=== PATIENT | male | born 1930 | race Caucasian/White ===

== ENCOUNTER 2016-09-22 13:18 | Inpatient (IN) | payer MEDICARE ==
[~2016-09-22] VITALS: Ht 167.6 cm; Wt 62.5 kg
[~2016-09-22 13:18] MED LIST: /PRIM50TA PO; ASPI81TA7 PO; ATEN25TA PO; CLOP75TA2 PO; COMBIN INH; ENAL5TAB PO; GLYB5TAB5 PO; METF1000 PO; METF500T PO; SYNT25TA PO; ZOCO10TA PO; ZYPR5TAB2 PO; preser vision PO
[2016-09-22 14:15] LABS: MEAN CORPUSCULAR HEMOGLOBIN 34.6 pg (27.0-33.0); MEAN CORPUSCULAR HGB CONC 34.4 g/dl (32.0-36.5); MEAN CORPUSCULAR VOLUME 100.5 fl (80.0-96.0); RED CELL DISTRIBUTION WIDTH 12.2 % (11.5-14.5); WHITE BLOOD COUNT 5.7 K/mm3 (4.0-10.0)
[2016-09-22] MEDS ORDERED: PRESCAP6 PO (14:18)
[2016-09-22] MEDS ORDERED: ATEN25TA PO (14:18)
[2016-09-22] MEDS ORDERED: PROS5TAB PO (14:18)
[2016-09-22] MEDS ORDERED: TYLE500T78 PO (14:18)
[2016-09-22] MEDS ORDERED: SYNT50TA PO (14:18)
[2016-09-22] MEDS ORDERED: OLAN5TAB PO (14:18)
[2016-09-22] MEDS ORDERED: SYST1SOL OU (14:18)
[2016-09-22] MEDS ORDERED: INSUDET SC (14:18)
[2016-09-22] MEDS ORDERED: MIRA33504 PO (14:18)
[2016-09-22] MEDS ORDERED: ROPI1TAB PO (14:18)
[2016-09-22] MEDS ORDERED: PRIM50TA6 PO (14:18)
[2016-09-22] MEDS ORDERED: SIMV10TA2 PO (14:18)
[2016-09-22] MEDS ORDERED: ASPI1TAB PO (14:18)
[2016-09-22 14:20] LABS: INR 0.94
--- NOTE | 2016-09-22 14:27 | REP ---
Clinical: Trauma. Technique: AP view of the pelvis with neutral and frog lateral views of the left hip. Findings: There is an acute fracture through the left femoral neck. Underlying diffuse degenerative changes to the visualized lumbosacral spine, pelvis and hips noted. Impression: Acute left femoral neck fracture. Signed by Marvin Miller MD 09/22/2016 02:18 P
--- NOTE | 2016-09-22 14:28 | REP ---
Clinical: Trauma. Technique: Single supine AP view of the chest. Comparison: 01/27/2016. Findings: Mediastinum and cardiac silhouette stable with evidence for prior sternotomy and CABG. Lung ardon demonstrate diffuse chronic interstitial changes as well as scattered calcified pleural plaques. No obvious acute consolidation, effusion, or pneumothorax. Skeletal structures demonstrate osteopenia and degenerative changes without obvious acute fracture. Impression: Chronic changes. No acute cardiopulmonary process. Signed by Marvin Miller MD 09/22/2016 02:19 P
[2016-09-22 14:37] LABS: ALBUMIN 3.2 GM/DL (3.2-5.2); ALBUMIN/GLOBULIN RATIO 0.84 (1.00-1.93); ALKALINE PHOSPHATASE 96 U/L (45-117); ALT/SGPT 77 U/L (12-78); ANION GAP 8 MEQ/L (8-16); AST/SGOT 44 U/L (15-37); BILIRUBIN,DIRECT < 0.1 MG/DL (0.0-0.2); BILIRUBIN,TOTAL 0.3 MG/DL (0.2-1.0); BLOOD UREA NITROGEN 42 MG/DL (7-18); CARBON DIOXIDE LEVEL 26 MEQ/L (21-32); CHLORIDE LEVEL 100 MEQ/L (98-107); CREATININE FOR GFR 1.21 MG/DL (0.70-1.30); GLOMERULAR FILTRATION RATE > 60.0 (>35); GLUCOSE, FASTING 254 MG/DL (83-110); POTASSIUM SERUM 5.1 MEQ/L (3.5-5.1); SODIUM LEVEL 134 MEQ/L (136-145)
--- NOTE | 2016-09-22 15:14 | HPEPDOC ---
Medical History and Physical Date of Admission 09/22/16 History and Physical ATTENDING: Dr. Bergman PCP: Dr Ruggiero CC: S/P Fall HPI: 85yoM with a past medical history significant for dementia/parkinson's, CAD /CABG x 6, HLD, hypothyroid with recent h/o falls who was carrying a bag of garbage out to road and tripped and fell per . He immediately reported left hip pain, EMS was called. History is provided by , pt with dementia. Skin tear left elbow and abrasion to left side of forehead. Denies any fevers, chills , weakness, fatigue, MCKEON, CP, SOB, cough, palpitations, abdominal pain, N/V/D or changes in bowel or bladder habits. Upon presentation to the hospital the patient was found to have , thus the hospitalist team was consulted. PMHx: CAD/CABG- CANNY in past Dementia IDDM HLD Hypothyroid Parkinson's disease- NCN unsteady gait- walker/cane- non compliant PSHX: appendectomy cholecystectomy CAD/CABG SOCHX: Resides in: [place] Marital Status: Kids: 2 grown Employment: retired [employer] Tobacco use: denies ETOH: denies Illicit Drugs: Denies Recent travel: denies Advanced directives: none FAMHX: Mother: [place] Father: CVA Siblings: 1 sister Alive, unknown. 4 sisters/2 brothers PE, CAD, MM. Children: Alive, well ROS: Pt not able to provide history. PE: GEN: 85yoM, appears stated age. Well-nourished, well developed. No acute distress. Alert, not oriented to time or place. Pleasant, interactive. HEENT: Normocephalic, atraumatic. Pupils are equal, round, and reactive to light. Extraocular movements are intact. No nystagmus appreciated. Sclera are nonicteric. Conjunctiva without injection. Nose midline. Nasal turbinates without bogginess. EACs both patent BL. TMs both visualized and love with good cone of light, no bulging or erythema. No facial asymmetry. Moist mucous membranes. Dentition fair. Pharynx pink and moist, no cobblestoning. Neck supple , trachea midline. No lymphadenopathy or thyromegaly appreciated. CHEST: Regular rate and rhythm, +S1, +S2 LUNGS: Clear to auscultation bilaterally. No wheezes, rales, or rhonchi. Breathing appears symmetric and easy. Patient is speaking in full sentences. No accessory muscle use. ABD: Round, soft, non-tender, non-distended. +Bowel sounds throughout. No rebound or guarding. No costovertebral angle tenderness. EXT: Pulses 2+ bilaterally dorsalis pedis and radial. No lower extremity edema appreciated. SKIN: [place], dry, warm. Capillary refill <2sec. No rashes. skin tear left elbow with bandage, abrasion left side of forehead. NEURO: Alert, not oriented to time or place. 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 XR left hip. Acute left femoral neck fracture elbow XR pending A&P: 85yoM with a past medical history significant for dementia/parkinson's, CAD/CABG x 6, HLD, hypothyroid with recent h/o falls who was carrying a bag of garbage out to road and tripped and fell per . He immediately reported left hip pain, EMS was called The patient will be admitted to /S for at least [address] Bergman's service. Left hip fracture Dr Troy consulted, spoke with him, plan for sugery tomorrow. Pt NPO after midnight. Pt is medically optimized at this time. No other alterable factors that could reduce surgical risk. Unsteady gait/mechanical fall. skin tear/abrasion. dry dressing. CAD/CABG. Atenolol with hold paramters, Hold ASA IDDM. SSI. Levemir- will hold tonight. Parkison's disease/dementia. Cont outpt regimen. HLD. Statin Hypothyroid. Supplement DVT prophylaxis. SCD/TEDS The patient is a Full code Vital Signs 185/82 60 18 97.6 96 RA Laboratory Data Labs 24H Laboratory Tests 2 09/22/16 14:00: Aspartate Amino Transf (AST/SGOT) 44H, Alanine Aminotransferase (ALT/SGPT) 77, Alkaline Phosphatase 96, Total Bilirubin 0.3, Direct Bilirubin < 0.1, Albumin 3.2, Albumin/Globulin Ratio 0.84L, Anion Gap 8, Calcium Level 8.0L, Glomerular Filtration Rate > 60.0, Prothromb Time International Ratio 0.94, Prothrombin Time 12.7, Total Protein 7.0 CBC/BMP Laboratory Tests 09/22/16 14:00 Red Blood Count 2.92 L, Mean Corpuscular Volume 100.5 H, Mean Corpuscular Hemoglobin 34.6 H, Mean Corpuscular Hemoglobin Concent 34.4, Red Cell Distribution Width 12.2 Home Medications Scheduled (Preservision Areds 2) 1 Cap Cap 1 CAP PO BID Acetaminophen (Tylenol Extra Strength) 500 Mg Tab 500 MG PO TID Aspirin (Aspirin 81) 81 Mg Tab 81 MG PO DAILY Atenolol (Atenolol) 25 Mg Tab 25 MG PO DAILY Finasteride (Proscar) 5 Mg Tab 5 MG PO DAILY Insulin Detemir (Levemir) 1 Units/0.01 Ml Susp 10 UNITS SC QHS Levothyroxine Sodium (Synthroid) 50 Mcg Tab 50 MCG PO DAILY Olanzapine (Olanzapine) 5 Mg Tab 5 MG PO QHS Polyethylene Glycol (Miralax) 1 Pow Pow 17 GM PO DAILY Polyethylene Glycol (Systane 0.4-0.3 %) 15 Ml Peri 1 DROP OU QHS Primidone (Primidone) 50 Mg Tab 100 MG PO BID Ropinirole Hydrochloride (Ropinirole HCl) 1 Mg Tab 1 MG PO BID Simvastatin (Simvastatin) 10 Mg Tab 10 MG PO QHS Allergies Coded Allergies: Caffeine (Verified Allergy, Unknown, 11/06/12) Loratadine (Verified Adverse Reaction, Mild, CLARITIN D - DIFFICULTY VOIDING, 11/06/12) Pentazocine (Verified Adverse Reaction, Mild, HALLUCINATIONS, 11/06/12) Pseudoephedrine (Verified Adverse Reaction, Mild, CLARITIN D - DIFFICULTY VOIDING, 11/06/12) Magdalene Ferguson Sep 22, 2016 15:14
--- NOTE | 2016-09-22 15:29 | REP ---
CT HEAD WITHOUT CONTRAST: HISTORY: Trauma. COMPARISON: 12/08/2012 Areas of decreased attenuation are present in the periventricular white matter. This represents small vessel ischemic disease. There is no intraparenchymal hemorrhage, mass or midline shift. The ventricular system and cortical sulci are dilated consistent with moderate volume loss. There is no extracerebral collection. There is no fracture. The visualized sinuses are clear. IMPRESSION: 1. Small vessel ischemic disease. 2. Moderate volume loss. Signed by Prosper Chinchilla MD 09/22/2016 03:35 P
[2016-09-22] MEDS ORDERED: DEXTROSE 50% 50 ML SYRINGE IV PRN (15:30)
[2016-09-22] MEDS ORDERED: GLUCAGON FOR INJ 1 MG VIAL (J1610) SC PRN (15:30)
[2016-09-22] MEDS ORDERED: GLUCOSE 4 GM CHEW TABLET PO PRN (15:30)
--- NOTE | 2016-09-22 15:47 | REP ---
LEFT ELBOW SERIES COMPLETE: 09/22/2016. Clinical history: Trauma. Five views are provided including angled oblique lateral. There are no prior pertinent studies. Findings. There is soft tissue swelling over the olecranon and ossific density adjacent to the posterior olecranon at the insertion of the triceps tendon. There is a partial gap between that ossific density and the posterior portion of the olecranon. This suggests avulsion, chronic versus acute. Some focal swelling may reflect acute finding or olecranon bursitis. I do not see any definite joint effusion. There is no supracondylar fracture. 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 The radial head is without a fracture. The coronoid process of the ulna intact. Impression: 1. Soft tissue swelling over the olecranon which may reflect some olecranon bursitis, acute or chronic. There is ossification at the distal course of the triceps near its insertion which appears mildly avulsed, chronic versus acute. Please correlate clinically. 2. Bilateral epicondylitis with some soft tissue calcifications there. No other acute finding. Signed by Adonis Walker MD 09/22/2016 08:22 P
--- NOTE | 2016-09-22 17:32 | EDDOCDS ---
Nurse's Notes [facility] Name: Aashish Pickens Age: 85 yrs Sex: Male : 1930 Arrival Date: 09/22/2016 Time: 13:18 Bed Admit Hold Private MD: Haley Ruggiero E Diagnosis: Fall on same level from slipping, tripping and stumbling;2-part displaced fracture of surgical neck of left humerus Presentation: 09/22 13:22 Presenting complaint: EMS states: tripped and fell at home onto pavement. Pt c/o left ttb hip pain and has abrasion to left forehead, covered upon arrival. Pt at baseline mentality : with demencia. Adult Sepsis Screening: The patient does not have new or worsening altered mentation. Patient's respiratory rate is less than 22. Systolic blood pressure is greater than 100. Patient has a qSOFA score of 0- Negative Sepsis Screen. Suicide/Homicide risk assessment- Unable to assess. Status: Patient is not a well services operator or dependent. Transition of care: patient was not received from another setting of care. 13:22 Acuity: ROXANA Level 3 ttb 13:22 Method Of Arrival: Ambulance ttb Triage Assessment: 13:29 General: Appears in no apparent distress, well nourished, well groomed, Behavior is ttb appropriate for age, at baseline. Pain: Location: left hip. Neurological: Level of Consciousness is awake, alert. Cardiovascular: Heart tones S1 S2 present Chest pain is denied. Respiratory: Airway is patent Respiratory effort is even, unlabored, Respiratory pattern is regular, symmetrical, Denies cough, shortness of breath. GI: Bowel sounds present X 4 quads. Derm: Skin is jaundiced. Derm: abrasion noted to left forehead, left elbow, left knee. Musculoskeletal: Range of motion intact in all extremities. No deformity noted Reports pain in left leg. Historical: - Allergies: Talwin (hallucinations); Morphine (Nausea); Claritin-D 12 Hour (urinary retention); caffeine (hypotension/bradycardia); - Home Meds: 1. aspirin 81 mg Oral chew 1 tab once daily (Last dose: 09/22/2016 08:00) 2. atenolol 25 mg Oral tab 1 tab once daily (Last dose: 09/22/2016 08:00) 3. Levemir subcutaneous 10 unit nightly (Last dose: 09/21/2016 20:00) 4. Synthroid 50 mcg Oral tab 1 tab once daily (Last dose: 09/22/2016 08:00) 5. olanzapine 2.5 mg oral tab 1 tabs nightly (Last dose: 09/21/2016 21:00) 6. primidone 100 mg Oral 1 tab twice a day (Last dose: 09/22/2016 08:00) 7. Proscar 5 mg Oral tab 1 tab once daily (Last dose: 09/22/2016 08:00) 8. Zocor 10 mg Oral tab 1 tab nightly (Last dose: 09/21/2016) 9. PreserVision AREDS oral 1 tab daily 10. ropinirole 1 mg oral tab BID (Last dose: 09/22/2016 08:00) 11. Tylenol 325 mg Oral tab 1 tab twice a day (Last dose: 09/22/2016 08:00) - PMHx: CAD; Dementia; Diabetes - IDDM: controlled; Hypercholesterolemia; Hypothyroidism; Parkinson's Disease; - PSHx: Appendectomy; Cholecystectomy; CABG; - Social history: Smoking status: Patient states was never smoker of tobacco. dementia . - Family history: Not pertinent. - : The pt / caregiver states he / she is not on anticoagulants. Home medication list is obtained from family members. - Exposure Risk Screening:: None identified. - History obtained from: . Screenin:31 Screening information is obtained from the patient. Fall risk: At risk due to age, ttb apparent cognitive impairment, gait disturbance, immobility, injury, prior history of falls, The following interventions are performed due to a positive Fall Risk Screen: Fall Risk is added to Special Handling on the patient Summary Screen. A Fall Risk Bracelet was applied to the patient. Side Rails are placed in the up position. A Call Jarrett is given with instruction to call for help when getting out of bed. Assistance ADL's: Requires assistance with meal preparation, this assistance is provided by bathing, assistance is provided by dressing, assistance is provided by toileting, assistance is provided by ambulation, assistance is provided by housework, assistance is provided by medication administration, assistance is provided by family members. Abuse/DV Screen: The patient / caregiver reports he/she is: pt cannot be assessed for living situation at this time. Nutritional screening: No deficits noted. 16:10 Advance Directives: There is an active Power of Barrel Assembler, wfe. home support is adequate.ttb Assessment: 13:31 General: see triage assessment. here at bedside. Pt in CT.. ttb 14:20 Reassessment: Patient appears in no apparent distress at this time. pt resting on ttb stretcher. at bedside. Labs drawn per orders. NAD noted. Pain meds not needed at this time but will monitor. . Neurological: Level of Consciousness is awake, alert. Respiratory: Airway is patent Respiratory effort is even, unlabored. Derm: Skin is jaundiced. 14:43 General: hospitalist in with pt at this time. Pt remains awake and alert, comfortable ttb on stretcher.. 15:00 General: concerned with discharge after surgery. She is worried she will not be ttb able to adequately take care of pt.....she was encouraged to speak with land use planner and PSA while in hospital for safe discharge.. 15:45 Reassessment: Patient appears in no apparent distress at this time. pt resting on ttb stretcher. NAD noted. Awaiting admission to floor.. 16:50 Reassessment: Patient appears in no apparent distress at this time. SBAR sent to floor. ttb Marco A Quintero to receive pt. Pt dislodged own IV. Confused. Resting on stretcher. Tolerated gingerale well. No diff swallowing. . 17:29 General: IV started . pt resting on stretcher. NAD noted. Report given to floor and is ttb ready to accept pt at this time.. Vital Signs: 13:26 BP 185 / 82; Pulse 60; Resp 18; Temp 97.6(TE); Pulse Ox 96% on R/A; Weight 72.57 kg dsf (R); Height 5 ft. 6 in. (167.64 cm); 16:01 BP 189 / 81 (auto/); ttb 16:06 Pulse 62 MON; Pulse Ox 95% ; ttb 16:27 BP 186 / 83 (auto/); ttb 16:28 Pulse 68 MON; Pulse Ox 92% ; ttb 16:37 Pulse 64 MON; Resp 18; Temp 96.7(O); Pulse Ox 94% on R/A; Pain 0/10; ttb 13:26 Body Mass Index 25.82 (72.57 kg, 167.64 cm) dsf Vitals: 13:26 Log In Time N/A - ambulance arrival. dsf ED Course: 13:19 Patient visited by Marlene Moran. cmb 13:19 Haley Ruggiero is Private Physician. cmb 13:19 Daniel Delarosa FNP is [facility]. ke 13:19 Patient moved to Waiting cmb 13:19 Patient moved to 6 cmb 13:20 Patient visited by Daniel Delarosa FNP. ke 13:20 Patient visited by Daniel Delarosa FNP. ke 13:23 Triage Initiated ttb 13:31 The patient / caregiver is instructed regarding the plan of care and ED course. ttb Accompanied by Family Member, Patient has correct armband on for positive identification. Placed in gown. Bed in low position. Call light in reach. Side rails up X2. 13:31 Maintain field IV. Dressing intact. Good blood return noted. Site clean & dry. Gauge & ttb site: 20LH. 13:32 Patient visited by Cyndee Moreno RN. ttb 13:42 Patient visited by Cyndee Moreno RN. ttb 14:02 CBC Sent. ttb 14:02 BMP Sent. ttb 14:02 Liver Profile Sent. ttb 14:02 PT/INR Sent. ttb 14:04 Suzy Zee is Hospitalizing Provider. ke 14:06 EKG done. (by ED staff). Reviewed by Daniel LIZARRAGA. cmb 14:16 Patient visited by Marlene Moran. cmb 14:20 Patient visited by Cyndee Moreno RN. ttb 14:48 Hip,AP,LAT to include Pelvis Returned. EDMS 14:48 Chest, 1 View Returned. EDMS 15:24 [facility] [place] Payment Agreement was scanned into [employer] and attached to record. lg 15:40 CT Head Without Contrast Returned. EDMS 16:09 Patient visited by Cyndee Moreno RN. ttb 16:13 Patient visited by Cyndee Moreno RN. ttb 16:21 Patient moved to Admit Hold kpj 16:33 Elbow, Complete Returned. EDMS 16:43 Discontinued IV lock intact, bleeding controlled, pressure dressing applied, No ttb redness/swelling at site. pt dislodged by accident. 16:44 No procedures done that require assistance. ttb 16:51 Patient visited by Cyndee Moreno RN. ttb 17:25 Inserted peripheral IV: 20gauge IV in left forearm Patient tolerated the procedure well.ttb Administered Medications: 14:01 Not Given (Other Intervention Used): morphine 2 mg IVP every 15 minutes; Document pain ke score/vitals after each dose (Hold if SBP < 90mmHg) x3 14:02 Drug: NS 0.9% 1000 ml [sodium chloride 0.9 % intravenous solution] Route: IV; Rate: 100 ttb mL/hr; Site: left hand; 16:09 Follow up: Response: No Adverse Reaction; IV Status: Completed infusion ttb 17:28 Not Given (pain meds not given. no nausea): Ondansetron 4 mg IVP once ttb 17:28 Not Given (Patient Refused; no pain per pt. no distress noted): fentaNYL (PF) 25 mcg ttb IVP once Order Results: Lab Order: CBC; SPEC'M 09/22/16 14:00 Test: WHITE BLOOD COUNT; Value: 5.7; Range: 4.0-10.0; Units: K/mm3; Status: F Test: RED BLOOD COUNT; Value: 2.92; Range: 4.30-6.10; Abnormal: Below low normal; Units: M/mm3; Status: F Test: HEMOGLOBIN; Value: 10.1; Range: 14.0-18.0; Abnormal: Below low normal; Units: g/dl; Status: F Test: HEMATOCRIT; Value: 29.3; Range: 42.0-52.0; Abnormal: Below low normal; Units: %; Status: F Test: MEAN CORPUSCULAR VOLUME; Value: 100.5; Range: 80.0-96.0; Abnormal: Above high normal; Units: fl; Status: F Test: MEAN CORPUSCULAR HEMOGLOBIN; Value: 34.6; Range: 27.0-33.0; Abnormal: Above high normal; Units: pg; Status: F Test: MEAN CORPUSCULAR HGB CONC; Value: 34.4; Range: 32.0-36.5; Units: g/dl; Status: F Test: RED CELL DISTRIBUTION WIDTH; Value: 12.2; Range: 11.5-14.5; Units: %; Status: F Test: PLATELET COUNT, AUTOMATED; Value: 227; Range: 150-450; Units: k/mm3; Status: F Lab Order: BMP; SPEC09/22/16 14:00 Test: GLUCOSE, FASTING; Value: 254; Range: 83-110; Abnormal: Above high normal; Units: MG/DL; Status: F Test: BLOOD UREA NITROGEN; Value: 42; Range: 7-18; Abnormal: Above high normal; Units: MG/DL; Status: F Test: CREATININE FOR GFR; Value: 1.21; Range: 0.70-1.30; Units: MG/DL; Status: F Test: GLOMERULAR FILTRATION RATE; Value: > 60.0; Range: >35; Status: F Test: SODIUM LEVEL; Value: 134; Range: 136-145; Abnormal: Below low normal; Units: MEQ/L; Status: F Test: POTASSIUM SERUM; Value: 5.1; Range: 3.5-5.1; Units: MEQ/L; Status: F Test: CHLORIDE LEVEL; Value: 100; Range: 98-107; Units: MEQ/L; Status: F Test: CARBON DIOXIDE LEVEL; Value: 26; Range: 21-32; Units: MEQ/L; Status: F Test: ANION GAP; Value: 8; Range: 8-16; Units: MEQ/L; Status: F Test: CALCIUM LEVEL; Value: 8.0; Range: 8.8-10.2; Abnormal: Below low normal; Units: MG/DL; Status: F Test Note: ; Units are mL/min/1.73 m2 Chronic Kidney Disease Staging per NKF: Stage I & II GFR >=60 Normal to Mildly Decreased Stage III GFR 30-59 Moderately Decreased Stage IV GFR 15-29 Severely Decreased Stage V GFR <15 Very Little GFR Left ESRD GFR <15 on PROPERTY INSPECTOR Lab Order: Liver Profile; SPEC09/22/16 14:00 Test: AST/SGOT; Value: 44; Range: 15-37; Abnormal: Above high normal; Units: U/L; Status: F Test: ALT/SGPT; Value: 77; Range: 12-78; Units: U/L; Status: F Test: ALKALINE PHOSPHATASE; Value: 96; Range: 45-117; Units: U/L; Status: F Test: BILIRUBIN,TOTAL; Value: 0.3; Range: 0.2-1.0; Units: MG/DL; Status: F Test: BILIRUBIN,DIRECT; Value: < 0.1; Range: 0.0-0.2; Units: MG/DL; Status: F Test: TOTAL PROTEIN; Value: 7.0; Range: 6.4-8.2; Units: GM/DL; Status: F Test: ALBUMIN; Value: 3.2; Range: 3.2-5.2; Units: GM/DL; Status: F Test: ALBUMIN/GLOBULIN RATIO; Value: 0.84; Range: 1.00-1.93; Abnormal: Below low normal; Status: F Lab Order: PT/INR; SPEC'M 09/22/16 14:00 Test: PROTHROMBIN TIME; Value: 12.7; Range: 12.3-14.5; Units: SECONDS; Status: F Test: INR; Value: 0.94; Status: F Test Note: ; THERAPUTIC HUMAN INR VALUES INDICATIONS NORMAL RANGES PROPHYLAXIS/TREATMENT OF: VENOUS THROMBOSIS 2.0-3.0 PULMONARY EMBOLISM 2.0-3.0 PREVENTION OF SYSTEMIC EMBOLISM FROM: TISSUE HEART VALVES 2.0-3.0 ACUTE MYOCARDIAL INFARCTION 2.0-3.0 VALVULAR HEART DISEASE 2.0-3.0 ATRIAL FIBRILLATION 2.0-3.0 MECHANICAL VALVES(HIGH RISK) 2.5-3.5 RECURRENT MYOCARDIAL INFARCTION 2.5-3.5 Radiology Order: CT Head Without Contrast Test: CT Head Without Contrast REASON FOR EXAMINATION: Trauma; CT HEAD WITHOUT CONTRAST:; ; HISTORY: Trauma.; ; COMPARISON: 12/08/2012; ; Areas of decreased attenuation are present in the periventricular white matter.; This represents small vessel ischemic disease. There is no intraparenchymal; hemorrhage, mass or midline shift. The ventricular system and cortical sulci are; dilated consistent with moderate volume loss. There is no extracerebral; collection. There is no fracture. The visualized sinuses are clear.; ; IMPRESSION:; ; 1. Small vessel ischemic disease.; ; 2. Moderate volume loss.; ; ; Signed by; Prosper Chinchilla MD 09/22/2016 03:35 P; Radiology Order: Elbow, Complete Test: Elbow, Complete REASON FOR EXAMINATION: Trauma; Left elbow: 09/22/2016; ; Clinical history: Trauma.; ; Five views are provided including angled oblique lateral.; ; There are no prior pertinent studies.; ; Findings. There is soft tissue swelling over the olecranon and ossific density; adjacent to the posterior olecranon at the insertion of the triceps tendon.; There is a partial gap between that ossific density and the posterior portion of; the olecranon. This suggests avulsion, chronic versus acute. Some focal swelling; may reflect acute finding or olecranon bursitis. I do not see any definite joint; effusion. There is no supracondylar fracture. Small amount of soft tissue; calcification adjacent to the medial epicondyle as well as the lateral condyle; representing some chronic epicondylitis with calcifications at the; ligamentous/tendinous insertions. The radial head is without a fracture. The; coronoid process of the ulna intact.; ; Impression:; 1. Soft tissue swelling over the olecranon which may reflect some olecranon; bursitis, acute or chronic. There is ossification at the distal course of the; triceps near its insertion which appears mildly avulsed, chronic versus acute.; Please correlate clinically.; 2. Bilateral epicondylitis with some soft tissue calcifications there. No other; acute finding.; ; ; ; ; Unreviewed; Radiology Order: Hip,AP,LAT to include Pelvis Test: Hip,AP,LAT to include Pelvis REASON FOR EXAMINATION: Trauma; Clinical: Trauma.; ; Technique: AP view of the pelvis with neutral and frog lateral views of the left; hip.; ; Findings:; There is an acute fracture through the left femoral neck. Underlying diffuse; degenerative changes to the visualized lumbosacral spine, pelvis and hips noted.; ; Impression:; Acute left femoral neck fracture.; ; ; Signed by; Marvin Miller MD 09/22/2016 02:18 P; Radiology Order: Chest, 1 View Test: Chest, 1 View REASON FOR EXAMINATION: Trauma; Clinical: Trauma.; ; Technique: Single supine AP view of the chest.; ; Comparison: 01/27/2016.; ; Findings:; Mediastinum and cardiac silhouette stable with evidence for prior sternotomy and; CABG. Lung ardon demonstrate diffuse chronic interstitial changes as well as; scattered calcified pleural plaques. No obvious acute consolidation, effusion,; or pneumothorax. Skeletal structures demonstrate osteopenia and degenerative; changes without obvious acute fracture.; ; Impression:; Chronic changes. No acute cardiopulmonary process.; ; ; Signed by; Marvin Miller MD 09/22/2016 02:19 P; Outcome: 13:32 CT Study completed. ttb 14:04 Decision to Hospitalize by Provider. ke 16:43 Discharge Assessment: Patient awake and alert. patient administered narcotics - no. ttb 17:25 Property given to family member, jeans, belt, shoes taken home by . ttb 17:29 The following High Risk Discharge criteria are identified: Yes, pt transferred to ttb floor.. Admitted to Med/Surg accompanied by tech, via stretcher, with chart. Condition: stable. Admission hand-off: Report called to MARCO A Quintero receiving pt. SBAR received. 17:31 Patient left the ED. ttb Signatures: Dispatcher [employer] EDFL Dilcia Fischer RN RN Tamara Frenandez, Javier Reg Daniel Delarosa, CUSHION GUM APPLICATOR CUSHION GUM APPLICATORIfeoma JohnsonRN RN Marlene Bro Teresa, RN RN ttb MTDD
--- NOTE | 2016-09-22 17:32 | EDDOCDS ---
Physician Documentation [facility] Name: Aashish Pickens Age: 85 yrs Sex: Male : 1930 Arrival Date: 09/22/2016 Time: 13:18 Bed Admit Hold Private MD: Haley Ruggiero E Disposition: 09/22/16 14:04 Hospitalization ordered by Suzy Zee for Inpatient Admission. Preliminary diagnosis are Fall on same level from slipping, tripping and stumbling, 2-part displaced fracture of surgical neck of left humerus. - Bed requested for 5 [place]. - Status is Inpatient Admission. ttb - Condition is Stable. - Problem is new. - Symptoms are unchanged. Historical: - Allergies: Talwin (hallucinations); Morphine (Nausea); Claritin-D 12 Hour (urinary retention); caffeine (hypotension/bradycardia); - Home Meds: 1. aspirin 81 mg Oral chew 1 tab once daily (Last dose: 09/22/2016 08:00) 2. atenolol 25 mg Oral tab 1 tab once daily (Last dose: 09/22/2016 08:00) 3. Levemir subcutaneous 10 unit nightly (Last dose: 09/21/2016 20:00) 4. Synthroid 50 mcg Oral tab 1 tab once daily (Last dose: 09/22/2016 08:00) 5. olanzapine 2.5 mg oral tab 1 tabs nightly (Last dose: 09/21/2016 21:00) 6. primidone 100 mg Oral 1 tab twice a day (Last dose: 09/22/2016 08:00) 7. Proscar 5 mg Oral tab 1 tab once daily (Last dose: 09/22/2016 08:00) 8. Zocor 10 mg Oral tab 1 tab nightly (Last dose: 09/21/2016) 9. PreserVision AREDS oral 1 tab daily 10. ropinirole 1 mg oral tab BID (Last dose: 09/22/2016 08:00) 11. Tylenol 325 mg Oral tab 1 tab twice a day (Last dose: 09/22/2016 08:00) - PMHx: CAD; Dementia; Diabetes - IDDM: controlled; Hypercholesterolemia; Hypothyroidism; Parkinson's Disease; - PSHx: Appendectomy; Cholecystectomy; CABG; - Social history: Smoking status: Patient states was never smoker of tobacco. dementia . - Family history: Not pertinent. - : The pt / caregiver states he / she is not on anticoagulants. Home medication list is obtained from family members. - Exposure Risk Screening:: None identified. - History obtained from: . Vital Signs: 09/22 13:26 BP 185 / 82; Pulse 60; Resp 18; Temp 97.6(TE); Pulse Ox 96% on R/A; Weight 72.57 kg / dsf 159.99 lbs (R); Height 5 ft. 6 in. (167.64 cm); 16:01 BP 189 / 81 (auto/); ttb 16:06 Pulse 62 MON; Pulse Ox 95% ; ttb 16:27 BP 186 / 83 (auto/); ttb 16:28 Pulse 68 MON; Pulse Ox 92% ; ttb 16:37 Pulse 64 MON; Resp 18; Temp 96.7(O); Pulse Ox 94% on R/A; Pain 0/10; ttb 13:26 Body Mass Index 25.82 (72.57 kg, 167.64 cm) dsf MDM: 13:25 Elbow, Complete Ordered. EDMS 13:25 CT Head Without Contrast Ordered. EDMS 13:25 Hip,AP,LAT to include Pelvis Ordered. EDMS 13:39 NS 0.9% 1000 ml IV at 100 mL/hr continuous ordered. ke 13:39 Ondansetron 4 mg IVP once ordered. ke 13:40 morphine 2 mg IVP every 15 minutes; Document pain score/vitals after each dose (Hold if ke SBP < 90mmHg) x3 ordered. 13:41 Chest, 1 View Ordered. EDMS 13:41 CBC Ordered. EDMS 13:41 BMP Ordered. EDMS 13:41 Liver Profile Ordered. EDMS 13:41 PT/INR Ordered. EDMS 13:41 ECG WITH READING ER PHYS+CARDIAG ordered. EDMS 13:41 UA Ordered. EDMS 13:42 BED REQUEST+ADM ordered. EDMS 14:01 morphine 2 mg IVP every 15 minutes; Document pain score/vitals after each dose (Hold if ke SBP < 90mmHg) x3 ordered. 14:01 fentaNYL (PF) 25 mcg IVP once ordered. ke 14:54 Financial registration complete. lg 15:24 [facility] [place] Agreement was scanned into [employer] and attached to record. lg 15:26 CONSISTENT CARBOHYDRATES ordered. EDMS 15:26 NPO DIET ordered. EDMS 15:58 Admission / Observation Status ordered. EDMS Administered Medications: 14:01 Not Given (Other Intervention Used): morphine 2 mg IVP every 15 minutes; Document pain ke score/vitals after each dose (Hold if SBP < 90mmHg) x3 14:02 Drug: NS 0.9% 1000 ml [sodium chloride 0.9 % intravenous solution] Route: IV; Rate: 100 ttb mL/hr; Site: left hand; 16:09 Follow up: Response: No Adverse Reaction; IV Status: Completed infusion ttb 17:28 Not Given (pain meds not given. no nausea): Ondansetron 4 mg IVP once ttb 17:28 Not Given (Patient Refused; no pain per pt. no distress noted): fentaNYL (PF) 25 mcg ttb IVP once Signatures: Dispatcher [employer] EDMS Tamara Polo, Javier Reg lg Daniel Delarosa, SUPERVISOR REAL ESTATE OFFICE SUPERVISOR REAL ESTATE OFFICE Cyndee Paz RN RN ttb Maria D Hernandez RN RN [id number] The chart was reviewed and I authenticate all verbal orders and agree with the evaluation and treatment provided.Attachments: 15:24 [facility] Payment Agreement lg MTDD
[2016-09-22 18:00] VITALS: BP 172/79
[2016-09-22] MEDS: HumaLOG INSULIN (NovoLOG) PER UNIT SC SCH (18:18)
[2016-09-22] MEDS: OLANZapine 5 MG TAB PO SCH (21:00)
[2016-09-22] MEDS: PRIMIDONE 50 MG TAB PO SCH (21:00)
[2016-09-22] MEDS: rOPINIRole 1MG TAB PO SCH (21:00)
[2016-09-22] MEDS: SIMVASTATIN 10 MG TAB PO SCH (21:00)
--- NOTE | 2016-09-22 21:09 | CR ---
DATE OF CONSULTATION: 09/22/2015 CHIEF COMPLAINT: Left hip pain. HISTORY OF PRESENT ILLNESS This is a 85-year-old male who was helping carry some trash out to the garbage and he tripped and fell. Had left hip pain, could not stand or bear weight. Does have a history of dementia, Parkinson's disease and other medical issues. 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 MEDICAL HISTORY: Includes coronary artery disease, dementia, insulin-dependent diabetes, hypothyroid Parkinson's disease, gait disturbance, noncompliance. PAST SURGICAL HISTORY: Includes appendectomy, cholecystectomy, Coronary artery bypass graft. SOCIAL HISTORY Lives with his spouse in [place]. Does not drink or smoke. FAMILY HISTORY: Is not contributory. REVIEW OF SYSTEMS He is not able to participate with a review of systems. CLINICAL EXAMINATION: He appears to be stated age. He is alert and confused. He is asking for his trousers. He is pleasant and not combative. He is not short of breath and he does not appear to be very uncomfortable. CORONARY: Seems to be regular. LUNGS: He is not short of breath. ABDOMEN: Is soft and nontender. EXTREMITY: Pain with manipulation of the left hip. Slight shortening left compared to right. Warm, well-perfused lower extremity. No peripheral edema. SKIN: Healthy. Abrasion on the left elbow. Small abrasion left side of forehead. IMAGING STUDIES: Femoral neck fracture displaced. IMPRESSION: 85-year-old male femoral neck fracture, displaced, traumatic. Previous ambulator. RECOMMENDATIONS: I contacted the patient's spouse on the telephone and talked with her about the patient's condition. This spouse, having been a nurse understood the patient's pathology and we talked about recommending a hemiarthroplasty which would be a partial hip replacement versus doing nothing. His , Aida, agreed that as a previous ambulator he would prefer to walk again and agreed that hemiarthroplasty was a0 reasonable option. We completed a consent document, telephone consent, which was witnessed by a floor nurse. We talked about the procedure proposed, alternatives such as doing nothing, risks including but not limited to , limp, infection, need for more surgery or dislocation and she agreed that we should proceed. He will be added on the OR schedule as an add-on. I will coordinate care with the hospitalist and the OR team. I also spoke with the patient's about the possibility that Dr. Jimy Field who is operations consultant tomorrow 09/23 may be participating or completing the case. The spouse expressed no concerns whether it was Dr. Jimy Field or myself to do this case.
[2016-09-22 22:00] VITALS: BP 180/74
[2016-09-23] VITALS (7 sets, daily range): BP systolic 130–206; BP diastolic 60–94
[2016-09-23] MEDS: SIMVASTATIN 10 MG TAB PO SCH ×2 (00:16→21:36)
[2016-09-23] MEDS: PRIMIDONE 50 MG TAB PO SCH ×3 (00:16→21:36)
[2016-09-23] MEDS: OLANZapine 5 MG TAB PO SCH ×2 (00:17→21:36)
[2016-09-23] MEDS: rOPINIRole 1MG TAB PO SCH ×3 (00:17→21:36)
[2016-09-23] MEDS ORDERED: ACETAMINOPHEN 650 MG SUPP PR PRN (04:00)
[2016-09-23] MEDS ORDERED: ACETAMINOPHEN 650 MG SUPP PR ONE (04:00)
[2016-09-23] MEDS: LEVOTHYROXINE 0.05 MG TAB (50 MCG) PO SCH (06:16)
[2016-09-23 06:48] LABS: BASO % 0.1 % (0.0-1.0); EOS # 0.1 K/mm3 (0.0-0.50); EOS % 0.7 % (0.0-3.0); LARGE UNSTAINED CELL # 0.1 K/mm3 (0.0-0.4); LARGE UNSTAINED CELL % 0.8 % (0.0-4.0); LYMPH # 0.6 K/mm3 (1.5-4.5); LYMPH % 5.7 % (24.0-44.0); MEAN CORPUSCULAR HEMOGLOBIN 35.2 pg (27.0-33.0); MEAN CORPUSCULAR HGB CONC 34.9 g/dl (32.0-36.5); MEAN CORPUSCULAR VOLUME 100.8 fl (80.0-96.0); MONO # 0.6 K/mm3 (0.0-0.8); MONO % 5.7 % (0.0-5.0); NEUTROPHILS # 8.4 K/mm3 (1.8-7.7); PLATELET COUNT, AUTOMATED 250 k/mm3 (150-450); RED CELL DISTRIBUTION WIDTH 12.7 % (11.5-14.5); WHITE BLOOD COUNT 9.7 K/mm3 (4.0-10.0)
[2016-09-23 07:02] LABS: ALBUMIN 3.3 GM/DL (3.2-5.2); ALBUMIN/GLOBULIN RATIO 0.97 (1.00-1.93); ALKALINE PHOSPHATASE 96 U/L (45-117); ALT/SGPT 63 U/L (12-78); ANION GAP 11 MEQ/L (8-16); AST/SGOT 34 U/L (15-37); BILIRUBIN,TOTAL 0.6 MG/DL (0.2-1.0); BLOOD UREA NITROGEN 36 MG/DL (7-18); CALCIUM LEVEL 8.6 MG/DL (8.8-10.2); CARBON DIOXIDE LEVEL 24 MEQ/L (21-32); CHLORIDE LEVEL 100 MEQ/L (98-107); CREATININE FOR GFR 0.89 MG/DL (0.70-1.30); GLOMERULAR FILTRATION RATE > 60.0 (>35); GLUCOSE, FASTING 174 MG/DL (83-110); POTASSIUM SERUM 4.2 MEQ/L (3.5-5.1); SODIUM LEVEL 135 MEQ/L (136-145); TOTAL PROTEIN 6.7 GM/DL (6.4-8.2)
[2016-09-23] MEDS: HumaLOG INSULIN (NovoLOG) PER UNIT SC SCH ×3 (07:30→17:30)
[2016-09-23] MEDS: ATENOLOL 25 MG TAB PO SCH (08:05)
[2016-09-23] MEDS: MIRALAX *UNIT DOSE* 17GM PACKET PO SCH (08:40)
[2016-09-23] MEDS: SENOKOT S TAB PO SCH ×2 (08:40→21:36)
[2016-09-23] MEDS: MOM 30ML SUSPENSION UDC PO SCH (08:40)
[2016-09-23] MEDS: FINASTERIDE 5 MG TAB PO SCH (09:00)
[2016-09-23] MEDS ORDERED: NS 1,000 ML IV ONE (09:45)
[2016-09-23] MEDS ORDERED: MORPHINE 2 MG/ML 1ML SYRINGE IV PRN (10:00)
[2016-09-23] MEDS ORDERED: PROPOFOL 500 MG/50 ML VIAL As Ordered ONE (12:37)
[2016-09-23] MEDS ORDERED: fentaNYL 100 MCG/2 ML INJECTION (J3010) As Ordered ONE (12:40)
[2016-09-23] MEDS ORDERED: KETAMINE HCL 200 MG/20 ML VIAL As Ordered ONE (12:40)
[2016-09-23] MEDS ORDERED: DESFLURANE 240 ML INHALANT As Ordered ONE (12:49)
[2016-09-23] MEDS ORDERED: MIDAZOLAM INJ 2 MG/2 ML VIAL (J2250) As Ordered ONE (13:09)
--- NOTE | 2016-09-23 13:26 | IPNPDOC ---
Text Note Date of Service The patient was seen on 09/23/16. NOTE Subjective: Pt feels well. Has some pain at the hip fx region. Objective: Vitals: (see below) General: No acute distress, laying comfortably in bed. HEENT: Moist mucous membranes. Neck: No JVD or lymphadenopathy Cardiac: RRR, No murmurs Pulm: Clear to auscultation b/l. No wheezing, rhonchi Abd: NT/ND + BS Ext: No edema or cyanosis. Left hip pain with movement from fx. Distal pulses intact. Labs (see below) Images: CXR 09/22/16 Findings: Mediastinum and cardiac silhouette stable with evidence for prior sternotomy and CABG. Lung ardon demonstrate diffuse chronic interstitial changes as well as scattered calcified pleural plaques. No obvious acute consolidation, effusion, or pneumothorax. Skeletal structures demonstrate osteopenia and degenerative changes without obvious acute fracture. Impression: Chronic changes. No acute cardiopulmonary process. CT Head 09/22/16 IMPRESSION: 1. Small vessel ischemic disease. 2. Moderate volume loss. X ray Left elbow Findings. There is soft tissue swelling over the olecranon and ossific density adjacent to the posterior olecranon at the insertion of the triceps tendon. There is a partial gap between that ossific density and the posterior portion of the olecranon. This suggests avulsion, chronic versus acute. Some focal swelling may reflect acute finding or olecranon bursitis. I do not see any definite joint effusion. There is no supracondylar fracture. 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 The radial head is without a fracture. The coronoid process of the ulna intact. Impression: 1. Soft tissue swelling over the olecranon which may reflect some olecranon bursitis, acute or chronic. There is ossification at the distal course of the triceps near its insertion which appears mildly avulsed, chronic versus acute. Please correlate clinically. 2. Bilateral epicondylitis with some soft tissue calcifications there. No other acute finding. X ray left hip 09/22/16 Impression: Acute left femoral neck fracture. Assessment/Plan 1. Left hip fx - Going for OR today. Mechanical fall. No syncope/seizure like activity. DVT prophy/pain management per ortho. 2. H/o CAD s/p CABG x 6 per medical records. No on ASA. On BB. 3. Dementia 4. Parkinson's dz 5. Hypothyroidism - cont Synthroid 6. HLD- on Statin 7. IDDM- cont levemir/SSI 8. Gait dysfunction with baseline Parkinson's - Physical therapy consult DVT prophy: Per orthopedics Pt is an intermediate risk for an intermediate risk procedure. RCRI 2 with 6.6 % risk of major cardiac event. Pt is not in ACS. No acute arrhythmias at this time. Spoke with Dr. Caal, given CAD s/p CABG and inability to gauge exercise tolerance with h/o parkinson's dz, will continue atenolol, however will need ASA after procedure. If Coumadin is used for DVT prophy, then pt will need ASA started after completing coumadin therapy. Pt is medically optimized. Pt is DNR/DNI. VS,Fishbone, I+O VS, Fishbone, I+O Laboratory Tests 09/22/16 14:00 Red Blood Count 2.92 L, Mean Corpuscular Volume 100.5 H, Mean Corpuscular Hemoglobin 34.6 H, Mean Corpuscular Hemoglobin Concent 34.4, Red Cell Distribution Width 12.2 09/23/16 06:26 Red Blood Count 3.02 L, Mean Corpuscular Volume 100.8 H, Mean Corpuscular Hemoglobin 35.2 H, Mean Corpuscular Hemoglobin Concent 34.9, Red Cell Distribution Width 12.7, Calcium Level 8.6 L, Aspartate Amino Transf (AST/SGOT) 34, Alanine Aminotransferase (ALT/SGPT) 63, Alkaline Phosphatase 96, Total Bilirubin 0.6 #, Total Protein 6.7, Albumin 3.3, Neutrophils (%) (Auto) 87.0 H, Lymphocytes (%) (Auto) 5.7 L, Monocytes (%) (Auto) 5.7 H, Eosinophils (%) (Auto ) 0.7, Basophils (%) (Auto) 0.1, Neutrophils # (Auto) 8.4 H, Lymphocytes # (Auto ) 0.6 L, Monocytes # (Auto) 0.6, Eosinophils # (Auto) 0.1, Basophils # (Auto) 0.0 Vital Signs Date Time Temp Pulse Resp B/P Pulse Ox O2 Delivery O2 Flow Rate FiO2 09/23/16 08:05 76 1130/60 09/23/16 06:00 97.4 18 96 Room Air I&O- Last 24 Hours up to 6 AM 09/23/16 06:00 Intake Total 0 ml Output Total 300 ml Balance -300 ml TALON RUIZ MD Sep 23, 2016 13:26
[2016-09-23] MEDS ORDERED: ePHEDrine SULFATE 25 MG/5 ML(5MG/ML) SYRINGE As Ordered ONE (14:09)
[2016-09-23] MEDS ORDERED: PHENYLephrine HCL 500 MCG/5 ML (100MCG/ML) SYRINGE (J2370) As Ordered ONE (14:09)
[2016-09-23] MEDS ORDERED: ceFAZolin 1GM INJ (J0690) As Ordered ONE (14:15)
[2016-09-23] MEDS ORDERED: EPINEPHrine INJ 1 MG/ML 1ML VIAL/AMP As Ordered ONE (14:16)
[2016-09-23] MEDS ORDERED: ceFAZolin 2 GM/D5W 50 ML IV BAG (J0690) As Ordered ONE (14:17)
[2016-09-23] MEDS ORDERED: ceFAZolin 1GM INJ (J0690) IR ONE (14:34)
[2016-09-23] MEDS ORDERED: EPINEPHrine INJ 1 MG/ML 1ML VIAL/AMP XX ONE (14:34)
[2016-09-23] MEDS ORDERED: PERCOCET 5MG/325MG TAB PO PRN (16:15)
[2016-09-23] MEDS ORDERED: LR 1,000 ML IV SCH (16:15)
[2016-09-23] MEDS ORDERED: ONDANSETRON 4MG/2ML VIAL (J2405) IV PRN (16:15)
[2016-09-23] MEDS ORDERED: fentaNYL 100 MCG/2 ML INJECTION (J3010) IV PRN (16:15)
[2016-09-23] MEDS ORDERED: WARFARIN SOD 5 MG TAB PO SCH ×2 (17:00)
--- NOTE | 2016-09-23 18:57 | RO ---
DATE OF PROCEDURE: 09/23/2016 PREOPERATIVE DIAGNOSIS: Left femoral neck fracture. POSTOPERATIVE DIAGNOSIS: Left femoral neck fracture. OPERATIVE PROCEDURE: Left hip cemented hemiarthroplasty. SURGEON: Evi Field MD VOICE COACH: None. ANESTHESIA: Spinal. ESTIMATED BLOOD LOSS: 100 mL SPECIMENS: Femoral head. PROSTHESES: Size 4 [place] cemented stem with a 12 mm centralizer and a size 3 cement restricter with a +0 neck and a 51 mm head. COMPLICATIONS: None. DESCRIPTION OF PROCEDURE: Antibiotic were given intravenously preoperatively. A spinal anesthetic was induced. Pierre catheter placed. He was placed in lateral decubitus position onto a blevins bag and axillary roll utilized, down leg well padded, especially peroneal nerve. Left hip area was prepped and draped in the usual sterile fashion. After appropriate time out, a longitudinal incision was made for a direct lateral approach to the hip. Bovie cautery used to coagulate crossing vessels. Tensor fascia divided in line with the skin incision. I split the gluteus meatus anterior one-third, posterior two-thirds junction. Doubly divided the underlying hip capsule exposing the fractured femoral neck, which was displaced and eventually incised the capsule so we could identify the femoral head. We externally rotated the hip and placed his leg into a sterile bag anteriorly and then found the piriformis fossa and used the starter reamer and then the canal finding reamer and then the lateralizing reamer. Then a femoral neck osteotomy was performed using the saw. It was noteworthy that there was a posterior fracture fragment that extended down to the lesser trochanter, but there still remained a calcar proximal to that level anteriorly in the mid portion of the femur. This is more or less an extramedullary fracture fragment down toward the lesser trochanter. Thus, there was still adequate calcar to rest the prosthesis. I sized up to a size #4 broach. I then removed the femoral head. There was significant soft tissue capsular attachments to this area and ligamentum teres which had to be divided, then I removed it from the depths of the acetabulum. I sized the femoral head at 51 mm. We tried to do a trial, but it was difficult to get it on. I feared the rotation torque necessary to do a trial and risk fracturing the femur. Thus I elected to cement it as is. It was about a finger's breadth above the lesser trochanter so I thought we would be safe either using a -3 or +0. Thus, at this point, the cement was mixed on the back table. I copiously pulsatile lavage irrigated out the femoral canal, placed a #3 cement restricter sizing off the real stem. I then placed several dry sponges down the femoral canal with constant suction irrigation with a Doe tip after canal brushing out the femoral canal. I then placed epinephrine soaked sponges down the canal and as the cement was being mixed I eventually removed the epinephrine soaked sponges, placed dry sponges down and then introduced the cement, then the stem and held it to the cement and it hardened, removing excess. I then trialed with a -3 and it actually went very well and easily and it had excellent stability in flexion, internal rotation and extension external rotation. Minimal telescoping. Because it went in so easy, I thought we could get by with a +0 and thus that is what we elected to do. I then removed the trial, dried off the trunnion, placed the +0 neck sleeve followed by the 51 mm ball then reduced the hip. Certainly, there was no soft tissue impingement in the depths of the acetabulum and copiously irrigated before reducing. I then closed the gluteus meatus and minimum back anatomically to the greater trochanter with a series of #1 interrupted PDS sutures, then used a #1 Stratafix to run the tensor fascia, irrigating them, then closed the deep subdermal tissues with interrupted #2-0 PDS sutures. Skin was closed with allen, covered by Adaptic dry sterile bulky dressing. He was then turned supine and transferred to his bed and went to the recovery room in stable condition. There were no intraoperative complications.
[2016-09-24 02:00] VITALS: BP 168/77
[2016-09-24 06:00] VITALS: BP 132/80
[2016-09-24] MEDS: LEVOTHYROXINE 0.05 MG TAB (50 MCG) PO SCH (06:23)
[2016-09-24 07:00] LABS: BASO % 0.1 % (0.0-1.0); EOS % 0.7 % (0.0-3.0); LARGE UNSTAINED CELL # 0.1 K/mm3 (0.0-0.4); LYMPH # 0.6 K/mm3 (1.5-4.5); MEAN CORPUSCULAR HEMOGLOBIN 34.9 pg (27.0-33.0); MEAN CORPUSCULAR HGB CONC 33.9 g/dl (32.0-36.5); MEAN CORPUSCULAR VOLUME 102.9 fl (80.0-96.0); MONO # 0.6 K/mm3 (0.0-0.8); MONO % 7.8 % (0.0-5.0); NEUTROPHILS # 5.9 K/mm3 (1.8-7.7); NEUTROPHILS % 83.4 % (36.0-66.0); PLATELET COUNT, AUTOMATED 209 k/mm3 (150-450)
[2016-09-24 07:19] LABS: INR 1.15
[2016-09-24 07:23] LABS: ALBUMIN 2.8 GM/DL (3.2-5.2); ALKALINE PHOSPHATASE 79 U/L (45-117); ALT/SGPT 38 U/L (12-78); ANION GAP 11 MEQ/L (8-16); AST/SGOT 28 U/L (15-37); BILIRUBIN,TOTAL 0.4 MG/DL (0.2-1.0); BLOOD UREA NITROGEN 32 MG/DL (7-18); CALCIUM LEVEL 8.4 MG/DL (8.8-10.2); CARBON DIOXIDE LEVEL 24 MEQ/L (21-32); CHLORIDE LEVEL 101 MEQ/L (98-107); GLOMERULAR FILTRATION RATE > 60.0 (>35); GLUCOSE, FASTING 263 MG/DL (83-110); MAGNESIUM LEVEL 1.9 MG/DL (1.8-2.4); POTASSIUM SERUM 4.2 MEQ/L (3.5-5.1); SODIUM LEVEL 136 MEQ/L (136-145); TOTAL PROTEIN 6.3 GM/DL (6.4-8.2)
[2016-09-24] MEDS: HumaLOG INSULIN (NovoLOG) PER UNIT SC SCH ×3 (08:07→17:09)
[2016-09-24] MEDS: FINASTERIDE 5 MG TAB PO SCH (08:08)
[2016-09-24] MEDS: rOPINIRole 1MG TAB PO SCH ×2 (08:08→20:08)
[2016-09-24] MEDS: SENOKOT S TAB PO SCH ×2 (08:08→20:08)
[2016-09-24] MEDS: PRIMIDONE 50 MG TAB PO SCH ×2 (08:08→20:08)
[2016-09-24] MEDS: ACETAMINOPHEN TAB 650MG DOSE (2X325MG) PO PRN ×2 (08:08→20:11)
[2016-09-24] MEDS: ATENOLOL 25 MG TAB PO SCH (08:08)
[2016-09-24] MEDS: MOM 30ML SUSPENSION UDC PO SCH (08:09)
[2016-09-24] MEDS: MIRALAX *UNIT DOSE* 17GM PACKET PO SCH (08:09)
--- NOTE | 2016-09-24 13:35 | REP ---
Clinical: Status post arthroplasty. Technique: AP and cross-table lateral views. Findings: The patient is status post left hip replacement with normal positioning and appearance to the femoral and acetabular components. Overlying postsurgical changes appreciated. Impression: Satisfactory left hip replacement radiographs. Signed by Marvin Miller MD 09/24/2016 01:26 P
[2016-09-24 14:00] VITALS: BP 144/67
[2016-09-24] MEDS ORDERED: ceFAZolin 1GM INJ (J0690) IM ONE (14:30)
--- NOTE | 2016-09-24 15:02 | ECGEPIP ---
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
--- NOTE | 2016-09-24 16:03 | IPNPDOC ---
Text Note Date of Service The patient was seen on 09/24/16. NOTE Subjective: Pt feels well. Has some pain at the hip fx region. Objective: Vitals: (see below) General: No acute distress, laying comfortably in bed. HEENT: Moist mucous membranes. Neck: No JVD or lymphadenopathy Cardiac: RRR, No murmurs Pulm: Clear to auscultation b/l. No wheezing, rhonchi Abd: NT/ND + BS Ext: No edema or cyanosis. Distal pulses intact. Left hip surg site with bandage in tact. mild swelling. No bleeding. Labs (see below) Images: CXR 09/22/16 Findings: Mediastinum and cardiac silhouette stable with evidence for prior sternotomy and CABG. Lung ardon demonstrate diffuse chronic interstitial changes as well as scattered calcified pleural plaques. No obvious acute consolidation, effusion, or pneumothorax. Skeletal structures demonstrate osteopenia and degenerative changes without obvious acute fracture. Impression: Chronic changes. No acute cardiopulmonary process. CT Head 09/22/16 IMPRESSION: 1. Small vessel ischemic disease. 2. Moderate volume loss. X ray Left elbow Findings. There is soft tissue swelling over the olecranon and ossific density adjacent to the posterior olecranon at the insertion of the triceps tendon. There is a partial gap between that ossific density and the posterior portion of the olecranon. This suggests avulsion, chronic versus acute. Some focal swelling may reflect acute finding or olecranon bursitis. I do not see any definite joint effusion. There is no supracondylar fracture. 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 The radial head is without a fracture. The coronoid process of the ulna intact. Impression: 1. Soft tissue swelling over the olecranon which may reflect some olecranon bursitis, acute or chronic. There is ossification at the distal course of the triceps near its insertion which appears mildly avulsed, chronic versus acute. Please correlate clinically. 2. Bilateral epicondylitis with some soft tissue calcifications there. No other acute finding. X ray left hip 09/22/16 Impression: Acute left femoral neck fracture. Assessment/Plan 1. Left hip fx - s/p left hip repair 09/23/16. Mechanical fall. No syncope/ seizure like activity. DVT prophy/pain management per ortho. 2. H/o CAD s/p CABG x 6 per medical records. No on ASA. On BB. 3. Dementia 4. Parkinson's dz 5. Hypothyroidism - cont Synthroid 6. HLD- on Statin 7. IDDM- cont levemir/SSI 8. Gait dysfunction with baseline Parkinson's - Physical therapy consult DVT prophy: Per orthopedics Pt is DNR/DNI. VS,Fishbone, I+O VS, Fishbone, I+O Laboratory Tests 09/24/16 06:27 Calcium Level 8.4 L, Aspartate Amino Transf (AST/SGOT) 28, Alanine Aminotransferase (ALT/SGPT) 38, Alkaline Phosphatase 79, Total Bilirubin 0.4, Total Protein 6.3 L, Albumin 2.8 L, Red Blood Count 2.55 L, Mean Corpuscular Volume 102.9 H, Mean Corpuscular Hemoglobin 34.9 H, Mean Corpuscular Hemoglobin Concent 33.9, Red Cell Distribution Width 13.0, Neutrophils (%) (Auto) 83.4 H, Lymphocytes (%) (Auto) 6.0 L, Monocytes (%) (Auto) 7.8 H, Eosinophils (%) (Auto ) 0.7, Basophils (%) (Auto) 0.1, Neutrophils # (Auto) 5.9, Lymphocytes # (Auto) 0.6 L, Monocytes # (Auto) 0.6, Eosinophils # (Auto) 0.0, Basophils # (Auto) 0.0 Vital Signs Date Time Temp Pulse Resp B/P Pulse Ox O2 Delivery O2 Flow Rate FiO2 09/24/16 14:00 99.7 69 17 144/67 97 Room Air 0.0 I&O- Last 24 Hours up to 6 AM 09/24/16 06:00 Intake Total 2490 ml Output Total 1700 ml Balance 790 ml TALON RUIZ MD Sep 24, 2016 16:03
[2016-09-24] MEDS ORDERED: WARFARIN SOD 5 MG TAB PO ONE (17:00)
--- NOTE | 2016-09-24 18:32 | EDDOCDS ---
Physician Documentation [facility] Name: Aashish Pickens Age: 85 yrs Sex: Male : 1930 Arrival Date: 09/22/2016 Time: 13:18 Bed Admit Hold Private MD: Haley Ruggiero E Disposition: 09/22/16 14:04 Hospitalization ordered by Suzy Zee for Inpatient Admission. Preliminary diagnosis are Fall on same level from slipping, tripping and stumbling, 2-part displaced fracture of surgical neck of left humerus. - Bed requested for 5 [place]. - Status is Inpatient Admission. ttb - Condition is Stable. - Problem is new. - Symptoms are unchanged. Historical: - Allergies: Talwin (hallucinations); Morphine (Nausea); Claritin-D 12 Hour (urinary retention); caffeine (hypotension/bradycardia); - Home Meds: 1. aspirin 81 mg Oral chew 1 tab once daily (Last dose: 09/22/2016 08:00) 2. atenolol 25 mg Oral tab 1 tab once daily (Last dose: 09/22/2016 08:00) 3. Levemir subcutaneous 10 unit nightly (Last dose: 09/21/2016 20:00) 4. Synthroid 50 mcg Oral tab 1 tab once daily (Last dose: 09/22/2016 08:00) 5. olanzapine 2.5 mg oral tab 1 tabs nightly (Last dose: 09/21/2016 21:00) 6. primidone 100 mg Oral 1 tab twice a day (Last dose: 09/22/2016 08:00) 7. Proscar 5 mg Oral tab 1 tab once daily (Last dose: 09/22/2016 08:00) 8. Zocor 10 mg Oral tab 1 tab nightly (Last dose: 09/21/2016) 9. PreserVision AREDS oral 1 tab daily 10. ropinirole 1 mg oral tab BID (Last dose: 09/22/2016 08:00) 11. Tylenol 325 mg Oral tab 1 tab twice a day (Last dose: 09/22/2016 08:00) - PMHx: CAD; Dementia; Diabetes - IDDM: controlled; Hypercholesterolemia; Hypothyroidism; Parkinson's Disease; - PSHx: Appendectomy; Cholecystectomy; CABG; - Social history: Smoking status: Patient states was never smoker of tobacco. dementia . - Family history: Not pertinent. - : The pt / caregiver states he / she is not on anticoagulants. Home medication list is obtained from family members. - Exposure Risk Screening:: None identified. - History obtained from: . Vital Signs: 09/22 13:26 BP 185 / 82; Pulse 60; Resp 18; Temp 97.6(TE); Pulse Ox 96% on R/A; Weight 72.57 kg / dsf 159.99 lbs (R); Height 5 ft. 6 in. (167.64 cm); 16:01 BP 189 / 81 (auto/); ttb 16:06 Pulse 62 MON; Pulse Ox 95% ; ttb 16:27 BP 186 / 83 (auto/); ttb 16:28 Pulse 68 MON; Pulse Ox 92% ; ttb 16:37 Pulse 64 MON; Resp 18; Temp 96.7(O); Pulse Ox 94% on R/A; Pain 0/10; ttb 13:26 Body Mass Index 25.82 (72.57 kg, 167.64 cm) dsf MDM: 13:25 Elbow, Complete Ordered. EDMS 13:25 CT Head Without Contrast Ordered. EDMS 13:25 Hip,AP,LAT to include Pelvis Ordered. EDMS 13:39 NS 0.9% 1000 ml IV at 100 mL/hr continuous ordered. ke 13:39 Ondansetron 4 mg IVP once ordered. ke 13:40 morphine 2 mg IVP every 15 minutes; Document pain score/vitals after each dose (Hold if ke SBP < 90mmHg) x3 ordered. 13:41 Chest, 1 View Ordered. EDMS 13:41 CBC Ordered. EDMS 13:41 BMP Ordered. EDMS 13:41 Liver Profile Ordered. EDMS 13:41 PT/INR Ordered. EDMS 13:41 ECG WITH READING ER PHYS+CARDIAG ordered. EDMS 13:41 UA Ordered. EDMS 13:42 BED REQUEST+ADM ordered. EDMS 14:01 morphine 2 mg IVP every 15 minutes; Document pain score/vitals after each dose (Hold if ke SBP < 90mmHg) x3 ordered. 14:01 fentaNYL (PF) 25 mcg IVP once ordered. ke 14:54 Financial registration complete. lg 15:24 [facility] [place] Payment Agreement was scanned into [employer] and attached to record. lg 15:26 CONSISTENT CARBOHYDRATES ordered. EDMS 15:26 NPO DIET ordered. EDMS 15:58 Admission / Observation Status ordered. EDLA 09/23 17:54 T-Sheet-- Draft Copy was scanned into [employer] and attached to record. klr Administered Medications: 09/22 14:01 Not Given (Other Intervention Used): morphine 2 mg IVP every 15 minutes; Document pain ke score/vitals after each dose (Hold if SBP < 90mmHg) x3 14:02 Drug: NS 0.9% 1000 ml [sodium chloride 0.9 % intravenous solution] Route: IV; Rate: 100 ttb mL/hr; Site: left hand; 16:09 Follow up: Response: No Adverse Reaction; IV Status: Completed infusion ttb 17:28 Not Given (pain meds not given. no nausea): Ondansetron 4 mg IVP once ttb 17:28 Not Given (Patient Refused; no pain per pt. no distress noted): fentaNYL (PF) 25 mcg ttb IVP once Signatures: Dispatcher [employer] EDLA Tamara Polo, Javier Reg lg Daniel Delarosa, SUPERVISOR SILVERING DEPARTMENT SUPERVISOR SILVERING DEPARTMENT Cyndee Paz RN RN ttb Maria D Hernandez RN RN [facility]ella Sandoval The chart was reviewed and I authenticate all verbal orders and agree with the evaluation and treatment provided.Attachments: 15:24 [facility] Payment Agreement 09/23 17:54 T-Sheet-- Draft Copy klr Chart Complete MTDD
--- NOTE | 2016-09-24 18:33 | EDDOCDS ---
Physician Documentation [facility] Name: Aashish Pickens Age: 85 yrs Sex: Male : 1930 Arrival Date: 09/22/2016 Time: 13:18 Bed Admit Hold Private MD: Haley Ruggiero E Disposition: 09/22/16 14:04 Hospitalization ordered by Suzy Zee for Inpatient Admission. Preliminary diagnosis are Fall on same level from slipping, tripping and stumbling, 2-part displaced fracture of surgical neck of left humerus. - Bed requested for 5 [place]. - Status is Inpatient Admission. ttb - Condition is Stable. - Problem is new. - Symptoms are unchanged. Historical: - Allergies: Talwin (hallucinations); Morphine (Nausea); Claritin-D 12 Hour (urinary retention); caffeine (hypotension/bradycardia); - Home Meds: 1. aspirin 81 mg Oral chew 1 tab once daily (Last dose: 09/22/2016 08:00) 2. atenolol 25 mg Oral tab 1 tab once daily (Last dose: 09/22/2016 08:00) 3. Levemir subcutaneous 10 unit nightly (Last dose: 09/21/2016 20:00) 4. Synthroid 50 mcg Oral tab 1 tab once daily (Last dose: 09/22/2016 08:00) 5. olanzapine 2.5 mg oral tab 1 tabs nightly (Last dose: 09/21/2016 21:00) 6. primidone 100 mg Oral 1 tab twice a day (Last dose: 09/22/2016 08:00) 7. Proscar 5 mg Oral tab 1 tab once daily (Last dose: 09/22/2016 08:00) 8. Zocor 10 mg Oral tab 1 tab nightly (Last dose: 09/21/2016) 9. PreserVision AREDS oral 1 tab daily 10. ropinirole 1 mg oral tab BID (Last dose: 09/22/2016 08:00) 11. Tylenol 325 mg Oral tab 1 tab twice a day (Last dose: 09/22/2016 08:00) - PMHx: CAD; Dementia; Diabetes - IDDM: controlled; Hypercholesterolemia; Hypothyroidism; Parkinson's Disease; - PSHx: Appendectomy; Cholecystectomy; CABG; - Social history: Smoking status: Patient states was never smoker of tobacco. dementia . - Family history: Not pertinent. - : The pt / caregiver states he / she is not on anticoagulants. Home medication list is obtained from family members. - Exposure Risk Screening:: None identified. - History obtained from: . Vital Signs: 09/22 13:26 BP 185 / 82; Pulse 60; Resp 18; Temp 97.6(TE); Pulse Ox 96% on R/A; Weight 72.57 kg / dsf 159.99 lbs (R); Height 5 ft. 6 in. (167.64 cm); 16:01 BP 189 / 81 (auto/); ttb 16:06 Pulse 62 MON; Pulse Ox 95% ; ttb 16:27 BP 186 / 83 (auto/); ttb 16:28 Pulse 68 MON; Pulse Ox 92% ; ttb 16:37 Pulse 64 MON; Resp 18; Temp 96.7(O); Pulse Ox 94% on R/A; Pain 0/10; ttb 13:26 Body Mass Index 25.82 (72.57 kg, 167.64 cm) dsf MDM: 13:25 Elbow, Complete Ordered. EDMS 13:25 CT Head Without Contrast Ordered. EDMS 13:25 Hip,AP,LAT to include Pelvis Ordered. EDMS 13:39 NS 0.9% 1000 ml IV at 100 mL/hr continuous ordered. ke 13:39 Ondansetron 4 mg IVP once ordered. ke 13:40 morphine 2 mg IVP every 15 minutes; Document pain score/vitals after each dose (Hold if ke SBP < 90mmHg) x3 ordered. 13:41 Chest, 1 View Ordered. EDMS 13:41 CBC Ordered. EDMS 13:41 BMP Ordered. EDMS 13:41 Liver Profile Ordered. EDMS 13:41 PT/INR Ordered. EDMS 13:41 ECG WITH READING ER PHYS+CARDIAG ordered. EDMS 13:41 UA Ordered. EDMS 13:42 BED REQUEST+ADM ordered. EDMS 14:01 morphine 2 mg IVP every 15 minutes; Document pain score/vitals after each dose (Hold if ke SBP < 90mmHg) x3 ordered. 14:01 fentaNYL (PF) 25 mcg IVP once ordered. ke 14:54 Financial registration complete. lg 15:24 [facility] [place] Agreement was scanned into [employer] and attached to record. lg 15:26 CONSISTENT CARBOHYDRATES ordered. EDMS 15:26 NPO DIET ordered. EDMS 15:58 Admission / Observation Status ordered. EDCA 09/23 17:54 T-Sheet-- Draft Copy was scanned into [employer] and attached to record. klr Administered Medications: 09/22 14:01 Not Given (Other Intervention Used): morphine 2 mg IVP every 15 minutes; Document pain ke score/vitals after each dose (Hold if SBP < 90mmHg) x3 14:02 Drug: NS 0.9% 1000 ml [sodium chloride 0.9 % intravenous solution] Route: IV; Rate: 100 ttb mL/hr; Site: left hand; 16:09 Follow up: Response: No Adverse Reaction; IV Status: Completed infusion ttb 17:28 Not Given (pain meds not given. no nausea): Ondansetron 4 mg IVP once ttb 17:28 Not Given (Patient Refused; no pain per pt. no distress noted): fentaNYL (PF) 25 mcg ttb IVP once Signatures: Dispatcher [employer] EDCA Tamara Polo, Javier Reg lg Daniel Delarosa, WOOD BOX MAKER WOOD BOX MAKER Cyndee Paz RN RN ttb Maria D Hernandez RN RN [facility] centerDella Sandoval The chart was reviewed and I authenticate all verbal orders and agree with the evaluation and treatment provided.Attachments: 15:24 [facility] Payment Agreement 09/23 17:54 T-Sheet-- Draft Copy klr Chart Complete MTDD
[2016-09-24] MEDS: SIMVASTATIN 10 MG TAB PO SCH (20:08)
[2016-09-24] MEDS: OLANZapine 5 MG TAB PO SCH (20:08)
[2016-09-24 22:00] VITALS: BP 153/69
[2016-09-25] MEDS: LEVOTHYROXINE 0.05 MG TAB (50 MCG) PO SCH (05:33)
[2016-09-25 06:00] VITALS: BP 164/74
[2016-09-25 06:00] LABS: INR 1.25
[2016-09-25 06:04] LABS: BASO % 0.1 % (0.0-1.0); EOS # 0.2 K/mm3 (0.0-0.50); EOS % 3.1 % (0.0-3.0); LARGE UNSTAINED CELL # 0.4 K/mm3 (0.0-0.4); LARGE UNSTAINED CELL % 4.6 % (0.0-4.0); LYMPH # 0.8 K/mm3 (1.5-4.5); LYMPH % 10.5 % (24.0-44.0); MEAN CORPUSCULAR HEMOGLOBIN 33.4 pg (27.0-33.0); MEAN CORPUSCULAR HGB CONC 33.1 g/dl (32.0-36.5); MEAN CORPUSCULAR VOLUME 100.8 fl (80.0-96.0); MONO # 0.6 K/mm3 (0.0-0.8); MONO % 7.8 % (0.0-5.0); NEUTROPHILS # 5.6 K/mm3 (1.8-7.7); NEUTROPHILS % 73.9 % (36.0-66.0); PLATELET COUNT, AUTOMATED 190 k/mm3 (150-450); RED CELL DISTRIBUTION WIDTH 12.5 % (11.5-14.5); WHITE BLOOD COUNT 7.6 K/mm3 (4.0-10.0)
[2016-09-25 06:12] LABS: ALBUMIN 2.6 GM/DL (3.2-5.2); ALKALINE PHOSPHATASE 71 U/L (45-117); ALT/SGPT 22 U/L (12-78); ANION GAP 9 MEQ/L (8-16); AST/SGOT 28 U/L (15-37); BILIRUBIN,TOTAL 0.4 MG/DL (0.2-1.0); BLOOD UREA NITROGEN 41 MG/DL (7-18); CALCIUM LEVEL 8.2 MG/DL (8.8-10.2); CARBON DIOXIDE LEVEL 27 MEQ/L (21-32); CHLORIDE LEVEL 103 MEQ/L (98-107); CREATININE FOR GFR 1.03 MG/DL (0.70-1.30); GLOMERULAR FILTRATION RATE > 60.0 (>35); GLUCOSE, FASTING 167 MG/DL (83-110); MAGNESIUM LEVEL 2.1 MG/DL (1.8-2.4); POTASSIUM SERUM 4.1 MEQ/L (3.5-5.1); SODIUM LEVEL 139 MEQ/L (136-145); TOTAL PROTEIN 6.3 GM/DL (6.4-8.2)
[2016-09-25] MEDS: HumaLOG INSULIN (NovoLOG) PER UNIT SC SCH ×3 (07:30→17:30)
[2016-09-25] MEDS: PRIMIDONE 50 MG TAB PO SCH ×2 (07:56→19:54)
[2016-09-25] MEDS: MIRALAX *UNIT DOSE* 17GM PACKET PO SCH (07:56)
[2016-09-25] MEDS: rOPINIRole 1MG TAB PO SCH ×2 (07:57→19:54)
[2016-09-25] MEDS: FINASTERIDE 5 MG TAB PO SCH (07:58)
[2016-09-25] MEDS: SENOKOT S TAB PO SCH ×2 (07:58→19:53)
[2016-09-25] MEDS: ACETAMINOPHEN TAB 650MG DOSE (2X325MG) PO PRN (07:58)
[2016-09-25] MEDS: ATENOLOL 25 MG TAB PO SCH (07:58)
[2016-09-25] MEDS: MOM 30ML SUSPENSION UDC PO SCH (07:59)
[2016-09-25] MEDS ORDERED: LEVEMIR (INSULIN DETEMIR) 1 UNITS/0.01ML SC SCH ×2 (09:00→21:00)
--- NOTE | 2016-09-25 12:57 | IPNPDOC ---
Text Note Date of Service The patient was seen on 09/25/16. NOTE Subjective: Pt feels well. Denies any complaints. No active bleeding. Objective: Vitals: (see below) General: No acute distress, laying comfortably in bed. HEENT: Moist mucous membranes. Neck: No JVD or lymphadenopathy Cardiac: RRR, No murmurs Pulm: Clear to auscultation b/l. No wheezing, rhonchi Abd: NT/ND + BS Ext: No edema or cyanosis. Distal pulses intact. Left hip surg site with bandage in tact. mild swelling. No bleeding. Labs (see below) Images: CXR 09/22/16 Findings: Mediastinum and cardiac silhouette stable with evidence for prior sternotomy and CABG. Lung ardon demonstrate diffuse chronic interstitial changes as well as scattered calcified pleural plaques. No obvious acute consolidation, effusion, or pneumothorax. Skeletal structures demonstrate osteopenia and degenerative changes without obvious acute fracture. Impression: Chronic changes. No acute cardiopulmonary process. CT Head 09/22/16 IMPRESSION: 1. Small vessel ischemic disease. 2. Moderate volume loss. X ray Left elbow Findings. There is soft tissue swelling over the olecranon and ossific density adjacent to the posterior olecranon at the insertion of the triceps tendon. There is a partial gap between that ossific density and the posterior portion of the olecranon. This suggests avulsion, chronic versus acute. Some focal swelling may reflect acute finding or olecranon bursitis. I do not see any definite joint effusion. There is no supracondylar fracture. 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 The radial head is without a fracture. The coronoid process of the ulna intact. Impression: 1. Soft tissue swelling over the olecranon which may reflect some olecranon bursitis, acute or chronic. There is ossification at the distal course of the triceps near its insertion which appears mildly avulsed, chronic versus acute. Please correlate clinically. 2. Bilateral epicondylitis with some soft tissue calcifications there. No other acute finding. X ray left hip 09/22/16 Impression: Acute left femoral neck fracture. Assessment/Plan 1. Left hip fx - s/p left hip repair 09/23/16. Mechanical fall. No syncope/ seizure like activity. DVT prophy/pain management per ortho. 2. Acute on chronic anemia s/p hip repair - no active bleeding. will transfuse 1U PRBC. Monitor H/H. 2. H/o CAD s/p CABG x 6 per medical records. Not on ASA. On BB. Will need to be back on ASA when he completes coumadin DVT prophy. 3. Dementia 4. Parkinson's dz 5. Hypothyroidism - cont Synthroid 6. HLD- on Statin 7. IDDM- cont levemir/SSI 8. Gait dysfunction with baseline Parkinson's - Physical therapy consult DVT prophy: Per orthopedics Pt is DNR/DNI. VS,Fishbone, I+O VS, Fishbone, I+O Laboratory Tests 09/25/16 05:17 Calcium Level 8.2 L, Aspartate Amino Transf (AST/SGOT) 28, Alanine Aminotransferase (ALT/SGPT) 22, Alkaline Phosphatase 71, Total Bilirubin 0.4, Total Protein 6.3 L, Albumin 2.6 L, Red Blood Count 2.28 L, Mean Corpuscular Volume 100.8 H, Mean Corpuscular Hemoglobin 33.4 H, Mean Corpuscular Hemoglobin Concent 33.1, Red Cell Distribution Width 12.5, Neutrophils (%) (Auto) 73.9 H, Lymphocytes (%) (Auto) 10.5 L, Monocytes (%) (Auto) 7.8 H, Eosinophils (%) (Auto ) 3.1 H, Basophils (%) (Auto) 0.1, Neutrophils # (Auto) 5.6, Lymphocytes # (Auto ) 0.8 L, Monocytes # (Auto) 0.6, Eosinophils # (Auto) 0.2, Basophils # (Auto) 0.0 Vital Signs Date Time Temp Pulse Resp B/P Pulse Ox O2 Delivery O2 Flow Rate FiO2 09/25/16 07:58 74 164/74 09/25/16 06:00 99.2 20 94 Room Air 09/24/16 14:00 0.0 I&O- Last 24 Hours up to 6 AM 09/25/16 06:00 Intake Total 1060 ml Output Total 50 ml Balance 1010 ml TALON RUIZ MD Sep 25, 2016 12:57
[2016-09-25 13:45] VITALS: BP 160/74
[2016-09-25] MEDS ORDERED: WARFARIN SOD 5 MG TAB PO ONE (17:00)
[2016-09-25] MEDS: SIMVASTATIN 10 MG TAB PO SCH (19:53)
[2016-09-25] MEDS: OLANZapine 5 MG TAB PO SCH (19:54)
--- NOTE | 2016-09-25 20:15 | EDDOCDS ---
Nurse's Notes [facility] Name: Aashish Pickens Age: 85 yrs Sex: Male : 1930 Arrival Date: 09/22/2016 Time: 13:18 Bed Admit Hold Private MD: Haley Ruggiero E Diagnosis: Fall on same level from slipping, tripping and stumbling;2-part displaced fracture of surgical neck of left humerus Presentation: 09/22 13:22 Presenting complaint: EMS states: tripped and fell at home onto pavement. Pt c/o left ttb hip pain and has abrasion to left forehead, covered upon arrival. Pt at baseline mentality : with demencia. Adult Sepsis Screening: The patient does not have new or worsening altered mentation. Patient's respiratory rate is less than 22. Systolic blood pressure is greater than 100. Patient has a qSOFA score of 0- Negative Sepsis Screen. Suicide/Homicide risk assessment- Unable to assess. Status: Patient is not a digital service engineer or dependent. Transition of care: patient was not received from another setting of care. 13:22 Acuity: ROXANA Level 3 ttb 13:22 Method Of Arrival: Ambulance ttb Triage Assessment: 13:29 General: Appears in no apparent distress, well nourished, well groomed, Behavior is ttb appropriate for age, at baseline. Pain: Location: left hip. Neurological: Level of Consciousness is awake, alert. Cardiovascular: Heart tones S1 S2 present Chest pain is denied. Respiratory: Airway is patent Respiratory effort is even, unlabored, Respiratory pattern is regular, symmetrical, Denies cough, shortness of breath. GI: Bowel sounds present X 4 quads. Derm: Skin is jaundiced. Derm: abrasion noted to left forehead, left elbow, left knee. Musculoskeletal: Range of motion intact in all extremities. No deformity noted Reports pain in left leg. Historical: - Allergies: Talwin (hallucinations); Morphine (Nausea); Claritin-D 12 Hour (urinary retention); caffeine (hypotension/bradycardia); - Home Meds: 1. aspirin 81 mg Oral chew 1 tab once daily (Last dose: 09/22/2016 08:00) 2. atenolol 25 mg Oral tab 1 tab once daily (Last dose: 09/22/2016 08:00) 3. Levemir subcutaneous 10 unit nightly (Last dose: 09/21/2016 20:00) 4. Synthroid 50 mcg Oral tab 1 tab once daily (Last dose: 09/22/2016 08:00) 5. olanzapine 2.5 mg oral tab 1 tabs nightly (Last dose: 09/21/2016 21:00) 6. primidone 100 mg Oral 1 tab twice a day (Last dose: 09/22/2016 08:00) 7. Proscar 5 mg Oral tab 1 tab once daily (Last dose: 09/22/2016 08:00) 8. Zocor 10 mg Oral tab 1 tab nightly (Last dose: 09/21/2016) 9. PreserVision AREDS oral 1 tab daily 10. ropinirole 1 mg oral tab BID (Last dose: 09/22/2016 08:00) 11. Tylenol 325 mg Oral tab 1 tab twice a day (Last dose: 09/22/2016 08:00) - PMHx: CAD; Dementia; Diabetes - IDDM: controlled; Hypercholesterolemia; Hypothyroidism; Parkinson's Disease; - PSHx: Appendectomy; Cholecystectomy; CABG; - Social history: Smoking status: Patient states was never smoker of tobacco. dementia . - Family history: Not pertinent. - : The pt / caregiver states he / she is not on anticoagulants. Home medication list is obtained from family members. - Exposure Risk Screening:: None identified. - History obtained from: . Screenin:31 Screening information is obtained from the patient. Fall risk: At risk due to age, ttb apparent cognitive impairment, gait disturbance, immobility, injury, prior history of falls, The following interventions are performed due to a positive Fall Risk Screen: Fall Risk is added to Special Handling on the patient Summary Screen. A Fall Risk Bracelet was applied to the patient. Side Rails are placed in the up position. A Call Jarrett is given with instruction to call for help when getting out of bed. Assistance ADL's: Requires assistance with meal preparation, this assistance is provided by bathing, assistance is provided by dressing, assistance is provided by toileting, assistance is provided by ambulation, assistance is provided by housework, assistance is provided by medication administration, assistance is provided by family members. Abuse/DV Screen: The patient / caregiver reports he/she is: pt cannot be assessed for living situation at this time. Nutritional screening: No deficits noted. 16:10 Advance Directives: There is an active Power of Automobiles Salesperson, wfe. home support is adequate.ttb Assessment: 13:31 General: see triage assessment. here at bedside. Pt in CT.. ttb 14:20 Reassessment: Patient appears in no apparent distress at this time. pt resting on ttb stretcher. at bedside. Labs drawn per orders. NAD noted. Pain meds not needed at this time but will monitor. . Neurological: Level of Consciousness is awake, alert. Respiratory: Airway is patent Respiratory effort is even, unlabored. Derm: Skin is jaundiced. 14:43 General: hospitalist in with pt at this time. Pt remains awake and alert, comfortable ttb on stretcher.. 15:00 General: concerned with discharge after surgery. She is worried she will not be ttb able to adequately take care of pt.....she was encouraged to speak with cyber intel planner and PSA while in hospital for safe discharge.. 15:45 Reassessment: Patient appears in no apparent distress at this time. pt resting on ttb stretcher. NAD noted. Awaiting admission to floor.. 16:50 Reassessment: Patient appears in no apparent distress at this time. SBAR sent to floor. ttb Marco A Quintero to receive pt. Pt dislodged own IV. Confused. Resting on stretcher. Tolerated gingerale well. No diff swallowing. . 17:29 General: IV started . pt resting on stretcher. NAD noted. Report given to floor and is ttb ready to accept pt at this time.. Vital Signs: 13:26 BP 185 / 82; Pulse 60; Resp 18; Temp 97.6(TE); Pulse Ox 96% on R/A; Weight 72.57 kg dsf (R); Height 5 ft. 6 in. (167.64 cm); 16:01 BP 189 / 81 (auto/); ttb 16:06 Pulse 62 MON; Pulse Ox 95% ; ttb 16:27 BP 186 / 83 (auto/); ttb 16:28 Pulse 68 MON; Pulse Ox 92% ; ttb 16:37 Pulse 64 MON; Resp 18; Temp 96.7(O); Pulse Ox 94% on R/A; Pain 0/10; ttb 13:26 Body Mass Index 25.82 (72.57 kg, 167.64 cm) dsf Vitals: 13:26 Log In Time N/A - ambulance arrival. dsf ED Course: 13:19 Patient visited by Marlene Moran. cmb 13:19 Haley Ruggiero is Private Physician. cmb 13:19 [facility]. ke 13:19 Patient moved to Waiting cmb 13:19 Patient moved to 6 cmb 13:20 Patient visited by Daniel Delarosa FNP. ke 13:20 Patient visited by Daniel Delarosa FNP. ke 13:23 Triage Initiated ttb 13:31 The patient / caregiver is instructed regarding the plan of care and ED course. ttb Accompanied by Family Member, Patient has correct armband on for positive identification. Placed in gown. Bed in low position. Call light in reach. Side rails up X2. 13:31 Maintain field IV. Dressing intact. Good blood return noted. Site clean & dry. Gauge & ttb site: 20LH. 13:32 Patient visited by Cyndee Moreno RN. ttb 13:42 Patient visited by Cyndee Moreno RN. ttb 14:02 CBC Sent. ttb 14:02 BMP Sent. ttb 14:02 Liver Profile Sent. ttb 14:02 PT/INR Sent. ttb 14:04 Suzy Zee is Hospitalizing Provider. ke 14:06 EKG done. (by ED staff). Reviewed by Daniel LIZARRAGA. cmb 14:16 Patient visited by Marlene Moran. cmb 14:20 Patient visited by Cyndee Moreno RN. ttb 14:48 Hip,AP,LAT to include Pelvis Returned. EDMS 14:48 Chest, 1 View Returned. EDMS 15:24 [facility] [place] was scanned into [employer] and attached to record. lg 15:40 CT Head Without Contrast Returned. EDMS 16:09 Patient visited by Cyndee Moreno RN. ttb 16:13 Patient visited by Cyndee Moreno RN. ttb 16:21 Patient moved to Admit Hold kpj 16:33 Elbow, Complete Returned. EDMS 16:43 Discontinued IV lock intact, bleeding controlled, pressure dressing applied, No ttb redness/swelling at site. pt dislodged by accident. 16:44 No procedures done that require assistance. ttb 16:51 Patient visited by Cyndee Moreno RN. ttb 17:25 Inserted peripheral IV: 20gauge IV in left forearm Patient tolerated the procedure well.ttb 09/23 17:54 T-Sheet-- Draft Copy was scanned into [employer] and attached to record. klr Administered Medications: 09/22 14:01 Not Given (Other Intervention Used): morphine 2 mg IVP every 15 minutes; Document pain ke score/vitals after each dose (Hold if SBP < 90mmHg) x3 14:02 Drug: NS 0.9% 1000 ml [sodium chloride 0.9 % intravenous solution] Route: IV; Rate: 100 ttb mL/hr; Site: left hand; 16:09 Follow up: Response: No Adverse Reaction; IV Status: Completed infusion ttb 17:28 Not Given (pain meds not given. no nausea): Ondansetron 4 mg IVP once ttb 17:28 Not Given (Patient Refused; no pain per pt. no distress noted): fentaNYL (PF) 25 mcg ttb IVP once Order Results: Lab Order: CBC; SPEC'M 09/22/16 14:00 Test: WHITE BLOOD COUNT; Value: 5.7; Range: 4.0-10.0; Units: K/mm3; Status: F Test: RED BLOOD COUNT; Value: 2.92; Range: 4.30-6.10; Abnormal: Below low normal; Units: M/mm3; Status: F Test: HEMOGLOBIN; Value: 10.1; Range: 14.0-18.0; Abnormal: Below low normal; Units: g/dl; Status: F Test: HEMATOCRIT; Value: 29.3; Range: 42.0-52.0; Abnormal: Below low normal; Units: %; Status: F Test: MEAN CORPUSCULAR VOLUME; Value: 100.5; Range: 80.0-96.0; Abnormal: Above high normal; Units: fl; Status: F Test: MEAN CORPUSCULAR HEMOGLOBIN; Value: 34.6; Range: 27.0-33.0; Abnormal: Above high normal; Units: pg; Status: F Test: MEAN CORPUSCULAR HGB CONC; Value: 34.4; Range: 32.0-36.5; Units: g/dl; Status: F Test: RED CELL DISTRIBUTION WIDTH; Value: 12.2; Range: 11.5-14.5; Units: %; Status: F Test: PLATELET COUNT, AUTOMATED; Value: 227; Range: 150-450; Units: k/mm3; Status: F Lab Order: BMP; SPEC'09/22/16 14:00 Test: GLUCOSE, FASTING; Value: 254; Range: 83-110; Abnormal: Above high normal; Units: MG/DL; Status: F Test: BLOOD UREA NITROGEN; Value: 42; Range: 7-18; Abnormal: Above high normal; Units: MG/DL; Status: F Test: CREATININE FOR GFR; Value: 1.21; Range: 0.70-1.30; Units: MG/DL; Status: F Test: GLOMERULAR FILTRATION RATE; Value: > 60.0; Range: >35; Status: F Test: SODIUM LEVEL; Value: 134; Range: 136-145; Abnormal: Below low normal; Units: MEQ/L; Status: F Test: POTASSIUM SERUM; Value: 5.1; Range: 3.5-5.1; Units: MEQ/L; Status: F Test: CHLORIDE LEVEL; Value: 100; Range: 98-107; Units: MEQ/L; Status: F Test: CARBON DIOXIDE LEVEL; Value: 26; Range: 21-32; Units: MEQ/L; Status: F Test: ANION GAP; Value: 8; Range: 8-16; Units: MEQ/L; Status: F Test: CALCIUM LEVEL; Value: 8.0; Range: 8.8-10.2; Abnormal: Below low normal; Units: MG/DL; Status: F Test Note: ; Units are mL/min/1.73 m2 Chronic Kidney Disease Staging per NKF: Stage I & II GFR >=60 Normal to Mildly Decreased Stage III GFR 30-59 Moderately Decreased Stage IV GFR 15-29 Severely Decreased Stage V GFR <15 Very Little GFR Left ESRD GFR <15 on VALUE STREAM MANAGER Lab Order: Liver Profile; SPEC'09/22/16 14:00 Test: AST/SGOT; Value: 44; Range: 15-37; Abnormal: Above high normal; Units: U/L; Status: F Test: ALT/SGPT; Value: 77; Range: 12-78; Units: U/L; Status: F Test: ALKALINE PHOSPHATASE; Value: 96; Range: 45-117; Units: U/L; Status: F Test: BILIRUBIN,TOTAL; Value: 0.3; Range: 0.2-1.0; Units: MG/DL; Status: F Test: BILIRUBIN,DIRECT; Value: < 0.1; Range: 0.0-0.2; Units: MG/DL; Status: F Test: TOTAL PROTEIN; Value: 7.0; Range: 6.4-8.2; Units: GM/DL; Status: F Test: ALBUMIN; Value: 3.2; Range: 3.2-5.2; Units: GM/DL; Status: F Test: ALBUMIN/GLOBULIN RATIO; Value: 0.84; Range: 1.00-1.93; Abnormal: Below low normal; Status: F Lab Order: PT/INR; SPEC'M 09/22/16 14:00 Test: PROTHROMBIN TIME; Value: 12.7; Range: 12.3-14.5; Units: SECONDS; Status: F Test: INR; Value: 0.94; Status: F Test Note: ; THERAPUTIC HUMAN INR VALUES INDICATIONS NORMAL RANGES PROPHYLAXIS/TREATMENT OF: VENOUS THROMBOSIS 2.0-3.0 PULMONARY EMBOLISM 2.0-3.0 PREVENTION OF SYSTEMIC EMBOLISM FROM: TISSUE HEART VALVES 2.0-3.0 ACUTE MYOCARDIAL INFARCTION 2.0-3.0 VALVULAR HEART DISEASE 2.0-3.0 ATRIAL FIBRILLATION 2.0-3.0 MECHANICAL VALVES(HIGH RISK) 2.5-3.5 RECURRENT MYOCARDIAL INFARCTION 2.5-3.5 Radiology Order: CT Head Without Contrast Test: CT Head Without Contrast REASON FOR EXAMINATION: Trauma; CT HEAD WITHOUT CONTRAST:; ; HISTORY: Trauma.; ; COMPARISON: 12/08/2012; ; Areas of decreased attenuation are present in the periventricular white matter.; This represents small vessel ischemic disease. There is no intraparenchymal; hemorrhage, mass or midline shift. The ventricular system and cortical sulci are; dilated consistent with moderate volume loss. There is no extracerebral; collection. There is no fracture. The visualized sinuses are clear.; ; IMPRESSION:; ; 1. Small vessel ischemic disease.; ; 2. Moderate volume loss.; ; ; Signed by; Prosper Chinchilla MD 09/22/2016 03:35 P; Radiology Order: Elbow, Complete Test: Elbow, Complete REASON FOR EXAMINATION: Trauma; Left elbow: 09/22/2016; ; Clinical history: Trauma.; ; Five views are provided including angled oblique lateral.; ; There are no prior pertinent studies.; ; Findings. There is soft tissue swelling over the olecranon and ossific density; adjacent to the posterior olecranon at the insertion of the triceps tendon.; There is a partial gap between that ossific density and the posterior portion of; the olecranon. This suggests avulsion, chronic versus acute. Some focal swelling; may reflect acute finding or olecranon bursitis. I do not see any definite joint; effusion. There is no supracondylar fracture. Small amount of soft tissue; calcification adjacent to the medial epicondyle as well as the lateral condyle; representing some chronic epicondylitis with calcifications at the; ligamentous/tendinous insertions. The radial head is without a fracture. The; coronoid process of the ulna intact.; ; Impression:; 1. Soft tissue swelling over the olecranon which may reflect some olecranon; bursitis, acute or chronic. There is ossification at the distal course of the; triceps near its insertion which appears mildly avulsed, chronic versus acute.; Please correlate clinically.; 2. Bilateral epicondylitis with some soft tissue calcifications there. No other; acute finding.; ; ; ; ; Unreviewed; Radiology Order: Hip,AP,LAT to include Pelvis Test: Hip,AP,LAT to include Pelvis REASON FOR EXAMINATION: Trauma; Clinical: Trauma.; ; Technique: AP view of the pelvis with neutral and frog lateral views of the left; hip.; ; Findings:; There is an acute fracture through the left femoral neck. Underlying diffuse; degenerative changes to the visualized lumbosacral spine, pelvis and hips noted.; ; Impression:; Acute left femoral neck fracture.; ; ; Signed by; Marvin Miller MD 09/22/2016 02:18 P; Radiology Order: Chest, 1 View Test: Chest, 1 View REASON FOR EXAMINATION: Trauma; Clinical: Trauma.; ; Technique: Single supine AP view of the chest.; ; Comparison: 01/27/2016.; ; Findings:; Mediastinum and cardiac silhouette stable with evidence for prior sternotomy and; CABG. Lung ardon demonstrate diffuse chronic interstitial changes as well as; scattered calcified pleural plaques. No obvious acute consolidation, effusion,; or pneumothorax. Skeletal structures demonstrate osteopenia and degenerative; changes without obvious acute fracture.; ; Impression:; Chronic changes. No acute cardiopulmonary process.; ; ; Signed by; Marvin Miller MD 09/22/2016 02:19 P; Outcome: 13:32 CT Study completed. ttb 14:04 Decision to Hospitalize by Provider. ke 16:43 Discharge Assessment: Patient awake and alert. patient administered narcotics - no. ttb 17:25 Property given to family member, jeans, belt, shoes taken home by . ttb 17:29 The following High Risk Discharge criteria are identified: Yes, pt transferred to ttb floor.. Admitted to Med/Surg accompanied by tech, via stretcher, with chart. Condition: stable. Admission hand-off: Report called to MARCO A Quintero receiving pt. SBAR received. 17:31 Patient left the ED. ttb Signatures: Dispatcher [employer] EDMS Dilcia Fischer, RN RN Tamara Fernandez, Reg Reg lg Daniel Delarosa, MAIL CARRIER AND CLERK MAIL CARRIER AND CLERKIfeoma Johnson,RN RN Marlene Bro Teresa, RN RN Della Baugh Chart Complete MTDD
--- NOTE | 2016-09-25 20:15 | EDDOCDS ---
Physician Documentation [facility] Name: Aashish Pickens Age: 85 yrs Sex: Male : 1930 Arrival Date: 09/22/2016 Time: 13:18 Bed Admit Hold Private MD: Haley Ruggiero E Disposition: 09/22/16 14:04 Hospitalization ordered by Suzy Zee for Inpatient Admission. Preliminary diagnosis are Fall on same level from slipping, tripping and stumbling, 2-part displaced fracture of surgical neck of left humerus. - Bed requested for 5 [place]. - Status is Inpatient Admission. ttb - Condition is Stable. - Problem is new. - Symptoms are unchanged. Historical: - Allergies: Talwin (hallucinations); Morphine (Nausea); Claritin-D 12 Hour (urinary retention); caffeine (hypotension/bradycardia); - Home Meds: 1. aspirin 81 mg Oral chew 1 tab once daily (Last dose: 09/22/2016 08:00) 2. atenolol 25 mg Oral tab 1 tab once daily (Last dose: 09/22/2016 08:00) 3. Levemir subcutaneous 10 unit nightly (Last dose: 09/21/2016 20:00) 4. Synthroid 50 mcg Oral tab 1 tab once daily (Last dose: 09/22/2016 08:00) 5. olanzapine 2.5 mg oral tab 1 tabs nightly (Last dose: 09/21/2016 21:00) 6. primidone 100 mg Oral 1 tab twice a day (Last dose: 09/22/2016 08:00) 7. Proscar 5 mg Oral tab 1 tab once daily (Last dose: 09/22/2016 08:00) 8. Zocor 10 mg Oral tab 1 tab nightly (Last dose: 09/21/2016) 9. PreserVision AREDS oral 1 tab daily 10. ropinirole 1 mg oral tab BID (Last dose: 09/22/2016 08:00) 11. Tylenol 325 mg Oral tab 1 tab twice a day (Last dose: 09/22/2016 08:00) - PMHx: CAD; Dementia; Diabetes - IDDM: controlled; Hypercholesterolemia; Hypothyroidism; Parkinson's Disease; - PSHx: Appendectomy; Cholecystectomy; CABG; - Social history: Smoking status: Patient states was never smoker of tobacco. dementia . - Family history: Not pertinent. - : The pt / caregiver states he / she is not on anticoagulants. Home medication list is obtained from family members. - Exposure Risk Screening:: None identified. - History obtained from: . Vital Signs: 09/22 13:26 BP 185 / 82; Pulse 60; Resp 18; Temp 97.6(TE); Pulse Ox 96% on R/A; Weight 72.57 kg / dsf 159.99 lbs (R); Height 5 ft. 6 in. (167.64 cm); 16:01 BP 189 / 81 (auto/); ttb 16:06 Pulse 62 MON; Pulse Ox 95% ; ttb 16:27 BP 186 / 83 (auto/); ttb 16:28 Pulse 68 MON; Pulse Ox 92% ; ttb 16:37 Pulse 64 MON; Resp 18; Temp 96.7(O); Pulse Ox 94% on R/A; Pain 0/10; ttb 13:26 Body Mass Index 25.82 (72.57 kg, 167.64 cm) dsf MDM: 13:25 Elbow, Complete Ordered. EDMS 13:25 CT Head Without Contrast Ordered. EDMS 13:25 Hip,AP,LAT to include Pelvis Ordered. EDMS 13:39 NS 0.9% 1000 ml IV at 100 mL/hr continuous ordered. ke 13:39 Ondansetron 4 mg IVP once ordered. ke 13:40 morphine 2 mg IVP every 15 minutes; Document pain score/vitals after each dose (Hold if ke SBP < 90mmHg) x3 ordered. 13:41 Chest, 1 View Ordered. EDMS 13:41 CBC Ordered. EDMS 13:41 BMP Ordered. EDMS 13:41 Liver Profile Ordered. EDMS 13:41 PT/INR Ordered. EDMS 13:41 ECG WITH READING ER PHYS+CARDIAG ordered. EDMS 13:41 UA Ordered. EDMS 13:42 BED REQUEST+ADM ordered. EDMS 14:01 morphine 2 mg IVP every 15 minutes; Document pain score/vitals after each dose (Hold if ke SBP < 90mmHg) x3 ordered. 14:01 fentaNYL (PF) 25 mcg IVP once ordered. ke 14:54 Financial registration complete. lg 15:24 [facility] [place] was scanned into [employer] and attached to record. lg 15:26 CONSISTENT CARBOHYDRATES ordered. EDMS 15:26 NPO DIET ordered. EDMS 15:58 Admission / Observation Status ordered. EDLA 09/23 17:54 T-Sheet-- Draft Copy was scanned into [employer] and attached to record. klr Administered Medications: 09/22 14:01 Not Given (Other Intervention Used): morphine 2 mg IVP every 15 minutes; Document pain ke score/vitals after each dose (Hold if SBP < 90mmHg) x3 14:02 Drug: NS 0.9% 1000 ml [sodium chloride 0.9 % intravenous solution] Route: IV; Rate: 100 ttb mL/hr; Site: left hand; 16:09 Follow up: Response: No Adverse Reaction; IV Status: Completed infusion ttb 17:28 Not Given (pain meds not given. no nausea): Ondansetron 4 mg IVP once ttb 17:28 Not Given (Patient Refused; no pain per pt. no distress noted): fentaNYL (PF) 25 mcg ttb IVP once Signatures: Dispatcher [employer] EDLA Tamara Polo, Javier Reg lg Daniel Delarosa, PHYSICS PROFESSOR PHYSICS PROFESSOR Cyndee Paz RN RN ttb Maria D Hernandez RN RN [facility] hospitalDella Sandoval The chart was reviewed and I authenticate all verbal orders and agree with the evaluation and treatment provided.Attachments: 15:24 [facility] Payment Agreement 09/23 17:54 T-Sheet-- Draft Copy klr Chart Complete MTDD
--- NOTE | 2016-09-25 20:15 | EDDOCDS ---
Physician Documentation [facility] Name: Aashish Pickens Age: 85 yrs Sex: Male : 1930 Arrival Date: 09/22/2016 Time: 13:18 Bed Admit Hold Private MD: Haley Ruggiero E Disposition: 09/22/16 14:04 Hospitalization ordered by Suzy Zee for Inpatient Admission. Preliminary diagnosis are Fall on same level from slipping, tripping and stumbling, 2-part displaced fracture of surgical neck of left humerus. - Bed requested for 5 [place]. - Status is Inpatient Admission. ttb - Condition is Stable. - Problem is new. - Symptoms are unchanged. Historical: - Allergies: Talwin (hallucinations); Morphine (Nausea); Claritin-D 12 Hour (urinary retention); caffeine (hypotension/bradycardia); - Home Meds: 1. aspirin 81 mg Oral chew 1 tab once daily (Last dose: 09/22/2016 08:00) 2. atenolol 25 mg Oral tab 1 tab once daily (Last dose: 09/22/2016 08:00) 3. Levemir subcutaneous 10 unit nightly (Last dose: 09/21/2016 20:00) 4. Synthroid 50 mcg Oral tab 1 tab once daily (Last dose: 09/22/2016 08:00) 5. olanzapine 2.5 mg oral tab 1 tabs nightly (Last dose: 09/21/2016 21:00) 6. primidone 100 mg Oral 1 tab twice a day (Last dose: 09/22/2016 08:00) 7. Proscar 5 mg Oral tab 1 tab once daily (Last dose: 09/22/2016 08:00) 8. Zocor 10 mg Oral tab 1 tab nightly (Last dose: 09/21/2016) 9. PreserVision AREDS oral 1 tab daily 10. ropinirole 1 mg oral tab BID (Last dose: 09/22/2016 08:00) 11. Tylenol 325 mg Oral tab 1 tab twice a day (Last dose: 09/22/2016 08:00) - PMHx: CAD; Dementia; Diabetes - IDDM: controlled; Hypercholesterolemia; Hypothyroidism; Parkinson's Disease; - PSHx: Appendectomy; Cholecystectomy; CABG; - Social history: Smoking status: Patient states was never smoker of tobacco. dementia . - Family history: Not pertinent. - : The pt / caregiver states he / she is not on anticoagulants. Home medication list is obtained from family members. - Exposure Risk Screening:: None identified. - History obtained from: . Vital Signs: 09/22 13:26 BP 185 / 82; Pulse 60; Resp 18; Temp 97.6(TE); Pulse Ox 96% on R/A; Weight 72.57 kg / dsf 159.99 lbs (R); Height 5 ft. 6 in. (167.64 cm); 16:01 BP 189 / 81 (auto/); ttb 16:06 Pulse 62 MON; Pulse Ox 95% ; ttb 16:27 BP 186 / 83 (auto/); ttb 16:28 Pulse 68 MON; Pulse Ox 92% ; ttb 16:37 Pulse 64 MON; Resp 18; Temp 96.7(O); Pulse Ox 94% on R/A; Pain 0/10; ttb 13:26 Body Mass Index 25.82 (72.57 kg, 167.64 cm) dsf MDM: 13:25 Elbow, Complete Ordered. EDMS 13:25 CT Head Without Contrast Ordered. EDMS 13:25 Hip,AP,LAT to include Pelvis Ordered. EDMS 13:39 NS 0.9% 1000 ml IV at 100 mL/hr continuous ordered. ke 13:39 Ondansetron 4 mg IVP once ordered. ke 13:40 morphine 2 mg IVP every 15 minutes; Document pain score/vitals after each dose (Hold if ke SBP < 90mmHg) x3 ordered. 13:41 Chest, 1 View Ordered. EDMS 13:41 CBC Ordered. EDMS 13:41 BMP Ordered. EDMS 13:41 Liver Profile Ordered. EDMS 13:41 PT/INR Ordered. EDMS 13:41 ECG WITH READING ER PHYS+CARDIAG ordered. EDMS 13:41 UA Ordered. EDMS 13:42 BED REQUEST+ADM ordered. EDMS 14:01 morphine 2 mg IVP every 15 minutes; Document pain score/vitals after each dose (Hold if ke SBP < 90mmHg) x3 ordered. 14:01 fentaNYL (PF) 25 mcg IVP once ordered. ke 14:54 Financial registration complete. lg 15:24 [facility] [place] Payment Agreement was scanned into [employer] and attached to record. lg 15:26 CONSISTENT CARBOHYDRATES ordered. EDMS 15:26 NPO DIET ordered. EDMS 15:58 Admission / Observation Status ordered. EDRI 09/23 17:54 T-Sheet-- Draft Copy was scanned into [employer] and attached to record. klr Administered Medications: 09/22 14:01 Not Given (Other Intervention Used): morphine 2 mg IVP every 15 minutes; Document pain ke score/vitals after each dose (Hold if SBP < 90mmHg) x3 14:02 Drug: NS 0.9% 1000 ml [sodium chloride 0.9 % intravenous solution] Route: IV; Rate: 100 ttb mL/hr; Site: left hand; 16:09 Follow up: Response: No Adverse Reaction; IV Status: Completed infusion ttb 17:28 Not Given (pain meds not given. no nausea): Ondansetron 4 mg IVP once ttb 17:28 Not Given (Patient Refused; no pain per pt. no distress noted): fentaNYL (PF) 25 mcg ttb IVP once Signatures: Dispatcher [employer] EDRI Tamara Polo, Javier Reg lg Daniel Delarosa, SNOW RANGER SNOW RANGER Cyndee Paz RN RN ttb Maria D Hernandez RN RN [facility] hospitalDella Sandoval The chart was reviewed and I authenticate all verbal orders and agree with the evaluation and treatment provided.Attachments: 15:24 [facility] Payment Agreement 09/23 17:54 T-Sheet-- Draft Copy klr Chart Complete MTDD
[2016-09-25 22:00] VITALS: BP 140/63
[2016-09-26] MEDS: LEVOTHYROXINE 0.05 MG TAB (50 MCG) PO SCH (05:31)
[2016-09-26 05:43] LABS: BASO % 0.2 % (0.0-1.0); EOS # 0.2 K/mm3 (0.0-0.50); LARGE UNSTAINED CELL # 0.4 K/mm3 (0.0-0.4); LARGE UNSTAINED CELL % 5.6 % (0.0-4.0); LYMPH # 0.9 K/mm3 (1.5-4.5); LYMPH % 12.1 % (24.0-44.0); MEAN CORPUSCULAR HEMOGLOBIN 32.8 pg (27.0-33.0); MEAN CORPUSCULAR HGB CONC 33.8 g/dl (32.0-36.5); MEAN CORPUSCULAR VOLUME 97.1 fl (80.0-96.0); MONO # 0.6 K/mm3 (0.0-0.8); NEUTROPHILS # 5.1 K/mm3 (1.8-7.7); PLATELET COUNT, AUTOMATED 190 k/mm3 (150-450); RED CELL DISTRIBUTION WIDTH 15.7 % (11.5-14.5); WHITE BLOOD COUNT 7.1 K/mm3 (4.0-10.0)
[2016-09-26 05:54] LABS: INR 1.37
[2016-09-26 05:58] LABS: ALBUMIN 2.4 GM/DL (3.2-5.2); ALKALINE PHOSPHATASE 67 U/L (45-117); ALT/SGPT 27 U/L (12-78); ANION GAP 8 MEQ/L (8-16); AST/SGOT 39 U/L (15-37); BILIRUBIN,TOTAL 0.4 MG/DL (0.2-1.0); BLOOD UREA NITROGEN 37 MG/DL (7-18); CALCIUM LEVEL 8.1 MG/DL (8.8-10.2); CARBON DIOXIDE LEVEL 28 MEQ/L (21-32); CHLORIDE LEVEL 105 MEQ/L (98-107); CREATININE FOR GFR 0.91 MG/DL (0.70-1.30); GLOMERULAR FILTRATION RATE > 60.0 (>35); GLUCOSE, FASTING 45 MG/DL (83-110); MAGNESIUM LEVEL 2.1 MG/DL (1.8-2.4); POTASSIUM SERUM 3.5 MEQ/L (3.5-5.1); SODIUM LEVEL 141 MEQ/L (136-145); TOTAL PROTEIN 6.4 GM/DL (6.4-8.2)
[2016-09-26 06:00] VITALS: BP 150/79
[2016-09-26] MEDS: HumaLOG INSULIN (NovoLOG) PER UNIT SC SCH ×3 (07:30→17:30)
[2016-09-26] MEDS: PRIMIDONE 50 MG TAB PO SCH ×2 (09:00→21:06)
[2016-09-26] MEDS: MOM 30ML SUSPENSION UDC PO SCH (09:00)
[2016-09-26] MEDS: MIRALAX *UNIT DOSE* 17GM PACKET PO SCH (09:00)
[2016-09-26] MEDS: rOPINIRole 1MG TAB PO SCH ×2 (09:17→21:05)
[2016-09-26] MEDS: FINASTERIDE 5 MG TAB PO SCH (09:17)
[2016-09-26] MEDS: SENOKOT S TAB PO SCH ×2 (09:17→21:05)
[2016-09-26] MEDS: ATENOLOL 25 MG TAB PO SCH (09:18)
--- NOTE | 2016-09-26 13:50 | IPNPDOC ---
Text Note Date of Service The patient was seen on 09/26/16. NOTE Subjective: Pt feels well. Denies any complaints. No active bleeding. Objective: Vitals: (see below) General: No acute distress, laying comfortably in bed. HEENT: Moist mucous membranes. Neck: No JVD or lymphadenopathy Cardiac: RRR, No murmurs Pulm: Clear to auscultation b/l. No wheezing, rhonchi Abd: NT/ND + BS Ext: No edema or cyanosis. Distal pulses intact. Left hip surg site with bandage in tact. mild swelling. No bleeding. Labs (see below) Images: CXR 09/22/16 Findings: Mediastinum and cardiac silhouette stable with evidence for prior sternotomy and CABG. Lung ardon demonstrate diffuse chronic interstitial changes as well as scattered calcified pleural plaques. No obvious acute consolidation, effusion, or pneumothorax. Skeletal structures demonstrate osteopenia and degenerative changes without obvious acute fracture. Impression: Chronic changes. No acute cardiopulmonary process. CT Head 09/22/16 IMPRESSION: 1. Small vessel ischemic disease. 2. Moderate volume loss. X ray Left elbow Findings. There is soft tissue swelling over the olecranon and ossific density adjacent to the posterior olecranon at the insertion of the triceps tendon. There is a partial gap between that ossific density and the posterior portion of the olecranon. This suggests avulsion, chronic versus acute. Some focal swelling may reflect acute finding or olecranon bursitis. I do not see any definite joint effusion. There is no supracondylar fracture. 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 The radial head is without a fracture. The coronoid process of the ulna intact. Impression: 1. Soft tissue swelling over the olecranon which may reflect some olecranon bursitis, acute or chronic. There is ossification at the distal course of the triceps near its insertion which appears mildly avulsed, chronic versus acute. Please correlate clinically. 2. Bilateral epicondylitis with some soft tissue calcifications there. No other acute finding. X ray left hip 09/22/16 Impression: Acute left femoral neck fracture. Assessment/Plan 1. Left hip fx - s/p left hip repair 09/23/16. Mechanical fall. No syncope/ seizure like activity. DVT prophy/pain management per ortho. 2. Acute on chronic anemia s/p hip repair - no active bleeding. S/p 1U PRBC. Monitor H/H. 2. H/o CAD s/p CABG x 6 per medical records. Not on ASA. On BB. Will need to be back on ASA when he completes coumadin DVT prophy. 3. Dementia 4. Parkinson's dz 5. Hypothyroidism - cont Synthroid 6. HLD- on Statin 7. IDDM- cont levemir/SSI; decrease levemir dose to 5U, as pt was hypoglycemic in the am 8. Gait dysfunction with baseline Parkinson's - Physical therapy consult DVT prophy: Per orthopedics Pt is DNR/DNI. VS,Fishbone, I+O VS, Fishbone, I+O Laboratory Tests 09/26/16 05:20 Calcium Level 8.1 L, Aspartate Amino Transf (AST/SGOT) 39 H, Alanine Aminotransferase (ALT/SGPT) 27, Alkaline Phosphatase 67, Total Bilirubin 0.4, Total Protein 6.4, Albumin 2.4 L, Red Blood Count 2.49 L, Mean Corpuscular Volume 97.1 H, Mean Corpuscular Hemoglobin 32.8, Mean Corpuscular Hemoglobin Concent 33.8, Red Cell Distribution Width 15.7 H, Neutrophils (%) (Auto) 71.0 H , Lymphocytes (%) (Auto) 12.1 L, Monocytes (%) (Auto) 8.0 H, Eosinophils (%) ( Auto) 3.0, Basophils (%) (Auto) 0.2, Neutrophils # (Auto) 5.1, Lymphocytes # ( Auto) 0.9 L, Monocytes # (Auto) 0.6, Eosinophils # (Auto) 0.2, Basophils # (Auto ) 0.0 Vital Signs Date Time Temp Pulse Resp B/P Pulse Ox O2 Delivery O2 Flow Rate FiO2 09/26/16 09:18 65 150/79 09/26/16 06:00 99.7 20 93 Room Air 09/24/16 14:00 0.0 I&O- Last 24 Hours up to 6 AM 09/26/16 06:00 Intake Total 799 ml Balance 799 ml TALON RUIZ MD Sep 26, 2016 13:50
[2016-09-26 14:00] VITALS: BP 160/72
[2016-09-26] MEDS ORDERED: WARFARIN SOD 3 MG TAB PO ONE (17:00)
[2016-09-26] MEDS: ACETAMINOPHEN TAB 650MG DOSE (2X325MG) PO PRN (17:35)
[2016-09-26] MEDS: LEVEMIR (INSULIN DETEMIR) 1 UNITS/0.01ML SC SCH (21:04)
[2016-09-26] MEDS: OLANZapine 5 MG TAB PO SCH (21:05)
[2016-09-26] MEDS: SIMVASTATIN 10 MG TAB PO SCH (21:06)
[2016-09-26 22:00] VITALS: BP 158/65
[2016-09-27] MEDS: ACETAMINOPHEN TAB 650MG DOSE (2X325MG) PO PRN ×3 (04:14→20:49)
[2016-09-27 06:00] VITALS: BP 153/73
[2016-09-27] MEDS: LEVOTHYROXINE 0.05 MG TAB (50 MCG) PO SCH (06:07)
[2016-09-27 07:00] LABS: BASO % 0.3 % (0.0-1.0); EOS # 0.2 K/mm3 (0.0-0.50); LARGE UNSTAINED CELL # 0.3 K/mm3 (0.0-0.4); LARGE UNSTAINED CELL % 4.3 % (0.0-4.0); LYMPH # 0.7 K/mm3 (1.5-4.5); LYMPH % 11.6 % (24.0-44.0); MEAN CORPUSCULAR HEMOGLOBIN 32.3 pg (27.0-33.0); MEAN CORPUSCULAR VOLUME 97.9 fl (80.0-96.0); MONO # 0.5 K/mm3 (0.0-0.8); MONO % 8.7 % (0.0-5.0); NEUTROPHILS # 4.1 K/mm3 (1.8-7.7); NEUTROPHILS % 71.1 % (36.0-66.0); PLATELET COUNT, AUTOMATED 221 k/mm3 (150-450); RED CELL DISTRIBUTION WIDTH 15.2 % (11.5-14.5); WHITE BLOOD COUNT 5.8 K/mm3 (4.0-10.0)
[2016-09-27 07:05] LABS: INR 1.67
[2016-09-27 07:12] LABS: ALBUMIN 2.3 GM/DL (3.2-5.2); ALBUMIN/GLOBULIN RATIO 0.61 (1.00-1.93); ALKALINE PHOSPHATASE 78 U/L (45-117); ALT/SGPT 88 U/L (12-78); ANION GAP 8 MEQ/L (8-16); AST/SGOT 121 U/L (15-37); BILIRUBIN,TOTAL 0.4 MG/DL (0.2-1.0); BLOOD UREA NITROGEN 38 MG/DL (7-18); CALCIUM LEVEL 8.2 MG/DL (8.8-10.2); CARBON DIOXIDE LEVEL 30 MEQ/L (21-32); CHLORIDE LEVEL 104 MEQ/L (98-107); GLOMERULAR FILTRATION RATE > 60.0 (>35); GLUCOSE, FASTING 112 MG/DL (83-110); POTASSIUM SERUM 3.8 MEQ/L (3.5-5.1); SODIUM LEVEL 142 MEQ/L (136-145); TOTAL PROTEIN 6.1 GM/DL (6.4-8.2)
[2016-09-27] MEDS: HumaLOG INSULIN (NovoLOG) PER UNIT SC SCH ×3 (08:04→17:19)
[2016-09-27] MEDS: MIRALAX *UNIT DOSE* 17GM PACKET PO SCH (08:04)
[2016-09-27] MEDS: MOM 30ML SUSPENSION UDC PO SCH (08:04)
[2016-09-27] MEDS: ATENOLOL 25 MG TAB PO SCH (08:05)
[2016-09-27] MEDS: FINASTERIDE 5 MG TAB PO SCH (08:05)
[2016-09-27] MEDS: PRIMIDONE 50 MG TAB PO SCH ×2 (08:05→20:48)
[2016-09-27] MEDS: rOPINIRole 1MG TAB PO SCH ×2 (08:05→20:48)
[2016-09-27] MEDS: SENOKOT S TAB PO SCH ×2 (08:05→20:48)
--- NOTE | 2016-09-27 13:10 | IPNPDOC ---
Text Note Date of Service The patient was seen on 09/27/16. NOTE Subjective: Pt feels well. Denies any complaints. Objective: Vitals: (see below) General: No acute distress, laying comfortably in bed. HEENT: Moist mucous membranes. Neck: No JVD or lymphadenopathy Cardiac: RRR, No murmurs Pulm: Clear to auscultation b/l. No wheezing, rhonchi Abd: NT/ND + BS Ext: No edema or cyanosis. Distal pulses intact. Left hip surg site with bandage in tact. mild swelling. No bleeding. Labs (see below) Images: CXR 09/22/16 Findings: Mediastinum and cardiac silhouette stable with evidence for prior sternotomy and CABG. Lung ardon demonstrate diffuse chronic interstitial changes as well as scattered calcified pleural plaques. No obvious acute consolidation, effusion, or pneumothorax. Skeletal structures demonstrate osteopenia and degenerative changes without obvious acute fracture. Impression: Chronic changes. No acute cardiopulmonary process. CT Head 09/22/16 IMPRESSION: 1. Small vessel ischemic disease. 2. Moderate volume loss. X ray Left elbow Findings. There is soft tissue swelling over the olecranon and ossific density adjacent to the posterior olecranon at the insertion of the triceps tendon. There is a partial gap between that ossific density and the posterior portion of the olecranon. This suggests avulsion, chronic versus acute. Some focal swelling may reflect acute finding or olecranon bursitis. I do not see any definite joint effusion. There is no supracondylar fracture. 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 The radial head is without a fracture. The coronoid process of the ulna intact. Impression: 1. Soft tissue swelling over the olecranon which may reflect some olecranon bursitis, acute or chronic. There is ossification at the distal course of the triceps near its insertion which appears mildly avulsed, chronic versus acute. Please correlate clinically. 2. Bilateral epicondylitis with some soft tissue calcifications there. No other acute finding. X ray left hip 09/22/16 Impression: Acute left femoral neck fracture. Assessment/Plan 1. Left hip fx - s/p left hip repair 09/23/16. Mechanical fall. No syncope/ seizure like activity. DVT prophy/pain management per ortho. 2. Acute on chronic anemia s/p hip repair - no active bleeding. S/p 1U PRBC. Monitor H/H. 2. H/o CAD s/p CABG x 6 per medical records. Not on ASA. On BB. Will need to be back on ASA when he completes coumadin DVT prophy. 3. Dementia 4. Parkinson's dz 5. Hypothyroidism - cont Synthroid 6. HLD- on Statin 7. IDDM- cont levemir/SSI; decrease levemir dose to 5U, as pt was hypoglycemic in the am 8. Gait dysfunction with baseline Parkinson's - Physical therapy consult DVT prophy: Per orthopedics Pt is DNR/DNI. Place under alc. ?Placement VS,Fishbone, I+O VS, Fishbone, I+O Laboratory Tests 09/27/16 06:26 Calcium Level 8.2 L, Aspartate Amino Transf (AST/SGOT) 121 H, Alanine Aminotransferase (ALT/SGPT) 88 H, Alkaline Phosphatase 78, Total Bilirubin 0.4, Total Protein 6.1 L, Albumin 2.3 L, Red Blood Count 2.61 L, Mean Corpuscular Volume 97.9 H, Mean Corpuscular Hemoglobin 32.3, Mean Corpuscular Hemoglobin Concent 33.0, Red Cell Distribution Width 15.2 H, Neutrophils (%) (Auto) 71.1 H , Lymphocytes (%) (Auto) 11.6 L, Monocytes (%) (Auto) 8.7 H, Eosinophils (%) ( Auto) 4.0 H, Basophils (%) (Auto) 0.3, Neutrophils # (Auto) 4.1, Lymphocytes # ( Auto) 0.7 L, Monocytes # (Auto) 0.5, Eosinophils # (Auto) 0.2, Basophils # (Auto ) 0.0 Vital Signs Date Time Temp Pulse Resp B/P Pulse Ox O2 Delivery O2 Flow Rate FiO2 09/27/16 08:05 61 153/73 09/27/16 06:00 98.7 18 99 Room Air 09/24/16 14:00 0.0 I&O- Last 24 Hours up to 6 AM 09/27/16 06:00 Intake Total 1280 ml Balance 1280 ml TALON RUIZ MD Sep 27, 2016 13:10
[2016-09-27 14:00] VITALS: BP 160/73
[2016-09-27] MEDS ORDERED: WARFARIN SOD 3 MG TAB PO ONE (17:00)
[2016-09-27] MEDS: OLANZapine 5 MG TAB PO SCH (20:48)
[2016-09-27] MEDS: SIMVASTATIN 10 MG TAB PO SCH (20:48)
[2016-09-27] MEDS: LEVEMIR (INSULIN DETEMIR) 1 UNITS/0.01ML SC SCH (20:48)
[2016-09-27 22:00] VITALS: BP 137/65
[2016-09-28 06:00] VITALS: BP 138/90
[2016-09-28] MEDS: LEVOTHYROXINE 0.05 MG TAB (50 MCG) PO SCH (06:07)
[2016-09-28 07:14] LABS: BASO % 0.2 % (0.0-1.0); EOS # 0.3 K/mm3 (0.0-0.50); EOS % 5.8 % (0.0-3.0); LARGE UNSTAINED CELL # 0.2 K/mm3 (0.0-0.4); LARGE UNSTAINED CELL % 4.1 % (0.0-4.0); LYMPH # 0.6 K/mm3 (1.5-4.5); LYMPH % 11.3 % (24.0-44.0); MEAN CORPUSCULAR HEMOGLOBIN 33.3 pg (27.0-33.0); MEAN CORPUSCULAR HGB CONC 33.6 g/dl (32.0-36.5); MEAN CORPUSCULAR VOLUME 99.2 fl (80.0-96.0); MONO # 0.5 K/mm3 (0.0-0.8); MONO % 8.8 % (0.0-5.0); NEUTROPHILS % 69.9 % (36.0-66.0); PLATELET COUNT, AUTOMATED 282 k/mm3 (150-450); RED CELL DISTRIBUTION WIDTH 14.6 % (11.5-14.5); WHITE BLOOD COUNT 5.7 K/mm3 (4.0-10.0)
[2016-09-28 07:35] LABS: ALBUMIN 2.4 GM/DL (3.2-5.2); ALKALINE PHOSPHATASE 81 U/L (45-117); ALT/SGPT 151 U/L (12-78); ANION GAP 5 MEQ/L (8-16); AST/SGOT 160 U/L (15-37); BILIRUBIN,TOTAL 0.4 MG/DL (0.2-1.0); BLOOD UREA NITROGEN 36 MG/DL (7-18); CALCIUM LEVEL 8.2 MG/DL (8.8-10.2); CARBON DIOXIDE LEVEL 32 MEQ/L (21-32); CHLORIDE LEVEL 104 MEQ/L (98-107); CREATININE FOR GFR 0.87 MG/DL (0.70-1.30); GLOMERULAR FILTRATION RATE > 60.0 (>35); GLUCOSE, FASTING 133 MG/DL (83-110); MAGNESIUM LEVEL 2.3 MG/DL (1.8-2.4); POTASSIUM SERUM 4.5 MEQ/L (3.5-5.1); SODIUM LEVEL 141 MEQ/L (136-145); TOTAL PROTEIN 6.4 GM/DL (6.4-8.2)
[2016-09-28] MEDS: FINASTERIDE 5 MG TAB PO SCH (08:52)
[2016-09-28] MEDS: MIRALAX *UNIT DOSE* 17GM PACKET PO SCH (08:52)
[2016-09-28] MEDS: rOPINIRole 1MG TAB PO SCH ×2 (08:52→20:18)
[2016-09-28] MEDS: MOM 30ML SUSPENSION UDC PO SCH (08:52)
[2016-09-28] MEDS: ATENOLOL 25 MG TAB PO SCH (08:53)
[2016-09-28] MEDS: HumaLOG INSULIN (NovoLOG) PER UNIT SC SCH ×3 (08:53→17:38)
[2016-09-28] MEDS: SENOKOT S TAB PO SCH ×2 (08:54→20:19)
[2016-09-28] MEDS: PRIMIDONE 50 MG TAB PO SCH ×2 (08:54→20:18)
[2016-09-28 14:00] VITALS: BP 152/68
[2016-09-28] MEDS ORDERED: METOPROLOL TART 25 MG TABLET PO ONE (20:15)
[2016-09-28] MEDS: OLANZapine 5 MG TAB PO SCH (20:18)
[2016-09-28] MEDS: SIMVASTATIN 10 MG TAB PO SCH (20:18)
[2016-09-28 21:00] VITALS: BP 200/75
[2016-09-28] MEDS: LEVEMIR (INSULIN DETEMIR) 1 UNITS/0.01ML SC SCH (21:31)
[2016-09-29] VITALS: BP 145/55
[2016-09-29] MEDS: ACETAMINOPHEN TAB 650MG DOSE (2X325MG) PO PRN ×2 (04:10→08:10)
[2016-09-29 06:00] VITALS: BP 167/70
[2016-09-29] MEDS ORDERED: METOPROLOL TART 25 MG TABLET PO SCH (06:00)
[2016-09-29 06:01] VITALS: BP 167/70
[2016-09-29] MEDS: LEVOTHYROXINE 0.05 MG TAB (50 MCG) PO SCH (06:01)
[2016-09-29 07:03] LABS: BASO % 0.3 % (0.0-1.0); EOS # 0.2 K/mm3 (0.0-0.50); EOS % 3.1 % (0.0-3.0); LARGE UNSTAINED CELL # 0.2 K/mm3 (0.0-0.4); LYMPH # 0.8 K/mm3 (1.5-4.5); LYMPH % 11.2 % (24.0-44.0); MEAN CORPUSCULAR HEMOGLOBIN 33.4 pg (27.0-33.0); MEAN CORPUSCULAR HGB CONC 33.5 g/dl (32.0-36.5); MEAN CORPUSCULAR VOLUME 99.9 fl (80.0-96.0); MONO # 0.5 K/mm3 (0.0-0.8); MONO % 9.6 % (0.0-5.0); NEUTROPHILS # 3.9 K/mm3 (1.8-7.7); NEUTROPHILS % 72.7 % (36.0-66.0); PLATELET COUNT, AUTOMATED 308 k/mm3 (150-450); RED CELL DISTRIBUTION WIDTH 14.7 % (11.5-14.5); WHITE BLOOD COUNT 5.4 K/mm3 (4.0-10.0)
[2016-09-29 07:06] LABS: INR 1.75
[2016-09-29 07:19] LABS: ALBUMIN 2.4 GM/DL (3.2-5.2); ALBUMIN/GLOBULIN RATIO 0.57 (1.00-1.93); ALKALINE PHOSPHATASE 98 U/L (45-117); ALT/SGPT 204 U/L (12-78); ANION GAP 7 MEQ/L (8-16); AST/SGOT 178 U/L (15-37); BILIRUBIN,TOTAL 0.6 MG/DL (0.2-1.0); BLOOD UREA NITROGEN 35 MG/DL (7-18); CARBON DIOXIDE LEVEL 31 MEQ/L (21-32); CHLORIDE LEVEL 104 MEQ/L (98-107); CREATININE FOR GFR 0.81 MG/DL (0.70-1.30); GLOMERULAR FILTRATION RATE > 60.0 (>35); GLUCOSE, FASTING 115 MG/DL (83-110); MAGNESIUM LEVEL 2.3 MG/DL (1.8-2.4); SODIUM LEVEL 142 MEQ/L (136-145); TOTAL PROTEIN 6.6 GM/DL (6.4-8.2)
[2016-09-29] MEDS: PRIMIDONE 50 MG TAB PO SCH (08:10)
[2016-09-29] MEDS: MOM 30ML SUSPENSION UDC PO SCH (08:10)
[2016-09-29] MEDS: SENOKOT S TAB PO SCH (08:10)
[2016-09-29] MEDS: FINASTERIDE 5 MG TAB PO SCH (08:10)
[2016-09-29] MEDS: MIRALAX *UNIT DOSE* 17GM PACKET PO SCH (08:10)
[2016-09-29] MEDS: rOPINIRole 1MG TAB PO SCH (08:10)
[2016-09-29] MEDS: HumaLOG INSULIN (NovoLOG) PER UNIT SC SCH ×2 (08:11→12:02)
[2016-09-29] MEDS ORDERED: METO25TAB PO (11:52)
[2016-09-29] MEDS ORDERED: INSUDET SC (11:52)
[2016-09-29] MEDS ORDERED: INSUHUMDS SC (11:52)
[2016-09-29] MEDS ORDERED: LISI10TA4 PO (11:53)
[2016-09-29] MEDS ORDERED: WARFARIN SOD 5 MG TAB PO ONE (17:00)
== END 2016-09-29 12:50 | disposition home or self-care (01) | DRG 470 ==
LOC: M ED 13:18 → M ED INP 15:56 → M MS5PR 17:36
PROVIDERS: ADMIT Internal Medicine; ATTEND Internal Medicine
PROC: 0SRB0J9 Replacement of Left Hip Joint with Synthetic Substitute, Cemented, Open Approach (ICD-10-PCS; principal; 2016-09-23 09:30)
PROC: 30233N1 Transfusion of Nonautologous Red Blood Cells into Peripheral Vein, Percutaneous Approach (ICD-10-PCS; 2016-09-25)
DX: S72.002A Fracture of unspecified part of neck of left femur, initial encounter for closed fracture (principal); G20 Parkinson's disease; F02.80 Dementia in other diseases classified elsewhere, unspecified severity, without behavioral disturbance, psychotic disturbance, mood disturbance, and anxiety; I25.10 Atherosclerotic heart disease of native coronary artery without angina pectoris; E11.9 Type 2 diabetes mellitus without complications; Z91.19 Patient's noncompliance with other medical treatment and regimen; Z79.82 Long term (current) use of aspirin; Z79.899 Other long term (current) drug therapy; R26.89 Other abnormalities of gait and mobility; D64.9 Anemia, unspecified; W18.30XA Fall on same level, unspecified, initial encounter; Y92.009 Unspecified place in unspecified non-institutional (private) residence as the place of occurrence of the external cause

== ENCOUNTER → 2016-09-30 | Outpatient (REF) ==
[~2016-09-30] MED LIST changes: +ASPI1TAB PO; +INSUDET SC; +INSUHUMDS SC; +LISI10TA4 PO; +METO25TAB PO; +MIRA33504 PO; +OLAN5TAB PO; +PRESCAP6 PO; +PRIM50TA6 PO; +PROS5TAB PO; +ROPI1TAB PO; +SIMV10TA2 PO; +SYNT50TA PO; +SYST1SOL OU; +TYLE500T78 PO
[2016-09-30 10:04] LABS: INR 1.53
== END ==
LOC: SKLAB3 07:26
PROVIDERS: ATTEND Internal Medicine
DX: Z79.01 Long term (current) use of anticoagulants (principal)

== ENCOUNTER → 2016-10-04 | Outpatient (REF) ==
[2016-10-04 09:03] LABS: INR 1.17
== END ==
LOC: SKLAB3 12:40
PROVIDERS: ATTEND Internal Medicine
DX: I82.90 Acute embolism and thrombosis of unspecified vein (principal); S72.90XA Unspecified fracture of unspecified femur, initial encounter for closed fracture; X58.XXXA Exposure to other specified factors, initial encounter; Y92.9 Unspecified place or not applicable; Y93.9 Activity, unspecified; Y99.9 Unspecified external cause status

== ENCOUNTER → 2016-10-05 | Outpatient (REF) | LOC: SKLAB3 12:07 | PROVIDERS: ATTEND Internal Medicine | DX: R73.9 Hyperglycemia, unspecified (principal) ==

== ENCOUNTER → 2016-10-07 | Outpatient (REF) ==
[2016-10-07 10:44] LABS: MEAN CORPUSCULAR HEMOGLOBIN 32.7 pg (27.0-33.0); MEAN CORPUSCULAR HGB CONC 32.8 g/dl (32.0-36.5); MEAN CORPUSCULAR VOLUME 99.5 fl (80.0-96.0); RED CELL DISTRIBUTION WIDTH 14.3 % (11.5-14.5); WHITE BLOOD COUNT 8.1 K/mm3 (4.0-10.0)
[2016-10-07 11:09] LABS: ANION GAP 9 MEQ/L (8-16); BLOOD UREA NITROGEN 57 MG/DL (7-18); CALCIUM LEVEL 7.8 MG/DL (8.8-10.2); CARBON DIOXIDE LEVEL 27 MEQ/L (21-32); CHLORIDE LEVEL 100 MEQ/L (98-107); CREATININE FOR GFR 1.14 MG/DL (0.70-1.30); GLOMERULAR FILTRATION RATE > 60.0 (>35); GLUCOSE, FASTING 328 MG/DL (83-110); SODIUM LEVEL 136 MEQ/L (136-145)
[2016-10-07 11:10] LABS: POTASSIUM SERUM 5.6 MEQ/L (3.5-5.1)
--- NOTE | 2016-10-08 07:28 | ECGEPIP ---
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
== END ==
LOC: SKLAB3 09:55
PROVIDERS: ATTEND Internal Medicine
DX: S72.002D Fracture of unspecified part of neck of left femur, subsequent encounter for closed fracture with routine healing (principal); I44.0 Atrioventricular block, first degree; I25.2 Old myocardial infarction; X58.XXXD Exposure to other specified factors, subsequent encounter; Y92.9 Unspecified place or not applicable; Y93.9 Activity, unspecified; Y99.9 Unspecified external cause status

== ENCOUNTER → 2016-10-09 | Outpatient (REF) | payer MEDICARE ==
[2016-10-09 08:14] LABS: ANION GAP 9 MEQ/L (8-16); BLOOD UREA NITROGEN 45 MG/DL (7-18); CALCIUM LEVEL 8.1 MG/DL (8.8-10.2); CARBON DIOXIDE LEVEL 26 MEQ/L (21-32); CHLORIDE LEVEL 101 MEQ/L (98-107); CREATININE FOR GFR 0.89 MG/DL (0.70-1.30); GLOMERULAR FILTRATION RATE > 60.0 (>35); GLUCOSE, FASTING 215 MG/DL (83-110); SODIUM LEVEL 136 MEQ/L (136-145)
[2016-10-09 08:15] LABS: POTASSIUM SERUM 5.8 MEQ/L (3.5-5.1)
== END ==
LOC: SKLAB3 07:00
PROVIDERS: ATTEND Family Medicine
DX: E87.5 Hyperkalemia (principal)

== ENCOUNTER → 2016-10-11 | Outpatient (REF) | payer MEDICARE ==
[~2016-10-11] MED LIST changes: +ASPI81CH PO; +AUGM500T34 PO; +CEFT1INJ3 IM; +CEFT1INJ65 IM; +DULC10SU2 PR; +ENEMENE3 PR; +FERR325T3 PO; +FLOM5CAP PO; +GLUC1.2L PO; +METO-207 PO; +MILKSUS PO; +PRESCAP PO; +RIFA150C PO; +SANT250O8 TOP; +SENN-23 PO; +SENN8.6C PO; +TYLE325T5 PO; +VITA500T3 PO; +VITMTA PO
[2016-10-11 09:24] LABS: ANION GAP 8 MEQ/L (8-16); BLOOD UREA NITROGEN 36 MG/DL (7-18); CALCIUM LEVEL 8.4 MG/DL (8.8-10.2); CARBON DIOXIDE LEVEL 26 MEQ/L (21-32); CHLORIDE LEVEL 102 MEQ/L (98-107); CREATININE FOR GFR 0.93 MG/DL (0.70-1.30); GLOMERULAR FILTRATION RATE > 60.0 (>35); GLUCOSE, FASTING 252 MG/DL (83-110); SODIUM LEVEL 136 MEQ/L (136-145)
[2016-10-11 09:27] LABS: POTASSIUM SERUM 5.3 MEQ/L (3.5-5.1)
== END ==
LOC: SKLAB3 01:04
PROVIDERS: ATTEND Internal Medicine
DX: E87.5 Hyperkalemia (principal)

== ENCOUNTER → 2016-10-15 | Outpatient (REF) ==
[~2016-10-15] MED LIST changes: -ASPI81CH PO; -AUGM500T34 PO; -CEFT1INJ3 IM; -CEFT1INJ65 IM; -DULC10SU2 PR; -ENEMENE3 PR; -FERR325T3 PO; -FLOM5CAP PO; -GLUC1.2L PO; -METO-207 PO; -MILKSUS PO; -PRESCAP PO; -RIFA150C PO; -SANT250O8 TOP; -SENN-23 PO; -SENN8.6C PO; -TYLE325T5 PO; -VITA500T3 PO; -VITMTA PO
[2016-10-15 14:35] LABS: MEAN CORPUSCULAR HEMOGLOBIN 32.4 pg (27.0-33.0); MEAN CORPUSCULAR HGB CONC 32.4 g/dl (32.0-36.5); MEAN CORPUSCULAR VOLUME 100.1 fl (80.0-96.0); RED CELL DISTRIBUTION WIDTH 14.4 % (11.5-14.5); WHITE BLOOD COUNT 7.3 K/mm3 (4.0-10.0)
[2016-10-15 14:48] LABS: ANION GAP 7 MEQ/L (8-16); BLOOD UREA NITROGEN 51 MG/DL (7-18); CALCIUM LEVEL 8.7 MG/DL (8.8-10.2); CARBON DIOXIDE LEVEL 28 MEQ/L (21-32); CHLORIDE LEVEL 103 MEQ/L (98-107); CREATININE FOR GFR 1.03 MG/DL (0.70-1.30); GLOMERULAR FILTRATION RATE > 60.0 (>35); GLUCOSE, FASTING 138 MG/DL (83-110); POTASSIUM SERUM 4.9 MEQ/L (3.5-5.1); SODIUM LEVEL 138 MEQ/L (136-145)
== END ==
LOC: SKLAB3 13:47
PROVIDERS: ATTEND Internal Medicine
DX: R53.83 Other fatigue (principal)

== ENCOUNTER → 2016-10-18 | Outpatient (REF) ==
[~2016-10-18] MED LIST changes: +ASPI81CH PO; +AUGM500T34 PO; +CEFT1INJ3 IM; +CEFT1INJ65 IM; +DULC10SU2 PR; +ENEMENE3 PR; +FERR325T3 PO; +GLUC1.2L PO; +METO-207 PO; +MILKSUS PO; +PRESCAP PO; +SENN-23 PO; +SENN8.6C PO; +TYLE325T5 PO; +VITA500T3 PO; +VITMTA PO
[2016-10-18 08:28] LABS: MEAN CORPUSCULAR HEMOGLOBIN 33.3 pg (27.0-33.0); MEAN CORPUSCULAR HGB CONC 33.6 g/dl (32.0-36.5); MEAN CORPUSCULAR VOLUME 99.2 fl (80.0-96.0); RED CELL DISTRIBUTION WIDTH 14.4 % (11.5-14.5); WHITE BLOOD COUNT 7.2 K/mm3 (4.0-10.0)
== END ==
LOC: SKLAB3 08:00
PROVIDERS: ATTEND Internal Medicine
DX: D64.9 Anemia, unspecified (principal)

== ENCOUNTER → 2016-10-21 | Outpatient (REF) ==
[2016-10-21 09:42] LABS: MEAN CORPUSCULAR HEMOGLOBIN 32.6 pg (27.0-33.0); MEAN CORPUSCULAR HGB CONC 32.9 g/dl (32.0-36.5); MEAN CORPUSCULAR VOLUME 99.1 fl (80.0-96.0); RED CELL DISTRIBUTION WIDTH 14.5 % (11.5-14.5); WHITE BLOOD COUNT 11.4 K/mm3 (4.0-10.0)
== END ==
LOC: SKLAB3 08:00
PROVIDERS: ATTEND Family Medicine
DX: D58.2 Other hemoglobinopathies (principal)

== ENCOUNTER → 2016-10-22 | Outpatient (REF) | LOC: SKLAB3 10:13 | PROVIDERS: ATTEND Internal Medicine | DX: D64.9 Anemia, unspecified (principal) ==

== ENCOUNTER → 2016-10-23 | Outpatient (REF) | payer MEDICARE | LOC: SKLAB3 14:37 | PROVIDERS: ATTEND Internal Medicine | DX: E11.9 Type 2 diabetes mellitus without complications (principal); Z79.4 Long term (current) use of insulin ==

== ENCOUNTER → 2016-10-24 | Outpatient (REF) | payer MEDICARE ==
[2016-10-24 14:53] LABS: WHITE BLOOD COUNT 16.3 K/mm3 (4.0-10.0)
[2016-10-24 14:54] LABS: MEAN CORPUSCULAR HGB CONC 32.4 g/dl (32.0-36.5); RED CELL DISTRIBUTION WIDTH 14.8 % (11.5-14.5)
== END ==
LOC: SKLAB3 13:15
PROVIDERS: ATTEND Internal Medicine
DX: R50.9 Fever, unspecified (principal)

== ENCOUNTER → 2016-10-25 | Outpatient (REF) | payer MEDICARE | LOC: SKLAB3 21:26 | PROVIDERS: ATTEND Internal Medicine | DX: E11.9 Type 2 diabetes mellitus without complications (principal); Z79.4 Long term (current) use of insulin ==

== ENCOUNTER 2016-10-26 20:15 | Inpatient (IN) | payer MEDICARE ==
[~2016-10-26] VITALS: Ht 182.9 cm; Wt 68.6 kg
[~2016-10-26 20:15] MED LIST changes: -ASPI81CH PO; -AUGM500T34 PO; -CEFT1INJ3 IM; -CEFT1INJ65 IM; -DULC10SU2 PR; -ENEMENE3 PR; -FERR325T3 PO; -GLUC1.2L PO; -METO-207 PO; -MILKSUS PO; -PRESCAP PO; -SENN-23 PO; -SENN8.6C PO; -TYLE325T5 PO; -VITA500T3 PO; -VITMTA PO
[2016-10-26] MEDS ORDERED: ACETAMINOPHEN 650 MG SUPP PR ONE (20:30)
[2016-10-26 20:59] LABS: BASO % 0.1 % (0.0-1.0); EOS % 0.4 % (0.0-3.0); LARGE UNSTAINED CELL # 0.2 K/mm3 (0.0-0.4); LARGE UNSTAINED CELL % 1.7 % (0.0-4.0); LYMPH # 0.8 K/mm3 (1.5-4.5); LYMPH % 5.6 % (24.0-44.0); MEAN CORPUSCULAR HEMOGLOBIN 31.9 pg (27.0-33.0); MEAN CORPUSCULAR HGB CONC 31.9 g/dl (32.0-36.5); MEAN CORPUSCULAR VOLUME 100.1 fl (80.0-96.0); MONO # 0.5 K/mm3 (0.0-0.8); MONO % 4.9 % (0.0-5.0); NEUTROPHILS # 9.3 K/mm3 (1.8-7.7); NEUTROPHILS % 87.2 % (36.0-66.0); PLATELET COUNT, AUTOMATED 353 k/mm3 (150-450); RED CELL DISTRIBUTION WIDTH 14.6 % (11.5-14.5); WHITE BLOOD COUNT 10.7 K/mm3 (4.0-10.0)
[2016-10-26] MEDS ORDERED: NS 1,000 ML IV ONE ×2 (21:00)
[2016-10-26 21:04] LABS: ALBUMIN/GLOBULIN RATIO 0.43 (1.00-1.93); ALKALINE PHOSPHATASE 182 U/L (45-117); ALT/SGPT 159 U/L (12-78); ANION GAP 6 MEQ/L (8-16); AST/SGOT 83 U/L (15-37); BILIRUBIN,DIRECT < 0.1 MG/DL (0.0-0.2); BILIRUBIN,TOTAL 0.2 MG/DL (0.2-1.0); BLOOD UREA NITROGEN 82 MG/DL (7-18); CALCIUM LEVEL 8.1 MG/DL (8.8-10.2); CARBON DIOXIDE LEVEL 26 MEQ/L (21-32); CHLORIDE LEVEL 103 MEQ/L (98-107); CREATININE FOR GFR 1.41 MG/DL (0.70-1.30); GLOMERULAR FILTRATION RATE 50.6 (>35); GLUCOSE, FASTING 391 MG/DL (83-110); INR 1.21; SODIUM LEVEL 135 MEQ/L (136-145); TOTAL PROTEIN 6.6 GM/DL (6.4-8.2)
[2016-10-26 21:11] LABS: POTASSIUM SERUM 5.3 MEQ/L (3.5-5.1)
[2016-10-26] MEDS ORDERED: SENN8.6C PO (21:18)
[2016-10-26] MEDS ORDERED: CEFT1INJ65 IM (21:18)
[2016-10-26] MEDS ORDERED: AUGM500T34 PO (21:18)
[2016-10-26] MEDS ORDERED: FERR325T3 PO (21:18)
[2016-10-26] MEDS ORDERED: VANCOMYCIN HCL 1,000 MG, VIAL MATE ADAPTER 1 EACH in D5W 250 ML IV ONE (21:30)
[2016-10-26] MEDS ORDERED: PIPERACILLIN/TAZOBACTAM SOD 3.375 GM in D5W MINI-BAG PLUS 50 ML IV ONE (21:30)
[2016-10-26] MEDS ORDERED: PRESCAP PO (21:48)
[2016-10-26] MEDS ORDERED: ASPI81CH PO (21:48)
[2016-10-26] MEDS ORDERED: GLUC1.2L PO (21:48)
[2016-10-26] MEDS ORDERED: SENN-23 PO (21:48)
[2016-10-26] MEDS ORDERED: CEFT1INJ3 IM (21:48)
[2016-10-26] MEDS ORDERED: TYLE325T5 PO (21:48)
[2016-10-26] MEDS ORDERED: INSUHUMDS SC (21:48)
[2016-10-26] MEDS ORDERED: VITA500T3 PO (21:48)
[2016-10-26] MEDS ORDERED: METO-207 PO (21:49)
[2016-10-26] MEDS ORDERED: INSUDET SC (21:49)
[2016-10-26] MEDS ORDERED: VITMTA PO (21:49)
[2016-10-26] MEDS ORDERED: DULC10SU2 PR (21:50)
[2016-10-26] MEDS ORDERED: ENEMENE3 PR (21:50)
[2016-10-26] MEDS ORDERED: MILKSUS PO (21:50)
[2016-10-26] MEDS ORDERED: ISOVUE-370 76% 100ML VIAL (Q9967) As Ordered ONE (21:53)
--- NOTE | 2016-10-26 22:50 | REPUSA ---
CT of the abdomen and pelvis with contrast Clinical statement: fever, there edema over the left hip. Technique: Multiple axial CT images were obtained from the base of the lungs through the floor of the pelvis utilizing 5 mm axial slices after administration of nonionic intravenous contrast. Coronal an d sagittal reconstructions were also obtained. Comparison: 11/20/2014. Findings: Chest: The visualized lung bases are clear. Abdomen: The spleen, pancreas, kidneys, and adrenal glands are unremarkable. The liver is enlarged, m easuring up to .6 cm in diameter. No focal hepatic masses are appreciated. The aorta is within normal limits. There is no evidence of abdominal lymphadenopathy or ascites. Pelvis: Moderate amount of stool fills the colon.The bowel is otherwise unremarkable, with no obstruc tive or inflammatory changes. The urinary bladder is catheterized but within normal limits. The other pelvic structures appear grossly intact. There is no evidence of pelvic lymphadenopathy or ascites. Streak artifact from the left hip arthroplasty obscures the superficial soft tissues around the left hip joint. However, there is an ill-defined area of low attenuation in the lateral left gluteal muscl es posterior to the left hip joint, measuring 3.0 x 4.5 cm. A tiny pocket of gas is suspected at this site. There also may be ill-defined fluid collections lateral and superior to the greater trochanter , but this is obscured by the artifact. Several pockets of gas are suspected. Bones: There are no suspicious osseous abnormalities seen. Moderate degenerative disc disease with di sc osteophyte complexes are seen at L4/L5 and L5/S1. Left hip arthroplasty is intact. Impression: 1. Ill-defined low attenuation areas lateral and posterior to the left hip joint as described. This i s difficult to fully evaluate because of the artifact from the left hip arthroplasty. However, I susp ect that this could represent a developing abscess. A tiny foci of low attenuation could represent po cket of gas. If there is continued clinical concern for an acute abscess, ultrasound of this region m ay be beneficial. 2. Moderately severe constipation. No obstructive or inflammatory bowel changes. 3. Hepatomegaly. 4. Moderate degenerative disc disease at L4/L5 and L5/S1. ER physician was notified of these findings at 10:45 PM on 10/26/2016.
[2016-10-26] MEDS ORDERED: BISACODYL 10 MG SUPP PR PRN (23:00)
[2016-10-26] MEDS ORDERED: GLUCOSE 4 GM CHEW TABLET PO PRN (23:00)
[2016-10-26] MEDS ORDERED: DEXTROSE 50% 50 ML SYRINGE IV PRN (23:00)
[2016-10-26] MEDS ORDERED: MOM 30ML SUSPENSION UDC PO PRN (23:00)
[2016-10-26] MEDS ORDERED: GLUCAGON FOR INJ 1 MG VIAL (J1610) SC PRN (23:00)
[2016-10-26] MEDS ORDERED: FLEET ENEMA PR PRN (23:00)
[2016-10-27] VITALS (7 sets, daily range): BP systolic 133–157; BP diastolic 60–67
--- NOTE | 2016-10-27 00:20 | REPUSA ---
Clinical history: left hip fluid collection. Findings: Real-time ultrasound imaging of the left hip was performed. There is a loculated complex fl uid collection along the lateral and posterior soft tissues around the left hip joint. This measures are at least 8.5 x 4.4 x 5.2 cm. This corresponds to the low attenuation lesion seen on the prior CT examination of 10/26/2016. Impression: Findings consistent with an abscess around the left hip joint.
--- NOTE | 2016-10-27 00:24 | HPE ---
DATE OF ADMISSION: 10/26/2016 PRIMARY CARE PROVIDER: Dr. Ruggiero HISTORY OF THE PRESENT ILLNESS: This patient is an 85-year-old male with a past medical history significant for dementia, Parkinson's, coronary artery disease s /p CABG times six, hyperlipidemia, hypothyroidism, bilateral heel pressure ulcer and recent left hip replacement, came to [facility] on 10/26/2016 for bacteremia. The patient has been a [facility] ([facility] resident. The patient is a poor historian, and the patient has signs of dementia and unable to answer most questions. Information obtained from the medical record. The patient has worsening bilateral heel ulcers and since a few weeks ago, the patient started having serous drainage from the heel ulcers. Laboratory was collected on 10/24/2016 from both the heel wounds and also from the blood. Later, the culture came back positive for Staphylococcus aureus, and the patient's primary care provider was instructed to transfer the patient from [facility] to [facility] for further evaluation. When the patient was seen in the emergency room, the patient was found to have a temperature of 103.6, the patient also had an elevated white count, and the patient was given vancomycin and Zosyn and the patient received IV bolus, and the hospitalist team was called for admission. The patient denies any chest pain or shortness of breath. Unable to answer all other questions. The patient's health care proxy is his , Aida. Her phone number is [phone]. ALLERGIES: 1. LORATADINE. 2. MORPHINE. 3. PENTAZOCINE. 4. PSEUDOEPHEDRINE. PAST MEDICAL HISTORY: Coronary artery disease, status post coronary artery bypass graft (CABG) times six. Hyperlipidemia. Dementia. Parkinson's disease. Insulin-dependent diabetes. Hypothyroidism. Bilateral heel pressure wound. PAST SURGICAL HISTORY: Left hip replacement by Dr. Field 09/23/2016. Appendectomy. Cholecystectomy. CABG. SOCIAL HISTORY: The patient is a retirement resident. Denies tobacco use, denies alcohol use, denies any recreational drug use. The patient is DO NOT RESUSCITATE/DO NOT INTUBATE (DNR/DNI). The patient's health care proxy is his , Aida. REVIEW OF SYSTEMS: Unable to obtain due to patient mentation. OBJECTIVE: VITAL SIGNS: Temperature is 101, pulse is 86, blood pressure 125/58, pulse oximetry is 95% in room air. GENERAL: The patient is alert and awake. The patient is not fully oriented. The patient knows he is in the hospital, and he knows about his birthday. However, the patient cannot follow commands. HEENT: Normocephalic, atraumatic. Extraocular motor grossly intact. CARDIOVASCULAR: Positive systolic murmur. Positive S1, S2, regular rate. LUNGS: Clear to auscultation bilaterally. ABDOMEN: Soft, nontender, nondistended. Bowel sounds present. MUSCULOSKELETAL: Positive warmth and erythema located near the left hip surgical site. Positive bilateral heel ulcers, unable to determine the stage due to the dry scab covering the whole wound. NEUROLOGICAL: Unable to perform due to the patient's mentation. LABORATORY DATA: WBC is 10.7, hemoglobin 7, hematocrit 22.1, platelet count is 353. Sodium is 135, potassium 5.3, chloride is 103, carbon dioxide 26, BUN 82, creatinine 1.41, GFR is 50.6, fasting glucose is 391, calcium is 8.1, lactic acid 1.6, total bilirubin is 0.2, direct bilirubin is less than 0.1. AST is 83, ALT is 159, alkaline phosphatase is 182. Total protein is 6.6, albumin is 2. IMAGING STUDIES: CT of the abdomen and pelvis with contrast shows ill-defined low attenuation area lateral and posterior to the left hip joint. Moderately severe constipation. No obstructions. Hepatomegaly. Moderate degenerative disc disease. Chest x-ray: Official report pending. EKG shows sinus rhythm with possible first-degree heart block. ASSESSMENT AND PLAN: Sepsis. The patient had a temperature highest at 103. The patient had a white count of 16.3 just 2 days ago. The patient also noted to have a tachypnea with respiratory rate of 28 when the patient first arrived in the emergency room. Unable to test the patient's mentation due to chronic dementia. The patient will be admitted to medical-surgical floor. The patient will be nothing by mouth. The patient will be on IV fluids running at 80 mL per hour. Blood culture shows Staphylococcus aureus, sensitivity not available. The patient does have a heel wound culture, shows Staphylococcus aureus and sensitivity is available and the patient was started on vancomycin. Possible source for the patient's bacteremia and sepsis could be from the bilateral heel pressure wound. From the physical exam and CT imaging, the patient does have erythema and warmth at the previous surgical site. We will follow with the ultrasound of the hip to rule out any developing abscess. We will contact the orthopedic team. Staphylococcus aureus bacteremia, on vancomycin, IV fluid support. Severe anemia. The patient has chronic anemia. His hemoglobin at baseline usually runs 8 or above. Today, the patient presents with a hemoglobin of 7. Will follow with stool occult blood. I did discuss the situation with the patient's , his health care proxy. She gave verbal consent for blood transfusion if needed. Her contact number is [phone]. The patient did have a colonoscopy performed by Dr. Temple on 09/19/2002. The results showed diverticulosis. Hypothyroidism. The patient is on Synthroid. Will follow with a thyroid-stimulating hormone (TSH). History of coronary artery disease, status post CABG. The patient is on aspirin 81 mg daily. The patient is on a low dose statin. The patient is also on metoprolol. Constipation. The patient has Senna S one tablet by mouth twice a day, Milk of Magnesia as needed, MiraLAX daily, Fleet enema as needed. History of Parkinson's disease. History of dementia. Hyperlipidemia, on low dose statin. Insulin-dependent diabetes, on sliding scale. Acute kidney injury. At baseline, the patient has a normal renal function. The most recent lab was done on 10/15/2016. Baseline creatinine of 1, GFR greater than 60. The patient's acute kidney injury (LUKE) is most likely secondary to prerenal azotemia. The patient is on IV fluid, will recheck renal function in the morning. Deep vein thrombosis (DVT) prophylaxis. The patient is on heparin. MTDD
--- NOTE | 2016-10-27 00:30 | PHACANCOPD ---
PHARMACY VANCOMYCIN DOSING Pt Demographics Demographics Patient Age:85 , Weight: , Gender: male Adjusted Body Weight Date: 10/27/16, Adjusted Body Weight: [72.6] Kg Events Past 24 Hours Events Past 24 Hours: NO: Change in CrCl, Dialysis, Diuretic Therapy, Elevation in WBC, Fever, Other, Pending Diagnostics, Pending Procedures Vancomycin Vancomycin Target Ranges: 15-20 mcg/ml Vancomycin Load Y/N: No Load Dose Date Time Vancomycin Load Dose: Date: Time: Vancomycin Dose Date: 10/27/16. Current Vancomycin Dose: [1000MG Q12H] Intermittent Dosing?: No Labs Labs Item Value Date Time White Blood Count 10.7 K/mm3 H 10/26/162031 Creatinine 1.41 MG/DL H 10/26/162031 Vital Signs Label Value Date Time Patient Temperature 100.0 degrees F 10/26/16 2316 Temperature Source Oral 10/26/162315 Micro Microbiology 10/26/16 Blood Culture, Received Pending 10/26/16 Blood Culture, Received Pending 10/26/16 Influenza Virus Type A Antigen - Final, Complete 10/26/16 Influenza Virus Type B Antigen - Final, Complete 10/26/16 Urine Culture, Received Pending Creatinine Clearance Date:10/27/16. Creatinine Clearance: [40]. Pending Labs Trough 03 @0000 Assessment and Plan Maintaining Current Dose?: Yes Reason for dose change: No Dose Change Pharmacist Note Pharmacist Note Date: 10/27/16. Pharmacist note:1000mg given 10-26 @2100 in ER with q12h dosing started 10-27 @0100. Trough ordered for 10-28 @0000. Will continue to monitor and make adjustments as needed. SYLVIA NINA PHARMACY Oct 27, 2016 00:29
[2016-10-27] MEDS: HumaLOG INSULIN (NovoLOG) PER UNIT SC SCH ×4 (00:36→22:07)
[2016-10-27] MEDS: LEVEMIR (INSULIN DETEMIR) 1 UNITS/0.01ML SC SCH ×2 (00:36→22:43)
[2016-10-27] MEDS: NS 1,000 ML IV SCH ×3 (00:36→22:43)
[2016-10-27] MEDS ORDERED: VANCOMYCIN HCL 1,000 MG, VIAL MATE ADAPTER 1 EACH in D5W 250 ML IV SCH (01:00)
[2016-10-27] MEDS ORDERED: HumaLOG INSULIN (NovoLOG) PER UNIT SC ONE ×2 (01:00→04:00)
--- NOTE | 2016-10-27 03:34 | CR ---
DATE OF CONSULTATION: 10/27/2016 SUBJECTIVE: I was consulted by the emergency room physician to evaluate this patient. He had been admitted by the hospitalist service for fever with presumed bacteremia. He is approximately one month status post cemented left hip hemiarthroplasty done by Dr. Emir sahu. The emergency room physician evaluated the wound and felt that there was some warmth and erythema and obtained a CT which showed possible fluid collection, possible gas in the area of the incision, and I was consulted to evaluate this. The patient is nonresponsive and there was no other family members present to provide a medical history. OBJECTIVE: Awake and alert, responsive male resting comfortably in bed. He is unable to respond to commands. Focused examination of his left hip area: There is a well-healed longitudinal surgical incision consistent with his previous hemiarthroplasty. There is no active wound drainage. There is significant surrounding erythema, induration, and palpable fluid collection. I did view the ultrasound as well with the large fluid collection present just deep to the surgical incision distally. He has 1+ dorsalis pedis and posterior tibialis pulse. The toes are pink, warm and well-perfused. He does slightly flex and extend the toes, but again is unable to follow commands. The CT of the abdomen and pelvis and the followup ultrasound show the well-seated left hip hemiarthroplasty with significant surrounding fluid collection and possible small gas pockets, other chronic age-related changes, as above. ASSESSMENT: Likely septic hemiarthroplasty on the left. Using a sterile technique, I did aspirate approximately 5 mL of dafne pus out of the area of the surgical incision. This was just about 2 cm deep to the skin. This was sent for cultures and gram stain. PLAN: At this point, he will be admitted, started on broad-spectrum IV antibiotics. He will undergo medical clearance in preparation for likely head and liner exchange with incision and drainage of the hip joint. Currently, he is medically stable and we will plan to go forward with the operation likely within the next few hours or so. I did review his medical chart for his vital signs and his lab results which are available for review.
[2016-10-27] MEDS: LEVOTHYROXINE 0.05 MG TAB (50 MCG) PO SCH (05:52)
--- NOTE | 2016-10-27 05:56 | ECGEPIP ---
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
[2016-10-27 07:15] LABS: MEAN CORPUSCULAR HEMOGLOBIN 32.3 pg (27.0-33.0); MEAN CORPUSCULAR HGB CONC 32.3 g/dl (32.0-36.5); MEAN CORPUSCULAR VOLUME 99.9 fl (80.0-96.0); RED CELL DISTRIBUTION WIDTH 14.5 % (11.5-14.5); WHITE BLOOD COUNT 10.6 K/mm3 (4.0-10.0)
[2016-10-27 07:34] LABS: ANION GAP 8 MEQ/L (8-16); BLOOD UREA NITROGEN 73 MG/DL (7-18); CALCIUM LEVEL 8.3 MG/DL (8.8-10.2); CARBON DIOXIDE LEVEL 25 MEQ/L (21-32); CHLORIDE LEVEL 109 MEQ/L (98-107); CHOLESTEROL LEVEL 81 MG/DL (<200); CREATININE FOR GFR 1.27 MG/DL (0.70-1.30); FERRITIN 535 NG/ML (26-388); GLOMERULAR FILTRATION RATE 57.1 (>35); GLUCOSE, FASTING 194 MG/DL (83-110); PERCENT SATURATION 8.9 % (19.7-37.4); POTASSIUM SERUM 4.5 MEQ/L (3.5-5.1); SODIUM LEVEL 142 MEQ/L (136-145); TOTAL IRON BINDING CAPACITY 190 UG/DL (250-450); TRIGLYCERIDES LEVEL 43 MG/DL (<150)
--- NOTE | 2016-10-27 08:02 | REP ---
Clinical: Sepsis. Comparison: 09/22/2016. Findings: Examination is limited by portable technique and underpenetration. Mediastinum and cardiac silhouette are stable with mild cardiomegaly suggested and evidence for prior sternotomy and CABG. Partially calcified pleural plaques noted along with diffuse chronic interstitial changes. Subtle basilar atelectasis cannot be excluded. Impression: Chronic changes. Cannot exclude basilar atelectasis. Signed by Marvin Miller MD 10/27/2016 07:53 A
[2016-10-27] MEDS: ASPIRIN 81 MG CHEW TABLET PO SCH (09:50)
[2016-10-27] MEDS: FINASTERIDE 5 MG TAB PO SCH (09:51)
[2016-10-27] MEDS: SENOKOT S TAB PO SCH ×3 (09:51→22:43)
[2016-10-27] MEDS: rOPINIRole 1MG TAB PO SCH ×3 (09:51→22:43)
[2016-10-27] MEDS: PRIMIDONE 50 MG TAB PO SCH ×3 (09:51→22:43)
[2016-10-27] MEDS: FERROUS SULFATE 325MG TAB PO SCH (09:51)
[2016-10-27] MEDS: MIRALAX *UNIT DOSE* 17GM PACKET PO SCH (09:51)
[2016-10-27] MEDS: CYANOCOBALAMIN 500 MCG TAB PO SCH (09:52)
[2016-10-27] MEDS: OLANZapine 5 MG TAB PO SCH (09:52)
[2016-10-27] MEDS: METOPROLOL SUCC (TopROL XL) 50MG **XL** TAB PO SCH (09:52)
[2016-10-27] MEDS: MULTIVITAMINS/MINERALS THERAP 1 TAB PO SCH (09:52)
[2016-10-27] MEDS: POLYVINYL ALCOHOL OPHTH SOLN 15 ML(LIQUITEARS) OU SCH (11:33)
[2016-10-27 11:38] LABS: VITAMIN B12 LEVEL 576 PG/ML (247-911)
[2016-10-27 11:39] LABS: FOLATE 21.7 NG/ML (>5.4)
[2016-10-27] MEDS ORDERED: ACETAMINOPHEN 650 MG SUPP PR PRN (12:30)
[2016-10-27] MEDS: VANCOMYCIN HCL 750 MG, VIAL MATE ADAPTER 1 EACH in D5W 250 ML IV SCH (12:48)
--- NOTE | 2016-10-27 12:58 | IPN ---
DATE: 10/27/2016 Patient is sleepy but arousable. He knows that he is in the hospital. Does not know who the president is. Does not know what the year is. His is at bedside and seems to think this is his baseline. He is not complaining of any pain, chest pain or shortness of breath. Temperature 99.4, pulse 84, respiratory rate 18, blood pressure 151/64, 98% on room air. Intake and output notable for a positive fluid balance of 500. No bowel movements. Weight is 72.5 kilos. Body mass index (BMI) 22.4. He is awake and following commands. Mucous membranes moist. Neck is supple. Breathing is symmetrical. I-to-E ratio is 1:3, diminished throughout. Heart is distant sounding. Abdomen is soft, doughy, nontender. Lateral hip is erythematous, warm, red and nontender. White cell count 10.6, hemoglobin 7.1, and platelets are 361. ESR is 126. BUN is 73. Creatinine is 1.27. Hemoglobin A1c is 8.8. Iron 17, TIBC 190, ferritin 535, C-reactive protein 27. This is an 85-year-old with infected left prosthesis, known Methicillin- resistant Staphylococcus aureus (MRSA) bacteremia from 10/24. Plan will be as follows: 1. Infectious disease. The patient has been started on appropriate antibiotics. Await repeat blood cultures. Will need to go to the operating room (OR) for debridement of his left hip. I have discussed this case in person with Dr. Jimy Field and at length with his at bedside. The patient is an add on for later today. Will consult Dr. Garcia when she is available. We could discuss the case in general with her, but she is not available for consultation until early next week. 2. The patient has severe anemia. This would appear to be anemia of chronic disease, but at this point I believe he would benefit from transfusion having obtained informed consent from his at bedside and will transfuse 2 units of blood preoperatively as there is risk of blood loss during the procedure. 3. 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 He appears to be generally failing with bilateral heal ulcers, sacral decubitus ulcers. He has had decreasing level of interaction and failure to thrive. 4. The patient has insulin dependent diabetes currently on sliding scale. 5. The patient had acute kidney injury at the time of presentation, which has improved at this point. 6. The patient had difficulty swallowing this morning and had some coughing after taking pills. I have held the rest of his medications including his beta blockade in the preoperative setting. May require a swallow evaluation tomorrow. I would like to continue the beta blockade postoperatively if we are able to. 7. Deep vein thrombosis (DVT) prophylaxis will be chemical and started postoperatively. Mechanical DVT prophylaxis is relatively contraindicated based on his lower extremity ulcers. 8. The patient does not need further urgent surgical intervention in order to begin to treat his underlying infection. I have discussed this case with his at bedside. There is little to do in the perioperative setting to ensure a safer operative outcome apart from preoperative transfusion and continuing beta blockade as able in the postoperative setting. At this point, the patient would be optimized for this urgent procedure. MARIANA
[2016-10-27] MEDS ORDERED: ceFAZolin 1GM INJ (J0690) As Ordered ONE (14:17)
[2016-10-27] MEDS ORDERED: PROPOFOL 200 MG/20 ML VIAL As Ordered ONE (15:09)
[2016-10-27] MEDS ORDERED: LIDOCAINE 2% INJ 100 MG/5 ML SDV (FOR ANES.) As Ordered ONE (15:09)
[2016-10-27] MEDS ORDERED: fentaNYL 100 MCG/2 ML INJECTION (J3010) As Ordered ONE (15:09)
[2016-10-27] MEDS ORDERED: ROCURONIUM BROMIDE 50 MG/5 ML VIAL As Ordered ONE (15:09)
[2016-10-27] MEDS ORDERED: MIDAZOLAM INJ 2 MG/2 ML VIAL (J2250) As Ordered ONE (15:09)
[2016-10-27] MEDS ORDERED: DESFLURANE 240 ML INHALANT As Ordered ONE (16:54)
[2016-10-27] MEDS ORDERED: TOBRAMYCIN SULF 1.2 GM VIAL As Ordered ONE ×3 (16:55→18:48)
[2016-10-27] MEDS ORDERED: VANCOMYCIN 1000 MG/20 ML VIAL (J3370) As Ordered ONE ×2 (16:55→18:22)
[2016-10-27] MEDS ORDERED: HYDROmorphone HCL 2 MG/ML 1ML VIAL (J1170) As Ordered ONE (17:01)
[2016-10-27] MEDS ORDERED: PHENYLephrine HCL 500 MCG/5 ML (100MCG/ML) SYRINGE (J2370) As Ordered ONE (18:14)
[2016-10-27] MEDS ORDERED: ONDANSETRON 4MG/2ML VIAL (J2405) As Ordered ONE (18:17)
[2016-10-27] MEDS ORDERED: SUCCINYLCHOLINE 100 MG/5 ML SYRINGE (J0330) As Ordered ONE (18:17)
[2016-10-27] MEDS ORDERED: LR 1,000 ML IV SCH (20:00)
[2016-10-27] MEDS ORDERED: ONDANSETRON 4MG/2ML VIAL (J2405) IV PRN (20:00)
[2016-10-27] MEDS ORDERED: fentaNYL 100 MCG/2 ML INJECTION (J3010) IV PRN (20:00)
[2016-10-27] MEDS ORDERED: PERCOCET 5MG/325MG TAB PO PRN (20:00)
[2016-10-27] MEDS ORDERED: MEPERIDINE INJ 25 MG/ML VIAL (J2175) IV PRN (20:00)
[2016-10-27] MEDS ORDERED: METOCLOPRAMIDE INJ 10MG/2ML VIAL (J2765) IV PRN (20:00)
[2016-10-27 20:10] LABS: MEAN CORPUSCULAR HEMOGLOBIN 30.7 pg (27.0-33.0); MEAN CORPUSCULAR HGB CONC 31.8 g/dl (32.0-36.5); MEAN CORPUSCULAR VOLUME 96.4 fl (80.0-96.0); RED CELL DISTRIBUTION WIDTH 15.9 % (11.5-14.5); WHITE BLOOD COUNT 11.2 K/mm3 (4.0-10.0)
[2016-10-27] MEDS: HEPARIN SOD (PORCINE) 5000 UNITS/ML VIAL SC SCH ×2 (21:47→22:43)
--- NOTE | 2016-10-27 22:27 | RO ---
DATE OF PROCEDURE: 10/27/2016 PREPROCEDURE DIAGNOSIS: Infected left hip hemiarthroplasty. POSTPROCEDURE DIAGNOSIS: Infected left hip hemiarthroplasty. OPERATIVE PROCEDURE: 1. Removal of left hip hemiarthroplasty. 2. Removal of the cement and cement spacer from the left femoral shaft. 3. Total hip replacement using a antiobiotic cement-coated size #4 Elliott stem with a cemented 48 mm acetabular liner with a 32 mm +9 femoral head. SURGEON: Evi Field MD INVENTORY CONTROL SPECIALIST: Bhavesh Kumar MD ANESTHESIA: General endotracheal tube. COMPLICATIONS: None. ESTIMATED BLOOD LOSS: About 500 mL. FINDINGS: There was gross dafne pus in the superficial tissues tracking down into the joint and as I attempted to extract the femoral head from the unipolar device, the entire stem came loose from the cement mantle and at that point it was felt best to for the patient to remove the rest of the cement and the cement spacer and proceed with a Prostalac type antibiotic cement spacer hip replacement. DRAINS: There was one deep drain in the hip joint and the one superficial drain underneath the tensor fascia. DESCRIPTION OF PROCEDURE: After successful general endotracheal anesthetic had been established, he was placed in the lateral decubitus position on a blevins bag. Axillary roll was utilized, down leg well padded. The left hip area was then prepped and draped in the usual sterile fashion after appropriate time out. We opened the incision and came across dafne purulent material which was sent for anaerobic and aerobic cultures. We then divided the tensor fascia. There was pus underneath the fascia as well. We then divided the previous abductor lateral approach incision and exposed the underlying hip joint and we copiously irrigated. A synovectomy was performed as best as possible to remove any necrotic debris with a rongeur and then once we had adequate exposure I dislocated the hip anteriorly, placed the leg in a leg bag anteriorly. I then used a bone tamp to try to remove the femoral head and as I did so the prosthesis came out within the cement mantle. I then removed the entire prosthesis and then at this point the decision was made to proceed with an antibiotic cement spacer. We removed all the cement by painstakingly using the [employer] instrument tray with various sharp osteotomes and reverse curettes and drills. I used a headlamp and a stool and looked directly down the femoral shaft and carefully and meticulously removed the cement, taking great care to not violate the femoral cortex. Eventually we felt we were able to remove all the cement and the cement plug distally and then we copiously pulsatile lavage irrigated out the femoral canal. I also used the canal brush device as well to make sure it was nice and clean. Then, we elected to go ahead with a cement spacer device. We first addressed the acetabulum and labral excision was performed 360 degrees and then I used first a 48 mm reamer, then a 50 mm reamer just to remove some of the articular cartilage, such that the cement would have a bit of a dry mop maker into the acetabulum. I then mixed one bag of antiobiotic cement adding an additional 3.6 grams of tobramycin and 1 gram vancomycin. Once it was mixed, I placed it in the doughy stage into the depth of the acetabulum after copiously pulsatile irrigating it and then placed the 48 mm liner and set it down into the cement and just let it sit. I did not expect it to become rigidly affixed at all, just to act as a spacer to articulate against the femoral head. Once that was hardening, I then exposed the proximal femur once again and then we mixed two bags of cement, each one came with 1.2 grams of tobramycin and added an additional 3.6 grams of tobramycin and 1 gram of vancomycin into each bag. That was mixed, and then in a doughy stage I wrapped a size #4 Elliott stem entirely with this doughy cement and then once it was in the doughy stage, I then implanted it down into the femoral canal and held it into appropriate version and position until the cement hardened. An attempt was not made for rigid fixation, but just enough for a cement spacer in case we come back and do a revision replacement at a later date. Once the cement had hardened, I then trialed with a +5 head. It fit fairly well, but I felt it would be best for added stability to help prevent dislocation, in this case it helped keep the prosthetic components in position, I used a +9. Thus the +9 x 32 mm diameter head was placed on the trunnion and I reduced the hip and it was actually remarkably stable with flexion internal rotation and extension external rotation. At this point then we copiously irrigated once again and closed the abductors back anatomically with interrupted #1 PDS sutures after placing a drain deep in the hip joint. Then, I placed another drain superficial to the abductors but beneath the tensor fascia and then closed the tensor fascia with interrupted #1 PDS sutures, irrigated between layers, closed the deep subdermal sutures with interrupted #2-0 PDS sutures, skin was closed with allen, covered by Adaptic dry sterile bulky dressing. Then he was turned supine, and we just used pillows for an abducted pillow brace because we did not have the triangle pillow. He was transferred to the recovery room in stable condition. Dr. Bhavesh Kumar was critical to the success of the procedure which was a very difficult procedure by helping to manipulate the leg as needed, help with soft tissue retractors and helped to close the wound and many other aspects of this difficult operation.
[2016-10-27] MEDS: SIMVASTATIN 10 MG TAB PO SCH ×2 (22:42→22:43)
[2016-10-28 00:30] VITALS: BP 121/61
[2016-10-28] MEDS: VANCOMYCIN HCL 750 MG, VIAL MATE ADAPTER 1 EACH in D5W 250 ML IV SCH ×2 (00:56→12:16)
[2016-10-28] MEDS: HumaLOG INSULIN (NovoLOG) PER UNIT SC SCH ×6 (00:57→20:19)
--- NOTE | 2016-10-28 01:05 | PHACANCOPD ---
PHARMACY VANCOMYCIN DOSING Pt Demographics Demographics Patient Age:85 , Weight:70.800 , Gender: male Adjusted Body Weight Date: 10/27/16, Adjusted Body Weight: [72.6] Kg Events Past 24 Hours Events Past 24 Hours: NO: Change in CrCl, Dialysis, Diuretic Therapy, Elevation in WBC, Fever, Other, Pending Diagnostics, Pending Procedures Vancomycin Vancomycin Target Ranges: 15-20 mcg/ml Vancomycin Load Y/N: No Load Dose Date Time Vancomycin Load Dose: Date: Time: Vancomycin Dose Date: 10/27/16. Current Vancomycin Dose: [750MG Q12H] Intermittent Dosing?: No Labs Labs Item Value Date Time Vancomycin Level Trough 17.0 UG/ML 10/27/16 2349 Creatinine 1.27 MG/DL 10/27/16 0652 White Blood Count 11.2 K/mm3 H 10/27/16 1959 Vital Signs Label Value Date Time Patient Temperature 97.8 degrees F 10/27/16 2330 Temperature Source Temporal 10/27/16 2330 Micro Microbiology 10/26/16 Blood Culture - Preliminary, Resulted No growth after 24 hours . All specim... 10/26/16 Blood Culture - Preliminary, Resulted No growth after 24 hours . All specim... 10/26/16 Influenza Virus Type A Antigen - Final, Complete 10/26/16 Influenza Virus Type B Antigen - Final, Complete 10/26/16 Urine Culture, Received Pending 10/27/16 Gram Stain, Received Pending 10/27/16 Wound Culture, Received Pending 10/27/16 Anaerobic Culture, Received Pending 10/27/16 Anaerobic Culture, Received Pending 10/27/16 Gram Stain - Final, Resulted 10/27/16 Abscess Culture, Resulted Pending Creatinine Clearance Date:10/27/16. Creatinine Clearance: [40]. Assessment and Plan Maintaining Current Dose?: Yes Reason for dose change: No Dose Change Pharmacist Note Pharmacist Note Date: 10/27/16. Pharmacist note:Trough of 17 is within target range. Will continue current dosing. Will continue to monitor and maje adjustments as needed. SYLVIA NINA PHARMACY Oct 28, 2016 01:05
[2016-10-28 04:00] VITALS: BP 141/67
[2016-10-28 04:43] LABS: MEAN CORPUSCULAR HEMOGLOBIN 31.5 pg (27.0-33.0); MEAN CORPUSCULAR HGB CONC 33.4 g/dl (32.0-36.5); MEAN CORPUSCULAR VOLUME 94.2 fl (80.0-96.0); RED CELL DISTRIBUTION WIDTH 15.6 % (11.5-14.5); WHITE BLOOD COUNT 10.4 K/mm3 (4.0-10.0)
[2016-10-28 05:04] LABS: ANION GAP 7 MEQ/L (8-16); BLOOD UREA NITROGEN 54 MG/DL (7-18); CALCIUM LEVEL 7.4 MG/DL (8.8-10.2); CARBON DIOXIDE LEVEL 25 MEQ/L (21-32); CHLORIDE LEVEL 111 MEQ/L (98-107); CREATININE FOR GFR 0.98 MG/DL (0.70-1.30); GLOMERULAR FILTRATION RATE > 60.0 (>35); GLUCOSE, FASTING 253 MG/DL (83-110); POTASSIUM SERUM 4.3 MEQ/L (3.5-5.1); SODIUM LEVEL 143 MEQ/L (136-145)
[2016-10-28] MEDS: LEVOTHYROXINE 0.05 MG TAB (50 MCG) PO SCH (05:42)
[2016-10-28] MEDS: HEPARIN SOD (PORCINE) 5000 UNITS/ML VIAL SC SCH ×3 (05:42→20:20)
[2016-10-28 07:30] VITALS: BP 128/67
--- NOTE | 2016-10-28 08:18 | REP ---
Clinical: Status post left to hip replacement. Technique: AP and cross-table lateral views. Findings: The patient is noted to be status post left hip arthroplasty with normal appearance and positioning to the femoral and acetabular components. Overlying postsurgical changes are appreciated. Impression: Normal status post left hip arthroplasty. Signed by Marvin Miller MD 10/28/2016 08:10 A
[2016-10-28] MEDS: MIRALAX *UNIT DOSE* 17GM PACKET PO SCH (08:47)
[2016-10-28] MEDS: METOPROLOL SUCC (TopROL XL) 50MG **XL** TAB PO SCH (08:48)
[2016-10-28] MEDS: OLANZapine 5 MG TAB PO SCH (08:49)
[2016-10-28] MEDS: MULTIVITAMINS/MINERALS THERAP 1 TAB PO SCH (08:49)
[2016-10-28] MEDS: PRIMIDONE 50 MG TAB PO SCH ×2 (08:49→20:18)
[2016-10-28] MEDS: ASPIRIN 81 MG CHEW TABLET PO SCH (08:49)
[2016-10-28] MEDS: rOPINIRole 1MG TAB PO SCH ×2 (08:49→20:18)
[2016-10-28] MEDS: CYANOCOBALAMIN 500 MCG TAB PO SCH (08:49)
[2016-10-28] MEDS: FINASTERIDE 5 MG TAB PO SCH (08:49)
[2016-10-28] MEDS: SENOKOT S TAB PO SCH ×2 (08:49→20:18)
[2016-10-28] MEDS: FERROUS SULFATE 325MG TAB PO SCH (08:49)
[2016-10-28] MEDS: POLYVINYL ALCOHOL OPHTH SOLN 15 ML(LIQUITEARS) OU SCH ×2 (09:00→17:04)
[2016-10-28] MEDS ORDERED: SLF 3 ML SYR IV PRN (10:30)
[2016-10-28 12:00] VITALS: BP 125/64
[2016-10-28] MEDS: SLF 3 ML SYR IV SCH ×2 (12:16→20:20)
[2016-10-28 16:00] VITALS: BP 138/61
--- NOTE | 2016-10-28 17:04 | IPN ---
DATE: 10/28/2016 Mr. Pickens has no complaints of pain, chest pain, or shortness of breath but he is a relatively poor historian. He had a relatively complicated surgical course last night which I discussed in person with Dr. Jimy Field. Temperature 99.8, pulse 85, respiratory rate 20, blood pressure 128/67, 97% on room air. Intake and output notable for a negative fluid balance of -2298. No bowel movements noted. He is awake and appropriately interactive. Mucous membranes moist. Neck is supple. Breathing is symmetrical. I-to-E ratio is 1:4, diminished. Heart is distant sounding. Normal S1, S2. Abdomen is soft, doughy, nontender. White cell count 10.4, hemoglobin 8.8, and platelets are 319. BUN is 54. Creatinine is 0.98. CRP 18.3. Repeat blood cultures are pending. ASSESSMENT: This is an 85-year-old with infected left prosthesis, with known Methicillin-resistant Staphylococcus aureus (MRSA) bacteremia from 10/24/2016. Postoperative day #1 from removal of that prosthesis. Plan will be as follows: 1. Infectious disease. The patient is on appropriate broad spectrum antibiotics. Awaiting repeat cultures. Can likely be treated with vancomycin alone. Await wound cultures to make that decision. Will consult Dr. Garcia when she is available. I anticipate her return on 11/01/2016. We will need her assistance with longterm plan. 2. The patient has severe anemia. Has received transfusion. A total of 3 units during his stay. Hemoglobin and hematocrit appears stable at this point. Will monitor clinically. 3. The patient has Parkinson's disease and Parkinson's dementia. I am concerned a little bit of about his swallowing and swallow evaluation has been ordered which will likely be available tomorrow. 4. The patient has insulin dependent diabetes on sliding scale. 5. The patient had acute kidney injury at the time of presentation, which is improving. 7. Patient has appropriate deep vein thrombosis (DVT) prophylaxis. 8. Patient is going to have a prolonged orthopedic course.
[2016-10-28 19:39] VITALS: BP 125/62
[2016-10-28] MEDS: SIMVASTATIN 10 MG TAB PO SCH (20:18)
[2016-10-28] MEDS: LEVEMIR (INSULIN DETEMIR) 1 UNITS/0.01ML SC SCH (20:20)
[2016-10-29] VITALS: BP 133/67
[2016-10-29] MEDS: VANCOMYCIN HCL 750 MG, VIAL MATE ADAPTER 1 EACH in D5W 250 ML IV SCH ×2 (01:55→14:28)
[2016-10-29 04:00] VITALS: BP 155/75
[2016-10-29 05:43] LABS: MEAN CORPUSCULAR HEMOGLOBIN 32.1 pg (27.0-33.0); MEAN CORPUSCULAR HGB CONC 33.7 g/dl (32.0-36.5); MEAN CORPUSCULAR VOLUME 95.2 fl (80.0-96.0); RED CELL DISTRIBUTION WIDTH 15.6 % (11.5-14.5); WHITE BLOOD COUNT 8.9 K/mm3 (4.0-10.0)
[2016-10-29] MEDS: SLF 3 ML SYR IV SCH ×3 (05:46→20:43)
[2016-10-29] MEDS: HEPARIN SOD (PORCINE) 5000 UNITS/ML VIAL SC SCH ×3 (05:46→20:25)
[2016-10-29] MEDS: LEVOTHYROXINE 0.05 MG TAB (50 MCG) PO SCH (05:46)
[2016-10-29 05:54] LABS: ANION GAP 8 MEQ/L (8-16); BLOOD UREA NITROGEN 48 MG/DL (7-18); CALCIUM LEVEL 7.7 MG/DL (8.8-10.2); CARBON DIOXIDE LEVEL 25 MEQ/L (21-32); CHLORIDE LEVEL 110 MEQ/L (98-107); CREATININE FOR GFR 0.88 MG/DL (0.70-1.30); GLOMERULAR FILTRATION RATE > 60.0 (>35); GLUCOSE, FASTING 218 MG/DL (83-110); SODIUM LEVEL 143 MEQ/L (136-145)
[2016-10-29 07:58] VITALS: BP 140/65
[2016-10-29] MEDS: HumaLOG INSULIN (NovoLOG) PER UNIT SC SCH ×4 (09:00→20:43)
[2016-10-29] MEDS: MIRALAX *UNIT DOSE* 17GM PACKET PO SCH (09:00)
[2016-10-29] MEDS: MULTIVITAMINS/MINERALS THERAP 1 TAB PO SCH (09:01)
[2016-10-29] MEDS: ASPIRIN 81 MG CHEW TABLET PO SCH (09:01)
[2016-10-29] MEDS: CYANOCOBALAMIN 500 MCG TAB PO SCH (09:01)
[2016-10-29] MEDS: FINASTERIDE 5 MG TAB PO SCH (09:01)
[2016-10-29] MEDS: METOPROLOL SUCC (TopROL XL) 50MG **XL** TAB PO SCH (09:01)
[2016-10-29] MEDS: FERROUS SULFATE 325MG TAB PO SCH (09:01)
[2016-10-29] MEDS: SENOKOT S TAB PO SCH ×2 (09:01→20:25)
[2016-10-29] MEDS: PRIMIDONE 50 MG TAB PO SCH ×2 (09:01→20:25)
[2016-10-29] MEDS: rOPINIRole 1MG TAB PO SCH ×2 (09:01→20:25)
[2016-10-29] MEDS: OLANZapine 5 MG TAB PO SCH (09:01)
[2016-10-29] MEDS: POLYVINYL ALCOHOL OPHTH SOLN 15 ML(LIQUITEARS) OU SCH (09:02)
[2016-10-29 14:00] VITALS: BP 159/71
--- NOTE | 2016-10-29 16:24 | IPN ---
DATE: 10/29/2016 Mr. Pickens is awake and answering simple questions. He does not appear uncomfortable. Temperature is 98.5, pulse is 77, respiratory rate 18, blood pressure 140/65, 97% on room air. Positive fluid balance of 890. No bowel movements. Breathing is symmetrical, rested. Inspiratory to expiratory (I-to-E) ratio is 1:3, diminished throughout. Heart is distant sounding. Normal S1, S2. Abdomen soft. Hypoactive bowel sounds. Nontender. Drains are in place in the left hip. White cell count 8.9, hemoglobin 8, platelets of 330. BUN 40, creatinine 0.88. Fingersticks are somewhat elevated. ASSESSMENT: This is an 85-year-old with infected left hip prosthetic, status post removal, postoperative day #2. PLAN: 1. Infectious disease. Patient is on appropriate broad-spectrum antibiotics. Wound culture results are pending, but he has previously grown methicillin-resistant Staphylococcus aureus (MRSA). Pending wound results, will probably focus his treatment to vancomycin only. 2. The patient has severe anemia, status post transfusion. Will monitor hemoglobin and hematocrit. Relatively stable at this point. 3. Patient has Parkinson's disease and Parkinson's dementia. He has had a swallow evaluation ordered, results of which are pending. 4. The patient has insulin-dependent diabetes. Will add some long-acting insulin. 5. Patient has acute kidney injury, which is improving. 6. Leukocytosis, improving. 7. Patient has appropriate deep vein thrombosis (DVT) prophylaxis. 8. Patient can be transferred to medical/surgical.
[2016-10-29] MEDS: LEVEMIR (INSULIN DETEMIR) 1 UNITS/0.01ML SC SCH (20:25)
[2016-10-29] MEDS: SIMVASTATIN 10 MG TAB PO SCH (20:25)
[2016-10-29 22:00] VITALS: BP 144/66
[2016-10-30] MEDS: VANCOMYCIN HCL 750 MG, VIAL MATE ADAPTER 1 EACH in D5W 250 ML IV SCH ×2 (01:38→12:22)
[2016-10-30] MEDS: LEVOTHYROXINE 0.05 MG TAB (50 MCG) PO SCH (05:49)
[2016-10-30] MEDS: SLF 3 ML SYR IV SCH ×3 (05:50→22:06)
[2016-10-30 06:00] VITALS: BP 137/76
[2016-10-30] MEDS: HEPARIN SOD (PORCINE) 5000 UNITS/ML VIAL SC SCH ×3 (06:26→22:04)
[2016-10-30 06:50] LABS: MEAN CORPUSCULAR HEMOGLOBIN 31.3 pg (27.0-33.0); MEAN CORPUSCULAR HGB CONC 32.8 g/dl (32.0-36.5); MEAN CORPUSCULAR VOLUME 95.7 fl (80.0-96.0); RED CELL DISTRIBUTION WIDTH 15.3 % (11.5-14.5); WHITE BLOOD COUNT 9.6 K/mm3 (4.0-10.0)
[2016-10-30 07:08] LABS: ANION GAP 10 MEQ/L (8-16); BLOOD UREA NITROGEN 40 MG/DL (7-18); CALCIUM LEVEL 7.8 MG/DL (8.8-10.2); CARBON DIOXIDE LEVEL 25 MEQ/L (21-32); CHLORIDE LEVEL 106 MEQ/L (98-107); CREATININE FOR GFR 0.93 MG/DL (0.70-1.30); GLOMERULAR FILTRATION RATE > 60.0 (>35); GLUCOSE, FASTING 250 MG/DL (83-110); POTASSIUM SERUM 3.7 MEQ/L (3.5-5.1); SODIUM LEVEL 141 MEQ/L (136-145)
[2016-10-30] MEDS: SENOKOT S TAB PO SCH ×2 (08:35→22:06)
[2016-10-30] MEDS: ASPIRIN 81 MG CHEW TABLET PO SCH (08:35)
[2016-10-30] MEDS: OLANZapine 5 MG TAB PO SCH (08:35)
[2016-10-30] MEDS: MULTIVITAMINS/MINERALS THERAP 1 TAB PO SCH (08:35)
[2016-10-30] MEDS: METOPROLOL SUCC (TopROL XL) 50MG **XL** TAB PO SCH (08:35)
[2016-10-30] MEDS: FINASTERIDE 5 MG TAB PO SCH (08:35)
[2016-10-30] MEDS: rOPINIRole 1MG TAB PO SCH ×2 (08:35→22:05)
[2016-10-30] MEDS: POLYVINYL ALCOHOL OPHTH SOLN 15 ML(LIQUITEARS) OU SCH (08:36)
[2016-10-30] MEDS: PRIMIDONE 50 MG TAB PO SCH ×2 (08:36→22:05)
[2016-10-30] MEDS: MIRALAX *UNIT DOSE* 17GM PACKET PO SCH (08:36)
[2016-10-30] MEDS: CYANOCOBALAMIN 500 MCG TAB PO SCH (08:36)
[2016-10-30] MEDS: FERROUS SULFATE 325MG TAB PO SCH (08:36)
[2016-10-30] MEDS: HumaLOG INSULIN (NovoLOG) PER UNIT SC SCH ×4 (08:37→20:36)
--- NOTE | 2016-10-30 10:58 | PHACANCOPD ---
PHARMACY VANCOMYCIN DOSING Pt Demographics Demographics Patient Age:85 , Weight:96.300 , Gender: male Adjusted Body Weight Date: 10/27/16, Adjusted Body Weight: [72.6] Kg Vancomycin Vancomycin Target Ranges: 15-20 mcg/ml Vancomycin Load Y/N: No Load Dose Date Time Vancomycin Load Dose: Date: Time: Vancomycin Dose Date: 10/27/16. Current Vancomycin Dose: [750MG Q12H] Intermittent Dosing?: No Labs Micro Microbiology 10/28/16 Blood Culture - Final, Complete Staph.aureus Methicillin Resis 10/28/16 Blood Culture - Final, Complete Staph.aureus Methicillin Resis 10/26/16 Blood Culture - Final, Complete Staph.aureus Methicillin Resis 10/26/16 Blood Culture - Final, Complete Staph.aureus Methicillin Resis 10/26/16 Influenza Virus Type A Antigen - Final, Complete 10/26/16 Influenza Virus Type B Antigen - Final, Complete 10/26/16 Urine Culture - Final, Complete 10/27/16 Gram Stain - Final, Complete 10/27/16 Wound Culture - Final, Complete Staph.aureus Methicillin Resis 10/27/16 Anaerobic Culture - Final, Complete 10/27/16 Anaerobic Culture - Final, Complete 10/27/16 Gram Stain - Final, Complete 10/27/16 Abscess Culture - Final, Complete Staph.aureus Methicillin Resis Creatinine Clearance Date:10/27/16. Creatinine Clearance: [40]. Pending Labs Vancomycin trough scheduled 10/31/16 @1200 Assessment and Plan Maintaining Current Dose?: Yes Reason for dose change: No Dose Change Pharmacist Note Pharmacist Note 10/30/16: Day #5 vancomycin therapy for infected left hip prosthesis now s/p removal POD#3. Blood and wound cultures have resulted positive growth for MRSA sensitive to vancomycin with an ALBINO<0.5. WBC is currently WNL, CRP is still elevated but is trending down, and patient has been febrile within the past 24 hours. The patient's serum creatinine has improved greatly since initial trough level from 1.27 to 0.93 today. I have scheduled a trough to be drawn 10/31/16 @ 1200 to ensure that we are maintaining adequate trough levels. We will continue to monitor and make adjustments as needed. Date: 10/27/16. Pharmacist note:Trough of 17 is within target range. Will continue current dosing. Will continue to monitor and maje adjustments as needed. [facility] Oct 30, 2016 10:58
--- NOTE | 2016-10-30 11:39 | IPN ---
DATE OF SERVICE: 10/30/2016 Mr. Pickens is awake and appropriately interactive this morning. Not with any complaint. He is a poor historian but certainly is more interactive than previously. No issues noted by staff. Temperature this morning is 100, pulse is 77, respiratory rate 14, blood pressure 137/76, 97% on room air. Intake and output (I and O) notable for a positive fluid balance of 1290. Two bowel movements thus far today. He is awake, appropriately interactive, answering simple questions. Mucous membranes are moist. Neck is supple. Breathing is symmetrically rested but diminished. No upper airway sounds. No wheezes. No accessory muscle use. Heart is not tachycardic. Regular rate and rhythm. Radial pulses 2+. Abdomen soft. Hypoactive bowel sounds. Nontender. Drains are in place for the left hip. White cell count 9.6, hemoglobin 8.2, platelets of 373. Creatinine 0.9. CRP is 14.4. My assessment is as follows: This is an 85-year-old with infected left prosthetic hip with methicillin-resistant Staphylococcus aureus (MRSA) and MRSA bacteremia, status post removal, postoperative day #3. The plan is as follows: 1. Infectious disease. The patient is continued on vancomycin. Continuing current care. Plans for infectious disease consult on 11/01/2016. The patient will need a peripherally inserted central catheter (PICC) line when blood cultures are negative. They were still positive on 10/28/2016. May require a transesophageal echocardiogram (MARIAN), depending on his course. 2. The patient has severe anemia, status post transfusion. Continue to monitor hemoglobin and hematocrit. Relatively stable. No role for transfusion today. 3. The patient has Parkinson disease and Parkinson dementia. We do have some concerns about swallow and have the patient on a modified diet. Official swallow evaluation is pending. 4. The patient has insulin-dependent diabetes. Did start long-acting insulin. Fasting blood sugar was 250 this morning. If fingersticks continue to be elevated, will again increase insulin dosing. 5. The patient has acute kidney injury during the course of his presentation, which has improved and is at baseline.
[2016-10-30 14:00] VITALS: BP 158/77
[2016-10-30 22:00] VITALS: BP 141/67
[2016-10-30] MEDS: LEVEMIR (INSULIN DETEMIR) 1 UNITS/0.01ML SC SCH (22:04)
[2016-10-30] MEDS: SIMVASTATIN 10 MG TAB PO SCH (22:06)
[2016-10-30] MEDS: ACETAMINOPHEN TAB 650MG DOSE (2X325MG) PO PRN (23:16)
[2016-10-31] MEDS: VANCOMYCIN HCL 750 MG, VIAL MATE ADAPTER 1 EACH in D5W 250 ML IV SCH ×2 (01:34→14:21)
[2016-10-31 06:00] VITALS: BP 145/67
[2016-10-31] MEDS: LEVOTHYROXINE 0.05 MG TAB (50 MCG) PO SCH (06:03)
[2016-10-31] MEDS: SLF 3 ML SYR IV SCH ×3 (06:05→22:03)
[2016-10-31] MEDS: HEPARIN SOD (PORCINE) 5000 UNITS/ML VIAL SC SCH ×3 (06:05→22:00)
[2016-10-31 06:35] LABS: MEAN CORPUSCULAR HEMOGLOBIN 30.9 pg (27.0-33.0); MEAN CORPUSCULAR HGB CONC 31.9 g/dl (32.0-36.5); MEAN CORPUSCULAR VOLUME 96.7 fl (80.0-96.0); RED CELL DISTRIBUTION WIDTH 15.1 % (11.5-14.5); WHITE BLOOD COUNT 8.9 K/mm3 (4.0-10.0)
[2016-10-31 06:50] LABS: ANION GAP 9 MEQ/L (8-16); BLOOD UREA NITROGEN 33 MG/DL (7-18); CALCIUM LEVEL 7.5 MG/DL (8.8-10.2); CARBON DIOXIDE LEVEL 25 MEQ/L (21-32); CHLORIDE LEVEL 104 MEQ/L (98-107); CREATININE FOR GFR 0.82 MG/DL (0.70-1.30); GLOMERULAR FILTRATION RATE > 60.0 (>35); GLUCOSE, FASTING 157 MG/DL (83-110); POTASSIUM SERUM 3.5 MEQ/L (3.5-5.1); SODIUM LEVEL 138 MEQ/L (136-145)
[2016-10-31] MEDS: FINASTERIDE 5 MG TAB PO SCH (08:30)
[2016-10-31] MEDS: CYANOCOBALAMIN 500 MCG TAB PO SCH (08:30)
[2016-10-31] MEDS: SENOKOT S TAB PO SCH ×2 (08:30→22:01)
[2016-10-31] MEDS: HumaLOG INSULIN (NovoLOG) PER UNIT SC SCH ×4 (08:30→21:00)
[2016-10-31] MEDS: METOPROLOL SUCC (TopROL XL) 50MG **XL** TAB PO SCH (08:31)
[2016-10-31] MEDS: PRIMIDONE 50 MG TAB PO SCH ×2 (08:31→22:01)
[2016-10-31] MEDS: MULTIVITAMINS/MINERALS THERAP 1 TAB PO SCH (08:31)
[2016-10-31] MEDS: rOPINIRole 1MG TAB PO SCH ×2 (08:31→22:01)
[2016-10-31] MEDS: FERROUS SULFATE 325MG TAB PO SCH (08:31)
[2016-10-31] MEDS: POLYVINYL ALCOHOL OPHTH SOLN 15 ML(LIQUITEARS) OU SCH (08:31)
[2016-10-31] MEDS: MIRALAX *UNIT DOSE* 17GM PACKET PO SCH (08:31)
[2016-10-31] MEDS: OLANZapine 5 MG TAB PO SCH (08:31)
[2016-10-31] MEDS: ASPIRIN 81 MG CHEW TABLET PO SCH (08:31)
--- NOTE | 2016-10-31 08:50 | IPN ---
DATE: 10/31/2016 Mr. Pickens developed urinary retention overnight, retaining around 1000 mL of fluid. He had decreased oral intake as well. T-max overnight 101.4, T-current 98, pulse 69, respiratory rate 16, blood pressure 145/67, 99% on room air. Intake and output (I and O) notable for positive fluid balance of 1639. Three bowel movements yesterday. Weight is 78.3 kg, which is oddly enough 26 kg less than yesterday and therefore in some question. He is sleepy, but he easily aroused. Knows he is in the hospital. He is not complaining of pain or shortness of breath. Mucous membranes are tacky. Breathing is symmetrical, rested. Inspiratory to expiratory (I-to-E) ratio is 1:3. Heart: Normal. S1, S2. Abdomen is soft. Hyperactive bowel sounds, nontender. White cell count 8.9, hemoglobin 7.9, platelets 376. BUN 33, creatinine 0.82. Repeat blood cultures are pending. Blood cultures on the were positive two of two for Methicillin-resistant Staphylococcus aureus (MRSA). 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 Postoperative day #4. PLAN: 1. Infectious disease. The patient is continued on vancomycin. Repeating blood cultures today. Blood cultures have yet to clear. Most likely the patient will require a transesophageal echocardiogram (MARIAN). Infectious disease consult pending for tomorrow. The patient will get a PICC line when blood cultures are cleared for prolonged antibiotic therapy. Likely source of this infection is bilateral heel ulcers. 2. The patient has severe anemia. Status post transfusion. He is trending downward again. Will give another unit of blood today. 3. The patient has Parkinson's disease, Parkinson's dementia. The patient is on a modified diet with concerns about swallow. 4. The patient has insulin-dependent diabetes. Fingersticks yesterday in the low 200s. Fasting this morning is 157, which is an improvement. 5. The patient has resolved acute kidney injury.
[2016-10-31 14:00] VITALS: BP 150/65
--- NOTE | 2016-10-31 18:57 | PHACANCOPD ---
PHARMACY VANCOMYCIN DOSING Pt Demographics Demographics Patient Age:85 , Weight:70.300 , Gender: male Adjusted Body Weight Date: 10/27/16, Adjusted Body Weight: [72.6] Kg Vancomycin Vancomycin Target Ranges: 15-20 mcg/ml Vancomycin Load Y/N: No Load Dose Date Time Vancomycin Load Dose: Date: Time: Vancomycin Dose Date: 10/27/16. Current Vancomycin Dose: [750MG Q12H] Intermittent Dosing?: No Labs Micro Microbiology 10/31/16 Blood Culture, Received Pending 10/31/16 Blood Culture, Received Pending 10/28/16 Blood Culture - Final, Complete Staph.aureus Methicillin Resis 10/28/16 Blood Culture - Final, Complete Staph.aureus Methicillin Resis 10/26/16 Blood Culture - Final, Complete Staph.aureus Methicillin Resis 10/26/16 Blood Culture - Final, Complete Staph.aureus Methicillin Resis 10/31/16 Stool Occult Blood (ALBINO) - Final, Complete 10/26/16 Influenza Virus Type A Antigen - Final, Complete 10/26/16 Influenza Virus Type B Antigen - Final, Complete 10/26/16 Urine Culture - Final, Complete 10/27/16 Gram Stain - Final, Complete 10/27/16 Wound Culture - Final, Complete Staph.aureus Methicillin Resis 10/27/16 Anaerobic Culture - Final, Complete 10/27/16 Anaerobic Culture - Final, Complete 10/27/16 Gram Stain - Final, Complete 10/27/16 Abscess Culture - Final, Complete Staph.aureus Methicillin Resis Creatinine Clearance Date:10/27/16. Creatinine Clearance: [40]. Pending Labs Vancomycin trough scheduled 10/31/16 @1200 Assessment and Plan Maintaining Current Dose?: Yes Reason for dose change: No Dose Change Pharmacist Note Pharmacist Note 10/31/16: Re-timed vancomycin trough that was scheduled for 1300 today for 1300 tomorrow, 11/01/16, due to patient receiving blood transfusion at that time today. We will follow-up tomorrow when level results and adjust dose if needed. 10/30/16: Day #5 vancomycin therapy for infected left hip prosthesis now s/p removal POD#3. Blood and wound cultures have resulted positive growth for MRSA sensitive to vancomycin with an ALBINO<0.5. WBC is currently WNL, CRP is still elevated but is trending down, and patient has been febrile within the past 24 hours. The patient's serum creatinine has improved greatly since initial trough level from 1.27 to 0.93 today. I have scheduled a trough to be drawn 10/31/16 @ 1200 to ensure that we are maintaining adequate trough levels. We will continue to monitor and make adjustments as needed. Date: 10/27/16. Pharmacist note:Trough of 17 is within target range. Will continue current dosing. Will continue to monitor and maje adjustments as needed. [facility] Oct 31, 2016 18:56
[2016-10-31] MEDS: LEVEMIR (INSULIN DETEMIR) 1 UNITS/0.01ML SC SCH (21:00)
[2016-10-31 22:00] VITALS: BP 142/71
[2016-10-31] MEDS: SIMVASTATIN 10 MG TAB PO SCH (22:01)
[2016-11-01] MEDS: VANCOMYCIN HCL 750 MG, VIAL MATE ADAPTER 1 EACH in D5W 250 ML IV SCH ×2 (01:37→13:04)
[2016-11-01] MEDS: LEVOTHYROXINE 0.05 MG TAB (50 MCG) PO SCH (05:50)
[2016-11-01] MEDS: HEPARIN SOD (PORCINE) 5000 UNITS/ML VIAL SC SCH ×3 (05:50→21:56)
[2016-11-01] MEDS: SLF 3 ML SYR IV SCH ×3 (05:51→21:57)
[2016-11-01 06:00] VITALS: BP 174/78
[2016-11-01 06:35] LABS: MEAN CORPUSCULAR HEMOGLOBIN 31.1 pg (27.0-33.0); MEAN CORPUSCULAR HGB CONC 33.2 g/dl (32.0-36.5); MEAN CORPUSCULAR VOLUME 93.5 fl (80.0-96.0); RED CELL DISTRIBUTION WIDTH 15.2 % (11.5-14.5); WHITE BLOOD COUNT 9.2 K/mm3 (4.0-10.0)
[2016-11-01 06:56] LABS: ANION GAP 6 MEQ/L (8-16); BLOOD UREA NITROGEN 29 MG/DL (7-18); CALCIUM LEVEL 7.1 MG/DL (8.8-10.2); CARBON DIOXIDE LEVEL 27 MEQ/L (21-32); CHLORIDE LEVEL 103 MEQ/L (98-107); CREATININE FOR GFR 0.71 MG/DL (0.70-1.30); GLOMERULAR FILTRATION RATE > 60.0 (>35); GLUCOSE, FASTING 91 MG/DL (83-110); POTASSIUM SERUM 3.7 MEQ/L (3.5-5.1); SODIUM LEVEL 136 MEQ/L (136-145)
[2016-11-01] MEDS: HumaLOG INSULIN (NovoLOG) PER UNIT SC SCH ×4 (07:30→21:00)
[2016-11-01] MEDS: FERROUS SULFATE 325MG TAB PO SCH (08:45)
[2016-11-01] MEDS: MULTIVITAMINS/MINERALS THERAP 1 TAB PO SCH (08:45)
[2016-11-01] MEDS: PRIMIDONE 50 MG TAB PO SCH ×2 (08:46→21:55)
[2016-11-01] MEDS: ASPIRIN 81 MG CHEW TABLET PO SCH (08:46)
[2016-11-01] MEDS: METOPROLOL SUCC (TopROL XL) 50MG **XL** TAB PO SCH (08:46)
[2016-11-01] MEDS: MIRALAX *UNIT DOSE* 17GM PACKET PO SCH (08:46)
[2016-11-01] MEDS: CYANOCOBALAMIN 500 MCG TAB PO SCH (08:46)
[2016-11-01] MEDS: OLANZapine 5 MG TAB PO SCH (08:46)
[2016-11-01] MEDS: SENOKOT S TAB PO SCH ×2 (08:46→21:56)
[2016-11-01] MEDS: FINASTERIDE 5 MG TAB PO SCH (08:46)
[2016-11-01] MEDS: rOPINIRole 1MG TAB PO SCH ×2 (08:46→21:55)
[2016-11-01] MEDS: POLYVINYL ALCOHOL OPHTH SOLN 15 ML(LIQUITEARS) OU SCH (08:47)
--- NOTE | 2016-11-01 09:20 | IPN ---
DATE: 11/01/2016 The patient had an uneventful night. He had some decreased oral intake yesterday. He has no complaints of pain this morning. He knows that he is at the [facility] and appears to be a reasonable historian. Temperature is 98.7, pulse 74, respiratory rate 14, blood pressure 174/78, 96% on room air. That blood pressure represents a relative outlier. One bowel movement thus far today. Negative fluid balance yesterday, -135. He is sleepy, but easily aroused. Breathing is symmetrical and diminished in the bases, rested. No accessory muscle use. Speaking in sentences. HEART: Distant sounding. Normal S1, S2. Radial pulses 2+. Capillary refill is less than 2 seconds. ABDOMEN: Soft with active bowel sounds. White cell count 9.2, hemoglobin 9, platelets of 392, BUN 29, creatinine 0.7, C-reactive protein trending downward at 8.71. Repeat cultures from 10/31/2016 are negative at 24 hours. Repeat culture ordered 11/01/2016 as well and is pending. ASSESSMENT: This is an 85-year-old with infected left prosthetic hip with methicillin resistant Staphylococcus aureus (MRSA) and MRSA resistant bacteremia, status post removal of that hip, postoperative day #5. 1. Infectious disease. The patient is continued on vancomycin, repeat blood cultures are pending. We will have the infectious disease team see the patient today to help guide the care. 2. The patient had severe anemia status post transfusion yesterday. Hemoglobin and hematocrit responded appropriately. We will continue to monitor clinically. 3. The patient has Parkinson's disease and Parkinson's dementia. He is on a modified diet with concerns about his swallow. 4. The patient developed urinary retention during his stay, which was noted yesterday. Pierre catheter was in place and that will be continued for the foreseeable future. We will attempt a voiding trial in a few weeks, can likely start him on Flomax. He is already on Proscar. 5. The patient has insulin-dependent diabetes. Fingersticks are well controlled. We may actually have to loosen up his insulin coverage. We will monitor him today. Depending on his oral intake, this may or may not be the appropriate level of insulin coverage. 6. The patient has resolved acute kidney injury. The patient was discussed with covering orthopedic surgeon in person.
--- NOTE | 2016-11-01 13:20 | PHACANCOPD ---
PHARMACY VANCOMYCIN DOSING Pt Demographics Demographics Patient Age:85 , Weight:69.500 , Gender: male Adjusted Body Weight Date: 10/27/16, Adjusted Body Weight: [72.6] Kg Events Past 24 Hours Events Past 24 Hours: NO: Change in CrCl, Dialysis, Diuretic Therapy, Elevation in WBC, Fever, Other, Pending Diagnostics, Pending Procedures Vancomycin Vancomycin indication: Infected Left Hip Prosthesis/Sepsis Vancomycin Target Ranges: 15-20 mcg/ml Vancomycin Load Y/N: No Load Dose Date Time Vancomycin Load Dose: Date: Time: Vancomycin Dose Date: 11/01/16. Current Vancomycin Dose: [resched Vancomycin 750mg IV q12h@05] Date: 10/27/16. Current Vancomycin Dose: [750MG Q12H] Intermittent Dosing?: No Labs Labs Vital Signs Label Value Date Time Patient Temperature 98.9 degrees F 10/31/16 2200 Temperature Source Core 10/31/16 2200 Patient Temperature 98.7 degrees F 11/01/16 0600 Temperature Source Core 11/01/16 0600 Item Value Date Time White Blood Count 8.9 K/mm3 10/31/16 0602 White Blood Count 9.2 K/mm3 11/01/16 0617 Creatinine 0.82 MG/DL 10/31/16 0602 Creatinine 0.71 MG/DL 11/01/16 0617 Micro Microbiology 11/01/16 Blood Culture, Received Pending 11/01/16 Blood Culture, Received Pending 10/31/16 Blood Culture - Preliminary, Resulted 10/31/16 Blood Culture - Preliminary, Resulted 10/28/16 Blood Culture - Final, Complete Staph.aureus Methicillin Resis 10/28/16 Blood Culture - Final, Complete Staph.aureus Methicillin Resis 10/26/16 Blood Culture - Final, Complete Staph.aureus Methicillin Resis 10/26/16 Blood Culture - Final, Complete Staph.aureus Methicillin Resis 10/31/16 Stool Occult Blood (ALBINO) - Final, Complete 10/26/16 Influenza Virus Type A Antigen - Final, Complete 10/26/16 Influenza Virus Type B Antigen - Final, Complete 10/26/16 Urine Culture - Final, Complete 10/27/16 Gram Stain - Final, Complete 10/27/16 Wound Culture - Final, Complete Staph.aureus Methicillin Resis 10/27/16 Anaerobic Culture - Final, Complete 10/27/16 Anaerobic Culture - Final, Complete 10/27/16 Gram Stain - Final, Complete 10/27/16 Abscess Culture - Final, Complete Staph.aureus Methicillin Resis Creatinine Clearance Date:10/27/16. Creatinine Clearance: [40]. Pending Labs Vancomycin trough scheduled 10/31/16 @1200 Assessment and Plan Maintaining Current Dose?: Yes Reason for dose change: Trough too high Pharmacist Note Pharmacist Note 11/01: Patient's trough came back at 20.4. He already received 1300 dose today, so rescheduled Vancomycin dose to restart tomorrow morning at 5am to give patient time to clear some of the dose. Dr. Garcia has been consulted. Patient is still have positive MRSA consulted. We will continue to monitor and make changes as necessary. 10/31/16: Re-timed vancomycin trough that was scheduled for 1300 today for 1300 tomorrow, 11/01/16, due to patient receiving blood transfusion at that time today. We will follow-up tomorrow when level results and adjust dose if needed. 10/30/16: Day #5 vancomycin therapy for infected left hip prosthesis now s/p removal POD#3. Blood and wound cultures have resulted positive growth for MRSA sensitive to vancomycin with an ALBINO<0.5. WBC is currently WNL, CRP is still elevated but is trending down, and patient has been febrile within the past 24 hours. The patient's serum creatinine has improved greatly since initial trough level from 1.27 to 0.93 today. I have scheduled a trough to be drawn 10/31/16 @ 1200 to ensure that we are maintaining adequate trough levels. We will continue to monitor and make adjustments as needed. Date: 10/27/16. Pharmacist note:Trough of 17 is within target range. Will continue current dosing. Will continue to monitor and maje adjustments as needed. [facility] Nov 01, 2016 13:20
[2016-11-01 14:00] VITALS: BP 153/69
--- NOTE | 2016-11-01 19:09 | ECHO ---
DATE OF PROCEDURE: 11/01/2016 REFERRING PHYSICIAN: Dr. Garcia INDICATIONS: Fever. HEIGHT: 183 cm WEIGHT: 69.5 kg DIMENSIONS: IVS: 1.4 LV: 5.1. LVPW: 1.3 LA: 3.8 Aorta: 3.6. FINDINGS: The study is of good technical quality. Left ventricle is of normal size and hyperdynamic systolic function. Estimated ejection fraction (EF) is 65-70%. I do not appreciate any segmental wall motion abnormalities. Mild left ventricular hypertrophy (LVH) is noted. Right ventricle is also normal size and systolic function. Left atrium is probably severely enlarged. Right atrium was poorly seen. Aortic valve is tricuspid. It is prominently sclerotic and there is some restriction of leaflet mobility. I do not appreciate any distinct vegetations. Mitral valve also exhibits degenerative abnormalities with thickening of the mitral leaflets but again no obvious vegetation is seen. I also do not appreciate prolapse of the valve. Tricuspid and pulmonic valves appear normal. No pericardial effusion is noted. Inferior vena cava is normal size. Aortic root is normal. Aortic arch was not visualized. Abdominal aorta appears normal. Doppler interrogation of the aortic valve reveals minimal stenosis. There is mean gradient 10 mmHg and approximately moderate aortic insuffieiency. There is also approximately moderate mitral insufficiency and no mitral stenosis. Tricuspid valve exhibits trace insufficiency. Calculated pulmonary artery pressure is upper limits of normal valves or possibly mildly elevated. Trace pulmonic insufficiency is also seen. Mitral inflow pattern and tissue Doppler imaging of mitral annulus reveal grade 1 diastolic dysfunction (tissue Doppler velocities of mitral annulus are 5.3 and 7.4 cm/sec in septal and lateral mitral annulus respectively). CONCLUSIONS: 1. Study is of good technical quality. 2. Normal left ventricle size with mild left ventricular hypertrophy and hyperdynamic left ventricle systolic function. Grade 1 diastolic dysfunction. 3. Aortic sclerosis resulting in mild stenosis and approximately moderate insufficiency. 4. Degenerative abnormalities of mitral valve with approximately moderate mitral insufficiency. 5. Normal central venous pressure and likely mild pulmonary hypertension. COMMENT: Subacute bacterial endocarditis (SBE) prophylaxis is not recommended. No obvious vegetations are appreciated. If high clinical suspicion for bacterial endocarditis transesophageal echocardiogram will provide better anatomic resolution.
[2016-11-01] MEDS: LEVEMIR (INSULIN DETEMIR) 1 UNITS/0.01ML SC SCH (21:00)
[2016-11-01] MEDS: SIMVASTATIN 10 MG TAB PO SCH (21:55)
[2016-11-01] MEDS: TAMSULOSIN 0.4 MG CAP PO SCH (21:56)
[2016-11-01 22:00] VITALS: BP 132/63
[2016-11-02] MEDS: LEVOTHYROXINE 0.05 MG TAB (50 MCG) PO SCH (05:17)
[2016-11-02] MEDS: SLF 3 ML SYR IV SCH ×3 (05:18→22:00)
[2016-11-02] MEDS: VANCOMYCIN HCL 750 MG, VIAL MATE ADAPTER 1 EACH in D5W 250 ML IV SCH ×2 (05:18→17:11)
[2016-11-02] MEDS: HEPARIN SOD (PORCINE) 5000 UNITS/ML VIAL SC SCH ×3 (05:18→20:58)
[2016-11-02 06:00] VITALS: BP 168/74
[2016-11-02 06:35] LABS: MEAN CORPUSCULAR HEMOGLOBIN 31.5 pg (27.0-33.0); MEAN CORPUSCULAR HGB CONC 33.8 g/dl (32.0-36.5); MEAN CORPUSCULAR VOLUME 93.3 fl (80.0-96.0); WHITE BLOOD COUNT 8.4 K/mm3 (4.0-10.0)
[2016-11-02 06:57] LABS: ANION GAP 6 MEQ/L (8-16); BLOOD UREA NITROGEN 26 MG/DL (7-18); CARBON DIOXIDE LEVEL 27 MEQ/L (21-32); CHLORIDE LEVEL 101 MEQ/L (98-107); CREATININE FOR GFR 0.74 MG/DL (0.70-1.30); GLOMERULAR FILTRATION RATE > 60.0 (>35); GLUCOSE, FASTING 112 MG/DL (83-110); POTASSIUM SERUM 3.7 MEQ/L (3.5-5.1); SODIUM LEVEL 134 MEQ/L (136-145)
[2016-11-02] MEDS: HumaLOG INSULIN (NovoLOG) PER UNIT SC SCH ×4 (07:30→21:00)
--- NOTE | 2016-11-02 07:55 | IPNPDOC ---
Subjective Date Seen The patient was seen on 11/02/16. Subjective Chief Complaint/HPI The patient is a 86-year-old male admitted with a reason for visit of Sepsis. General: Reports: ROS Unobtainable Objective Physical Examination General Exam: Positive: Alert, No Acute Distress, Negative: Cooperative Eye Exam: Positive: Conjunctiva & lids normal, EOMI, Negative: Sclera icteric ENT Exam: Positive: Atraumatic, Mucous membr. moist/pink Neck Exam: Positive: Supple Chest Exam: Positive: Clear to auscultation, Normal air movement Heart Exam: Positive: Murmurs, Rate Normal, Regular Rhythm Abdomen Exam: Positive: Normal bowel sounds, Soft, Negative: Tenderness Psych Exam: Negative: Oriented x 3 (Oriented to person and place.) Assessment /Plan Problems (1) Bacteremia due to methicillin resistant Staphylococcus aureus Status: Acute Problem Specific Plan: Consult Specialist, Monitor Clinically Problem Text: Day #8 IV Vancomycin Repeat BCx NTD ID c/s pending TTE no vegetations + murmur - new? (2) Hip fracture Status: Acute Problem Specific Plan: Consult Specialist, Monitor Clinically Problem Text: POD #6 for removal infected left hip prosthesis, total hip replacement (3) Urinary retention Status: Chronic Problem Specific Plan: Monitor Clinically Problem Text: mc catheter, likely will be chronic proscar, flomax (4) CAD (coronary artery disease) Status: Chronic Problem Text: s/p CABG x 6 as per documentation (5) Dementia Status: Acute Problem Specific Plan: Monitor Clinically, Repeat Labs, Repeat Tests Problem Text: Like TME complicated with underlying dementia. As above for treatment for bacteremia. (6) Parkinson disease Status: Acute (7) Diabetes Status: Chronic Problem Specific Plan: Repeat Labs Problem Text: Continue modified diet, insulin sliding scale. (8) Hypothyroidism Status: Chronic Problem Text: continue synthroid. (9) Anemia Status: Chronic Problem Specific Plan: Monitor Clinically (10) Dysphagia Status: Chronic Problem Specific Plan: Monitor Clinically Problem Text: Modified diet - pureed. (11) Ulcer of heel Status: Chronic (12) Dyslipidemia Status: Chronic Problem Text: Continue Zocor. (13) Sepsis Status: Resolved Response to Treatment: Progressing Discussed With: Patient Problem Specific Plan: Consult Specialist, Monitor Clinically, Repeat Labs, Repeat Tests Problem Text: Sepsis on admission - bacteremia. As per above for MRSA bacteremia. Plan/VTE VTE Prophylaxis Ordered?: Yes (Heparin SC) Plan/Urinary Catheter Reason for insertion/continuin: Critical Pt monitoring Plan Diet: Continue Current Therapy: PT, OT Diagnostics: Repeat Labs in AM, Obtain Cultures VS, I&O, 24H, Fishbone Vital Signs/I&O Vital Signs Date Time Temp Pulse Resp B/P Pulse Ox O2 Delivery O2 Flow Rate FiO2 11/02/16 06:00 99.4 78 16 168/74 98 Room Air 10/31/16 14:00 3.0 I&O- Last 24 Hours up to 6 AM 11/02/16 06:00 Intake Total 1310 ml Output Total 1000 ml Balance 310 ml Laboratory Data 24H LABS Laboratory Tests 2 11/01/16 11:37: Bedside Glucose (Misc Panel) 125H 11/01/16 11:56: Vancomycin Level Trough 20.4H 11/01/16 16:54: Bedside Glucose (Misc Panel) 86 11/01/16 21:29: Bedside Glucose (Misc Panel) 198H 11/02/16 06:13: Anion Gap 6L, C-Reactive Protein, Quantitative 8.76H, Blood Urea Nitrogen 26H, Creatinine 0.74, Sodium Level 134L, Potassium Level 3.7, Chloride Level 101, Carbon Dioxide Level 27, Calcium Level 7.0L, Glomerular Filtration Rate > 60.0 CBC/BMP Laboratory Tests 11/02/16 06:13 Calcium Level 7.0 L, Red Blood Count 2.79 L, Mean Corpuscular Volume 93.3, Mean Corpuscular Hemoglobin 31.5, Mean Corpuscular Hemoglobin Concent 33.8, Red Cell Distribution Width 15.0 H Microbiology Microbiology 11/01/16 Blood Culture - Preliminary, Resulted 11/01/16 Blood Culture - Preliminary, Resulted No growth after 24 hours . All specim... 10/31/16 Blood Culture - Preliminary, Resulted 10/31/16 Blood Culture - Preliminary, Resulted 10/28/16 Blood Culture - Final, Complete Staph.aureus Methicillin Resis 10/28/16 Blood Culture - Final, Complete Staph.aureus Methicillin Resis 10/26/16 Blood Culture - Final, Complete Staph.aureus Methicillin Resis 10/26/16 Blood Culture - Final, Complete Staph.aureus Methicillin Resis 10/31/16 Stool Occult Blood (ALBINO) - Final, Complete 10/26/16 Influenza Virus Type A Antigen - Final, Complete 10/26/16 Influenza Virus Type B Antigen - Final, Complete 10/26/16 Urine Culture - Final, Complete 10/27/16 Gram Stain - Final, Complete 10/27/16 Wound Culture - Final, Complete Staph.aureus Methicillin Resis 10/27/16 Anaerobic Culture - Final, Complete 10/27/16 Anaerobic Culture - Final, Complete 10/27/16 Gram Stain - Final, Complete 10/27/16 Abscess Culture - Final, Complete Staph.aureus Methicillin Resis BARBARA KENNEDY MD Nov 02, 2016 07:55
[2016-11-02] MEDS: FERROUS SULFATE 325MG TAB PO SCH (09:31)
[2016-11-02] MEDS: SENOKOT S TAB PO SCH ×2 (09:31→20:58)
[2016-11-02] MEDS: rOPINIRole 1MG TAB PO SCH ×2 (09:31→20:58)
[2016-11-02] MEDS: ASPIRIN 81 MG CHEW TABLET PO SCH (09:31)
[2016-11-02] MEDS: MIRALAX *UNIT DOSE* 17GM PACKET PO SCH (09:31)
[2016-11-02] MEDS: OLANZapine 5 MG TAB PO SCH (09:31)
[2016-11-02] MEDS: MULTIVITAMINS/MINERALS THERAP 1 TAB PO SCH (09:32)
[2016-11-02] MEDS: CYANOCOBALAMIN 500 MCG TAB PO SCH (09:32)
[2016-11-02] MEDS: FINASTERIDE 5 MG TAB PO SCH (09:32)
[2016-11-02] MEDS: PRIMIDONE 50 MG TAB PO SCH ×2 (09:33→20:58)
[2016-11-02] MEDS: METOPROLOL SUCC (TopROL XL) 50MG **XL** TAB PO SCH (09:33)
[2016-11-02] MEDS: POLYVINYL ALCOHOL OPHTH SOLN 15 ML(LIQUITEARS) OU SCH (09:35)
[2016-11-02 14:00] VITALS: BP 145/67
--- NOTE | 2016-11-02 17:36 | CR ---
DATE OF CONSULTATION: 11/02/2016 Time patient was seen was this afternoon at 1530 hours. REQUESTING PHYSICIAN: Robert Fu MD CONSULTING PHYSICIAN: Desean Garcia MD REASON FOR CONSULTATION: Staphylococcus aureus bacteremia infected prosthesis. CHIEF COMPLAINT: Infected prosthesis. HISTORY OF PRESENT ILLNESS: 86-year-old male with past medical history of coronary artery disease status post coronary artery bypass graft (CABG), recent left hip replacement by Dr. Field on 09/23/2016, dementia, hyperlipidemia, Parkinson's disease, insulin-dependent type 2 diabetes, hypothyroidism, bilateral heel pressure wounds, presented with infected left prosthesis. Patient was demented and did not answer any questions. Most of the questions were obtained from nursing staff, patient's primary care physician in the hospital, as well as from the chart. Patient was admitted on 10/26/2016, and it was found that patient had elevated temperature to 103.6 and he has been on vancomycin and Zosyn. Patient was seen by Dr. Kumar, orthopedic events solutions consultant, on the same day and recommended head and liner exchange with incision and drainage at the hip joint. Over the next day, Dr. Field performed the surgery, which he removed the left hip, hemiarthroplasty, and also placed a cement spacer from the left hip femur shaft, also using antibiotic cement, which was done on 10/27/2016. Patient's blood culture has been showing methicillin-resistant Staphylococcus aureus (MRSA), was only sensitive to gentamicin, Zyvox, tetracycline, Bactrim, and vancomycin, and patient was started on vancomycin. Patient's Zosyn was subsequently discontinued after the blood culture came back. ALLERGIES: Patient is allergic to caffeine, LORATADINE, MORPHINE, PENTAZOCINE, and PSEUDOEPHEDRINE. Reaction appears to be mild for all stated above. HOME MEDICATIONS: Including: - Tylenol 500 mg one tablet by mouth three times a day - Tylenol 550 mg one tablet by mouth every 4 hours as needed - Augmentin 500/125 mg one tablet by mouth twice a day - aspirin 81 mg one tablet by mouth daily - Dulcolax 10 mg per rectum daily - Rocephin 1 gram intramuscularly - vitamin B12 1000 mcg one tablet by mouth daily - docusate/senna one tablet by mouth twice a day - ferrous sulfate 325 mg one tablet by mouth daily - Proscar 5 mg one tablet by mouth daily - Glucerna one liquid by mouth twice a day - Levemir 80 units subcutaneously nightly - insulin sliding scale - Synthroid 50 mcg one tablet by mouth daily - metoprolol succinate 50 mg one tablet by mouth daily - milk of magnesia 30 mL by mouth daily as needed - multivitamin one tablet by mouth daily - olanzapine 5 mg one tablet by mouth daily - MiraLax 17 grams by mouth daily - polyethylene glycol one drop in each eye daily - PreserVision one tablet by mouth twice a day - primidone 100 mg one tablet by mouth twice a day - ropinirole 1 mg one tablet by mouth twice a day - simvastatin 10 mg one tablet by mouth nightly - sodium phosphate enema one enema per rectum daily as needed PAST MEDICAL HISTORY: Includin. Coronary artery disease status post CABG times six. 2. Hyperlipidemia. 3. Dementia. 4. Parkinson's disease. 5. Insulin-dependent diabetes. 6. Hypothyroidism. 7. Bilateral heel pressure ulcers. PAST SURGICAL HISTORY: Includin. Left hip replacement by Dr. Field on 09/23/2016. 2. Appendectomy. 3. Cholecystectomy. 4. CABG. SOCIAL HISTORY: [facility] is a [facility] resident. Denies any smoking, drinking, or recreational drug use. Patient is a DO NOT RESUSCITATE/DO NOT INTUBATE. Healthcare proxy is patient's , Aida. FAMILY HISTORY: Noncontributory. REVIEW OF SYSTEMS: Unable to obtain due to patient is demented and was not cooperative. PHYSICAL EXAMINATION: VITAL SIGNS: Temperature 98.7, pulse 78, respirations 18, blood pressure 145/67 , oxygen was saturating at 97% on room air. GENERAL: Patient is a cachectic-looking elderly male who was completely unresponsive to verbal stimuli, however he was responsive to pain, he opens his eyes spontaneously upon touch also. HEENT: Normocephalic, atraumatic. Extraocular motors could not be assessed due to patient does not cooperate and he is demented. Neck supple, no neck lymphadenopathy. CARDIOVASCULAR: Regular rate and rhythm. S1, S2. No murmurs, rubs, or gallops. LUNGS: Clear to auscultation bilaterally. No wheezes, rales, or rhonchi. ABDOMEN: Positive bowel sounds. Soft, nontender, nondistended. No peritoneal signs. No ecchymosis. EXTREMITIES: No edema, clubbing, or cyanosis. Patient does have two stage IV large pressure ulcers at bilateral heels measuring at least 5 x 5 on each heel. Patient's left hip incision was dry, clean, and intact however. Abrahan-Crenshaw (YESSENIA) drain has not produced any output today. SKIN: Warm and dry. NEUROLOGIC: Could not be assessed due to patient is demented and was not cooperating. LABORATORY DATA: WBC 8.4, hemoglobin 8.8, hematocrit 26, with a platelet count of 421, MCV of 93.3. Sodium 134, potassium 3.7, chloride 101, bicarbonate 27, anion gap 26, creatinine 0.74, GFR greater than 60, fasting glucose 112, calcium 7, CRP was 8.76, yesterday was 8.71, day prior was 10.9. Patient's Accu-Chek glucose shows at noon-time was 217, before was 198 and 86. Patient has blood culture times two. One of two yesterday shows preliminary with gram-positive cocci in clusters, the other one shows no growth after 24 hours. However, both sets of blood cultures two days ago preliminary show gram-positive cocci in clusters and the patient's blood culture from as far back as 10/26/2016 shows MRSA, was only sensitive to gentamicin, Zyvox, tetracycline, Bactrim, and vancomycin. Patient did have a CT of abdomen and pelvis with contrast on 10/26/2016, shows ill-defined low attenuation area lateral and posterior of the left hip and could represent a developing abscess. A tiny foci of low attenuation could represent pockets of gas. ASSESSMENT AND PLAN: 86-year-old male with multiple comorbidities, most significantly he had at least moderate dementia with bilateral heel pressure ulcers, as well as recent left hip replacement in September 2016, presented with: 1. Sepsis and bacteremia due to infected left hip prosthesis which has been removed by Dr. Field on . Patient has been on vancomycin since admission on 10/26/2016. We recommend to continue the same vancomycin dosage for now. Patient will need to repeat blood culture until blood culture shows no growth. Will need 6 weeks of antibiotic from date of negative blood cultures. Patient has been discussed with attending doctor, Dr. Desean Garcia. My preceptor for this patient encounter was Dr. Desean Garcia. The preceptor was physically present in the building during the encounter and was fully available. As needed, all aspects of the patient interview, examination, medical decision making process, and medical care plan development were reviewed and approved by the preceptor. The preceptor is aware and concurs with the plan as stated in the body of this note and will attest to such by her cosignature. MARIANA
[2016-11-02] MEDS: SIMVASTATIN 10 MG TAB PO SCH (20:58)
[2016-11-02] MEDS: LEVEMIR (INSULIN DETEMIR) 1 UNITS/0.01ML SC SCH (20:58)
[2016-11-02] MEDS: TAMSULOSIN 0.4 MG CAP PO SCH (20:58)
[2016-11-02 22:00] VITALS: BP 132/62
--- NOTE | 2016-11-02 23:06 | CR ---
DATE OF CONSULTATION: 11/01/2016 REASON FOR CONSULTATION: Methicillin-resistant Staphylococcus aureus (MRSA) sepsis with prosthetic joint infection. Mr. Pickens is an 86-year-old gentleman who was admitted on 10/26/2016 from [facility] after he was noted to have a fever of 103.7. The patient had an elevated white count. He was started on vancomycin and Zosyn, and he had positive blood cultures. The patient had recently had a fall in the end of September with a left hip hemiarthroplasty on 09/23/2016, transferred to the [facility] where he was supposed to have rehabilitation. The patient had multiple decubitus ulcers on both heels. Both ulcers had significant serous drainage. Blood cultures that were collected on 10/24/2016 were positive for methicillin-resistant Staphylococcus aureus (MRSA). The patient was taken to the operating room on 10/27/[address] Field. He removed the left hemiarthroplasty, he removed the cement and the spacer, and he placed antibiotic cement. left hip intraoperatively dafne purulent drainage, which was sent for aerobic and anaerobic culture and that was positive as well for MRSA. The patient has had persistent positive blood cultures in spite of being on appropriate IV antibiotics. He has been lethargic but he is not febrile. PAST MEDICAL HISTOR: Significant for dementia and Alzheimer's disease, but the patient prior to this fall was home. Coronary artery disease status post coronary artery bypass graft (CABG), hyperlipidemia, insulin-dependent diabetes, hypothyroidism, bilateral decubitus ulcers of heels. PAST SURGICAL HISTORY: Left hemiarthroplasty done on 09/23/2016, appendectomy, cholecystectomy, CABG. SOCIAL HISTORY: residential resident. Denies tobacco or alcohol use. He is DO NOT RESUSCITATE (DNR) and DO NOT INTUBATE (DNI). His healthcare proxy is his , Aida. REVIEW OF SYSTEMS: Could not be obtained. The patient barely opens his eyes when his name is called. Vital signs: Maximum temperature (T max) was 99.7, pulse 73, respirations 16, blood pressure 132/63, oxygen saturation 97% on room air. Heart: Normal S1, S2 with a systolic ejection murmur best heard at the left upper sternal border. He had a midsternal chest wound, which is well healed. Abdomen is soft, nontender. No hepatosplenomegaly. Lungs are clear. No wheezes, rales or rhonchi. Abdomen is soft, nontender. Extremities: No clubbing, cyanosis or edema. He has some local red excoriation of his calves and both shins. Left heel has bilateral decubitus ulcers with serosanguineous discharge. They are stage III. They measure about 6 x 6 cm. Left hip has a large ABD pad. When uncovered, there is minimal erythema around the wound. [place] in place. There is no purulence and no fluctuance. IMPRESSION: An 86-year-old gentleman, status post left hemiarthroplasty done at the end of September, who was admitted with bilateral heel decubitus ulcers with positive cultures for MSSA and blood cultures were positive for MRSA as well as an abscess culture of the left hip was also positive for MRSA. The concern is the patient continues to be bacteremic in spite of appropriate antibiotic. He has had positive blood cultures since 10/24/2016, which makes it a total of 8 days. An echocardiogram was done which did not show evidence of endocarditis, but this was a transthoracic echo. It was read by Dr. Tobias. It was a good quality echo. Normal left ventricle size. Aortic sclerosis with mild stenosis and degenerative mitral valve . The concern of the persistent bacteremia could have been that he has seeded another focus, either his heart valve or he has another focus of infection which has not been detected. He had a CT of the abdomen and pelvis, which done on 10/26/2016, which showed severe constipation, hepatomegaly, degenerative disc disease at L4-5, S1. There was also attenuation of the left hip with a developing abscess and tiny foci of gas in there. MEDICATIONS: - vancomycin 750 mg IV every 12 hours - Flomax 0.4 mg by mouth nightly - insulin sliding scale - Levemir 20 units subcu nightly - aspirin 81 mg by mouth daily - vitamin B12 1000 mcg daily - Senokot one tablet by mouth twice a day - ferrous sulfate 325 mg by mouth daily - Proscar 5 mg by mouth daily - metoprolol 50 mg by mouth daily - multivitamin one tablet daily - Zyprexa 5 mg by mouth daily - MiraLax one packet by mouth daily - Artificial Tears one drop both eyes daily - primidone 100 mg by mouth twice a day - Requip 1 mg by mouth twice a day - heparin subcu 5000 units subcutaneously every 8 hours - levothyroxine 0.05 mg by mouth daily Vancomycin trough on 11/01/2016 was 20.4. White count 9.2, hemoglobin 9, hematocrit 27.1, platelets 382. Sodium 136, potassium 3.7, chloride 103, bicarbonate 26, BUN 29, creatinine 0.71, glucose 91, calcium 7.1, CRP 8.7 which is down from 27. Blood cultures were positive on 10/24/2016 two sets for MRSA; 10/26/2016 two more sets were positive for MRSA. 10/27/2016: Left hip culture is positive for MRSA. 10/28/2016: Two sets of blood cultures are still positive for MRSA. 10/31/2016: Two sets positive for MRSA and 11/01/2016 one out of two sets are positive for MRSA. PLAN: Continue to obtain blood cultures until he has negative cultures times two. Continue IV vancomycin 750 mg every 12 hours. Keep vancomycin trough between 15 and 20. ALBINO to vancomycin is less than 0.5, and vancomycin should be appropriate therapy. If the patient continues to be lethargic, I would obtain a CT head as the patient could seed brain develop metastatic complication with brain abscess as he has had persistent bacteremia for more than a week now. , consider CT abdomen and pelvis as well There may be a concern for endocarditis at this point, but the treatment would be the same anyway with 6 weeks of IV vancomycin and he is not a surgical candidate Will continue to monitor. [facility]
[2016-11-03] MEDS: LEVOTHYROXINE 0.05 MG TAB (50 MCG) PO SCH (05:24)
[2016-11-03] MEDS: SLF 3 ML SYR IV SCH ×3 (05:24→21:01)
[2016-11-03] MEDS: HEPARIN SOD (PORCINE) 5000 UNITS/ML VIAL SC SCH ×3 (05:24→21:01)
[2016-11-03] MEDS: VANCOMYCIN HCL 750 MG, VIAL MATE ADAPTER 1 EACH in D5W 250 ML IV SCH ×2 (05:24→17:04)
[2016-11-03 06:00] VITALS: BP 142/55
[2016-11-03 07:16] LABS: BASO % 0.3 % (0.0-1.0); EOS # 0.3 K/mm3 (0.0-0.50); EOS % 3.5 % (0.0-3.0); LARGE UNSTAINED CELL # 0.1 K/mm3 (0.0-0.4); LARGE UNSTAINED CELL % 1.9 % (0.0-4.0); LYMPH # 1.1 K/mm3 (1.5-4.5); LYMPH % 12.9 % (24.0-44.0); MEAN CORPUSCULAR HEMOGLOBIN 30.4 pg (27.0-33.0); MEAN CORPUSCULAR HGB CONC 32.4 g/dl (32.0-36.5); MEAN CORPUSCULAR VOLUME 93.8 fl (80.0-96.0); MONO # 0.4 K/mm3 (0.0-0.8); MONO % 4.7 % (0.0-5.0); NEUTROPHILS # 5.7 K/mm3 (1.8-7.7); NEUTROPHILS % 76.7 % (36.0-66.0); PLATELET COUNT, AUTOMATED 458 k/mm3 (150-450); RED CELL DISTRIBUTION WIDTH 14.6 % (11.5-14.5); WHITE BLOOD COUNT 7.5 K/mm3 (4.0-10.0)
[2016-11-03] MEDS: HumaLOG INSULIN (NovoLOG) PER UNIT SC SCH ×4 (07:30→21:00)
[2016-11-03 07:48] LABS: ANION GAP 4 MEQ/L (8-16); BLOOD UREA NITROGEN 25 MG/DL (7-18); CALCIUM LEVEL 7.7 MG/DL (8.8-10.2); CARBON DIOXIDE LEVEL 31 MEQ/L (21-32); CHLORIDE LEVEL 102 MEQ/L (98-107); CREATININE FOR GFR 0.93 MG/DL (0.70-1.30); GLOMERULAR FILTRATION RATE > 60.0 (>35); GLUCOSE, FASTING 76 MG/DL (83-110); POTASSIUM SERUM 3.9 MEQ/L (3.5-5.1); SODIUM LEVEL 137 MEQ/L (136-145)
--- NOTE | 2016-11-03 08:02 | IPNPDOC ---
Subjective Date Seen The patient was seen on 11/03/16. Subjective Chief Complaint/HPI The patient is a 86-year-old male admitted with a reason for visit of Sepsis. Events since last encounter Lethargic. poor historian. no acute overnight events reported. General: Reports: ROS Unobtainable (Patient denies any complaints, but only answers no with prompting. Very poor historian.), Denies: Chills, Fatigue, Malaise, Night Sweats, Normal Appetite, Other Symptoms Constitutional: Denies: Chills, Fatigue, Fever, Lethargy, Malaise, Night Sweats , Other, Weakness, Weight Loss Eyes: Denies: Conjunctivae inflammation, Eyelid inflammation, Other, Pain, Redness, Vision change ENT: Denies: Dysphagia, Ear Pain, Epistaxis, Head Aches, Other Symptoms, Post Nasal Drip, Sinus Congestion, Sore Throat Skin: Denies: Breakdown, Bruising, Dry, Itching, Jaundice, Lesions, Nail Changes, Other, Rash Pulmonary: Denies: Cough, Dyspnea, Other Symptoms, Pleuritic Chest Pain Cardiovascular: Denies: Chest Pain, Edema, Lt Headedness, Orthopnea, Other Symptoms, Palpitations, Paroxysmal Noc. Dyspnea Gastrointestinal: Denies: Abdominal Pain, Constipation, Diarrhea, Hematochezia , Melena, Nausea, Other Symptoms, Vomiting Genitourinary: Denies: Dysuria, Frequency, Hematuria, Incontinence, Other Symptoms, Retention Hematologic: Denies: Bleeding Excessively, Bruising, Enlarged Lymph Nodes, Other Hematologic, Petecchia, Purpura Musculoskeletal: Denies: Arm Pain, Back Pain, Foot Pain, Hand Pain, Joint Pain , Leg Pain, Muscle Pain, Neck Pain, Other Symptoms, Shoulder Pain, Spasms Objective Physical Examination General Exam: Positive: Alert, No Acute Distress, Other (lethargic, elder, frail), Negative: Cooperative Eye Exam: Positive: Conjunctiva & lids normal, PERRLA, Negative: Sclera icteric ENT Exam: Positive: Atraumatic, Mucous membr. moist/pink Neck Exam: Positive: Supple Chest Exam: Positive: Clear to auscultation, Normal air movement Heart Exam: Positive: Murmurs, Rate Normal, Regular Rhythm Abdomen Exam: Positive: Normal bowel sounds, Soft, Negative: Tenderness Extremity Exam: Positive: Other (multiple ulcers b/l feet, left hip dressings in place) Psych Exam: Negative: Oriented x 3 (Oriented to person and place.) Assessment /Plan Problems (1) Bacteremia due to methicillin resistant Staphylococcus aureus Status: Acute Problem Specific Plan: Consult Specialist, Monitor Clinically Problem Text: Day #9 IV Vancomycin Repeat BCx - 1+, 1 NTD ID c/s appreciated - to complete 6 weeks - repeat BCx till negative TTE no vegetations + murmur - new? (2) Hip fracture Status: Acute Problem Specific Plan: Consult Specialist, Monitor Clinically Problem Text: POD #7 for removal infected left hip prosthesis, total hip replacement (3) Urinary retention Status: Chronic Problem Specific Plan: Monitor Clinically Problem Text: mc catheter, likely will be chronic continue proscar, flomax (4) CAD (coronary artery disease) Status: Chronic Problem Text: s/p CABG x 6 as per documentation (5) Dementia Status: Chronic Problem Specific Plan: Monitor Clinically, Repeat Labs, Repeat Tests Problem Text: Like TME complicated with underlying dementia. As above for treatment for bacteremia. check CT head (6) Parkinson disease Status: Chronic Problem Specific Plan: Monitor Clinically (7) Diabetes Status: Chronic Problem Specific Plan: Repeat Labs Problem Text: Continue modified diet, insulin sliding scale. (8) Hypothyroidism Status: Chronic Problem Text: continue synthroid. (9) Anemia Status: Chronic Problem Specific Plan: Monitor Clinically (10) Dysphagia Status: Chronic Problem Specific Plan: Monitor Clinically Problem Text: Modified diet - pureed. (11) Ulcer of heel Status: Chronic (12) Dyslipidemia Status: Chronic Problem Text: Continue Zocor. (13) Sepsis Status: Resolved Response to Treatment: Progressing Discussed With: Patient Problem Specific Plan: Consult Specialist, Monitor Clinically, Repeat Labs, Repeat Tests Problem Text: Sepsis on admission - bacteremia. As per above for MRSA bacteremia. Plan/VTE VTE Prophylaxis Ordered?: Yes (Heparin SC) Plan/Urinary Catheter Reason for insertion/continuin: Acute obstruct/retention Plan Diet: Continue Current Therapy: PT, OT Diagnostics: Repeat Labs in AM, Obtain Cultures, CT Repeat BCx till negative. So far 1 NTD. Vanco IV - [address] head for further eval AMS VS, I&O, 24H, Fishbone Vital Signs/I&O Vital Signs Date Time Temp Pulse Resp B/P Pulse Ox O2 Delivery O2 Flow Rate FiO2 11/03/ 06:00 100.3 76 16 142/55 97 Room Air 10/31/16 14:00 3.0 I&O- Last 24 Hours up to 6 AM 11/03/16 06:00 Intake Total 1700 ml Output Total 1300 ml Balance 400 ml Laboratory Data 24H LABS Laboratory Tests 2 11/02/16 11:58: Bedside Glucose (Misc Panel) 217H 11/02/16 17:07: Bedside Glucose (Misc Panel) 67L 11/02/16 18:44: Bedside Glucose (Misc Panel) 194H 11/03/16 06:43: Anion Gap 4L, White Blood Count 7.5, Red Blood Count 2.96L, Hemoglobin 9.0L, Hematocrit 27.7L, Mean Corpuscular Volume 93.8, Mean Corpuscular Hemoglobin 30.4 , Mean Corpuscular Hemoglobin Concent 32.4, Red Cell Distribution Width 14.6H, Platelet Count 458H, Neutrophils (%) (Auto) 76.7H, Lymphocytes (%) (Auto) 12.9L , Monocytes (%) (Auto) 4.7, Eosinophils (%) (Auto) 3.5H, Basophils (%) (Auto) 0.3, Neutrophils # (Auto) 5.7, Lymphocytes # (Auto) 1.1L, Monocytes # (Auto) 0.4 , Eosinophils # (Auto) 0.3, Basophils # (Auto) 0.0, C-Reactive Protein, Quantitative 9.73H, Blood Urea Nitrogen 25H, Creatinine 0.93, Sodium Level 137, Potassium Level 3.9, Chloride Level 102, Carbon Dioxide Level 31, Calcium Level 7.7L, Glomerular Filtration Rate > 60.0, Large Unclassified Cells # 0.1, Large Unclassified Cells % 1.9 CBC/BMP Laboratory Tests 11/03/16 06:43 Calcium Level 7.7 L, Red Blood Count 2.96 L, Mean Corpuscular Volume 93.8, Mean Corpuscular Hemoglobin 30.4, Mean Corpuscular Hemoglobin Concent 32.4, Red Cell Distribution Width 14.6 H, Neutrophils (%) (Auto) 76.7 H, Lymphocytes (%) (Auto ) 12.9 L, Monocytes (%) (Auto) 4.7, Eosinophils (%) (Auto) 3.5 H, Basophils (%) (Auto) 0.3, Neutrophils # (Auto) 5.7, Lymphocytes # (Auto) 1.1 L, Monocytes # ( Auto) 0.4, Eosinophils # (Auto) 0.3, Basophils # (Auto) 0.0 Microbiology Microbiology 11/03/16 Blood Culture, Received Pending 11/01/16 Blood Culture - Preliminary, Resulted 11/01/16 Blood Culture - Preliminary, Resulted No Growth after 48 hours. All Specime... 10/31/16 Blood Culture - Preliminary, Resulted 10/31/16 Blood Culture - Preliminary, Resulted 10/28/16 Blood Culture - Final, Complete Staph.aureus Methicillin Resis 10/28/16 Blood Culture - Final, Complete Staph.aureus Methicillin Resis 10/26/16 Blood Culture - Final, Complete Staph.aureus Methicillin Resis 10/26/16 Blood Culture - Final, Complete Staph.aureus Methicillin Resis 10/31/16 Stool Occult Blood (ALBINO) - Final, Complete 10/26/16 Influenza Virus Type A Antigen - Final, Complete 10/26/16 Influenza Virus Type B Antigen - Final, Complete 10/26/16 Urine Culture - Final, Complete 10/27/16 Gram Stain - Final, Complete 10/27/16 Wound Culture - Final, Complete Staph.aureus Methicillin Resis 10/27/16 Anaerobic Culture - Final, Complete 10/27/16 Anaerobic Culture - Final, Complete 10/27/16 Gram Stain - Final, Complete 10/27/16 Abscess Culture - Final, Complete Staph.aureus Methicillin Resis BARBARA KENNEDY MD Nov 03, 2016 08:02
[2016-11-03] MEDS: ASPIRIN 81 MG CHEW TABLET PO SCH (08:31)
[2016-11-03] MEDS: MIRALAX *UNIT DOSE* 17GM PACKET PO SCH (08:31)
[2016-11-03] MEDS: CYANOCOBALAMIN 500 MCG TAB PO SCH (08:31)
[2016-11-03] MEDS: SENOKOT S TAB PO SCH ×3 (08:32→21:00)
[2016-11-03] MEDS: PRIMIDONE 50 MG TAB PO SCH ×3 (08:32→21:00)
[2016-11-03] MEDS: OLANZapine 5 MG TAB PO SCH (08:32)
[2016-11-03] MEDS: FINASTERIDE 5 MG TAB PO SCH (08:33)
[2016-11-03] MEDS: METOPROLOL SUCC (TopROL XL) 50MG **XL** TAB PO SCH (08:33)
[2016-11-03] MEDS: rOPINIRole 1MG TAB PO SCH ×3 (08:33→21:00)
[2016-11-03] MEDS: POLYVINYL ALCOHOL OPHTH SOLN 15 ML(LIQUITEARS) OU SCH (08:34)
[2016-11-03] MEDS: MULTIVITAMINS/MINERALS THERAP 1 TAB PO SCH (08:34)
[2016-11-03] MEDS: FERROUS SULFATE 325MG TAB PO SCH (08:35)
[2016-11-03 09:06] LABS: ERYTHROCYTE SEDIMENTATION RATE 72 mm/hr (0-30)
--- NOTE | 2016-11-03 09:42 | REP ---
CT HEAD WITHOUT CONTRAST: HISTORY: Altered mental status. COMPARISON: 09/22/2016. Areas of decreased attenuation are present in the periventricular white matter. This represents small vessel ischemic disease. There is no intraparenchymal hemorrhage, mass or midline shift. The ventricular system and cortical sulci are dilated consistent with moderate volume loss. There is no extracerebral collection. The visualized sinuses are clear. IMPRESSION: 1. Small vessel ischemic disease. 2. Moderate volume loss. Signed by Prosper Chinchilla MD 11/03/2016 09:57 A
[2016-11-03 14:00] VITALS: BP 147/65
[2016-11-03] MEDS: TAMSULOSIN 0.4 MG CAP PO SCH ×2 (20:59→21:00)
[2016-11-03] MEDS: SIMVASTATIN 10 MG TAB PO SCH ×2 (20:59→21:00)
[2016-11-03] MEDS: LEVEMIR (INSULIN DETEMIR) 1 UNITS/0.01ML SC SCH (21:00)
[2016-11-03 22:00] VITALS: BP 119/57
[2016-11-04] MEDS: HEPARIN SOD (PORCINE) 5000 UNITS/ML VIAL SC SCH ×3 (05:37→21:05)
[2016-11-04] MEDS: LEVOTHYROXINE 0.05 MG TAB (50 MCG) PO SCH (05:37)
[2016-11-04] MEDS: VANCOMYCIN HCL 750 MG, VIAL MATE ADAPTER 1 EACH in D5W 250 ML IV SCH (05:37)
[2016-11-04] MEDS: SLF 3 ML SYR IV SCH ×3 (05:38→22:00)
[2016-11-04 06:00] VITALS: BP 144/68
[2016-11-04 07:06] LABS: BASO % 0.3 % (0.0-1.0); EOS # 0.3 K/mm3 (0.0-0.50); LARGE UNSTAINED CELL # 0.2 K/mm3 (0.0-0.4); LARGE UNSTAINED CELL % 2.1 % (0.0-4.0); LYMPH # 1.1 K/mm3 (1.5-4.5); LYMPH % 13.5 % (24.0-44.0); MEAN CORPUSCULAR HEMOGLOBIN 30.5 pg (27.0-33.0); MEAN CORPUSCULAR HGB CONC 32.5 g/dl (32.0-36.5); MEAN CORPUSCULAR VOLUME 93.9 fl (80.0-96.0); MONO # 0.4 K/mm3 (0.0-0.8); MONO % 5.9 % (0.0-5.0); NEUTROPHILS # 5.4 K/mm3 (1.8-7.7); NEUTROPHILS % 74.2 % (36.0-66.0); PLATELET COUNT, AUTOMATED 478 k/mm3 (150-450); RED CELL DISTRIBUTION WIDTH 14.7 % (11.5-14.5); WHITE BLOOD COUNT 7.3 K/mm3 (4.0-10.0)
[2016-11-04 07:13] LABS: ANION GAP 3 MEQ/L (8-16); BLOOD UREA NITROGEN 20 MG/DL (7-18); CALCIUM LEVEL 7.6 MG/DL (8.8-10.2); CARBON DIOXIDE LEVEL 32 MEQ/L (21-32); CHLORIDE LEVEL 102 MEQ/L (98-107); CREATININE FOR GFR 0.94 MG/DL (0.70-1.30); GLOMERULAR FILTRATION RATE > 60.0 (>35); GLUCOSE, FASTING 62 MG/DL (83-110); POTASSIUM SERUM 4.1 MEQ/L (3.5-5.1); SODIUM LEVEL 137 MEQ/L (136-145)
[2016-11-04] MEDS: HumaLOG INSULIN (NovoLOG) PER UNIT SC SCH ×4 (07:46→21:00)
--- NOTE | 2016-11-04 08:20 | IPNPDOC ---
Subjective Date Seen The patient was seen on 11/04/16. Subjective Chief Complaint/HPI The patient is a 86-year-old male admitted with a reason for visit of Sepsis. Events since last encounter Denies any complaints. Lethargic, poor historian. General: Reports: ROS Unobtainable, Denies: Chills, Fatigue, Malaise, Night Sweats, Normal Appetite, Other Symptoms Constitutional: Denies: Chills, Fatigue, Fever, Lethargy, Malaise, Night Sweats , Other, Weakness, Weight Loss Eyes: Denies: Conjunctivae inflammation, Eyelid inflammation, Other, Pain, Redness, Vision change ENT: Denies: Dysphagia, Ear Pain, Epistaxis, Head Aches, Other Symptoms, Post Nasal Drip, Sinus Congestion, Sore Throat Skin: Denies: Breakdown, Bruising, Dry, Itching, Jaundice, Lesions, Nail Changes, Other, Rash Pulmonary: Denies: Cough, Dyspnea, Other Symptoms, Pleuritic Chest Pain Cardiovascular: Denies: Chest Pain, Edema, Lt Headedness, Orthopnea, Other Symptoms, Palpitations, Paroxysmal Noc. Dyspnea Gastrointestinal: Denies: Abdominal Pain, Constipation, Diarrhea, Hematochezia , Melena, Nausea, Other Symptoms, Vomiting Genitourinary: Denies: Dysuria, Frequency, Hematuria, Incontinence, Other Symptoms, Retention Hematologic: Denies: Bleeding Excessively, Bruising, Enlarged Lymph Nodes, Other Hematologic, Petecchia, Purpura Objective Physical Examination General Exam: Positive: Alert, No Acute Distress, Other (elderly, frail) Eye Exam: Positive: Conjunctiva & lids normal, PERRLA ENT Exam: Positive: Atraumatic, Mucous membr. moist/pink Neck Exam: Positive: Supple Chest Exam: Positive: Clear to auscultation, Normal air movement Heart Exam: Positive: Murmurs, Rate Normal, Regular Rhythm Abdomen Exam: Positive: Normal bowel sounds, Soft Extremity Exam: Positive: Other (bilateral heel ulcers, heel protectors in place) Psych Exam: Negative: Oriented x 3 (Oriented to person and place.) Assessment /Plan Problems (1) Bacteremia due to methicillin resistant Staphylococcus aureus Status: Acute Problem Specific Plan: Consult Specialist, Monitor Clinically Problem Text: Day #10 IV Vancomycin Repeat BCx - 1+, 1 NTD ID c/s appreciated - to complete 6 weeks - repeat BCx till negative TTE no vegetations + murmur - new? (2) Hip fracture Status: Acute Problem Specific Plan: Consult Specialist, Monitor Clinically Problem Text: POD #8 for removal infected left hip prosthesis, total hip replacement antimicrobial cement placed with new hip d/w ortho, assistance appreciated (3) Urinary retention Status: Chronic Problem Specific Plan: Monitor Clinically Problem Text: mc catheter, likely will be chronic continue proscar, flomax (4) CAD (coronary artery disease) Status: Chronic Problem Text: s/p CABG x 6 as per documentation (5) Dementia Status: Chronic Problem Specific Plan: Monitor Clinically, Repeat Labs, Repeat Tests Problem Text: Like TME complicated with underlying dementia. As above for treatment for bacteremia. CT head no acute pathology (6) Parkinson disease Status: Chronic Problem Specific Plan: Monitor Clinically (7) Diabetes Status: Chronic Problem Specific Plan: Repeat Labs Problem Text: Continue modified diet, insulin sliding scale. (8) Hypothyroidism Status: Chronic Problem Text: continue synthroid. (9) Anemia Status: Chronic Problem Specific Plan: Monitor Clinically (10) Dysphagia Status: Chronic Problem Specific Plan: Monitor Clinically Problem Text: Modified diet - pureed. (11) Ulcer of heel Status: Chronic Problem Specific Plan: Consult Specialist, Monitor Clinically (12) Dyslipidemia Status: Chronic Problem Text: Continue Zocor. (13) Sepsis Status: Resolved Response to Treatment: Progressing Discussed With: Patient Problem Specific Plan: Consult Specialist, Monitor Clinically, Repeat Labs, Repeat Tests Problem Text: Sepsis on admission - bacteremia. As per above for MRSA bacteremia. Plan/VTE VTE Prophylaxis Ordered?: Yes (Heparin SC) Plan/Urinary Catheter Urinary Catheter: D/C Mc Reason for insertion/continuin: Acute obstruct/retention (placed for acute urinary retention - will attempt trial of void today) Plan Diet: Continue Current Therapy: PT, OT Diagnostics: Repeat Labs in AM, Obtain Cultures VS, I&O, 24H, Fishbone Vital Signs/I&O Vital Signs Date Time Temp Pulse Resp B/P Pulse Ox O2 Delivery O2 Flow Rate FiO2 11/04/16 06:00 98.5 77 16 144/68 98 Room Air 10/31/16 14:00 3.0 I&O- Last 24 Hours up to 6 AM 11/04/16 06:00 Intake Total 1510 ml Output Total 1850 ml Balance -340 ml Laboratory Data 24H LABS Laboratory Tests 2 11/03/16 11:46: Bedside Glucose (Misc Panel) 127H 11/03/16 16:33: Bedside Glucose (Misc Panel) 94 11/03/16 19:57: Bedside Glucose (Misc Panel) 298H 11/03/16 21:35: Bedside Glucose (Misc Panel) 378H 11/03/16 22:06: Ammonia 31, Lactic Acid Level 1.8 11/04/16 06:34: Anion Gap 3L, White Blood Count 7.3, Red Blood Count 2.97L, Hemoglobin 9.1L, Hematocrit 27.9L, Mean Corpuscular Volume 93.9, Mean Corpuscular Hemoglobin 30.5 , Mean Corpuscular Hemoglobin Concent 32.5, Red Cell Distribution Width 14.7H, Platelet Count 478H, Neutrophils (%) (Auto) 74.2H, Lymphocytes (%) (Auto) 13.5L , Monocytes (%) (Auto) 5.9H, Eosinophils (%) (Auto) 4.0H, Basophils (%) (Auto) 0.3, Neutrophils # (Auto) 5.4, Lymphocytes # (Auto) 1.1L, Monocytes # (Auto) 0.4 , Eosinophils # (Auto) 0.3, Basophils # (Auto) 0.0, Blood Urea Nitrogen 20H, Creatinine 0.94, Sodium Level 137, Potassium Level 4.1, Chloride Level 102, Carbon Dioxide Level 32, Calcium Level 7.6L, Glomerular Filtration Rate > 60.0, Large Unclassified Cells # 0.2, Large Unclassified Cells % 2.1 CBC/BMP Laboratory Tests 11/04/16 06:34 Calcium Level 7.6 L, Red Blood Count 2.97 L, Mean Corpuscular Volume 93.9, Mean Corpuscular Hemoglobin 30.5, Mean Corpuscular Hemoglobin Concent 32.5, Red Cell Distribution Width 14.7 H, Neutrophils (%) (Auto) 74.2 H, Lymphocytes (%) (Auto ) 13.5 L, Monocytes (%) (Auto) 5.9 H, Eosinophils (%) (Auto) 4.0 H, Basophils (% ) (Auto) 0.3, Neutrophils # (Auto) 5.4, Lymphocytes # (Auto) 1.1 L, Monocytes # (Auto) 0.4, Eosinophils # (Auto) 0.3, Basophils # (Auto) 0.0 Microbiology Microbiology 11/04/16 Blood Culture, Received Pending 11/03/16 Blood Culture, Received Pending 11/03/16 Blood Culture, Received Pending 11/03/16 Blood Culture - Preliminary, Resulted No growth after 24 hours . All specim... 11/01/16 Blood Culture - Preliminary, Resulted 11/01/16 Blood Culture - Preliminary, Resulted No Growth after 72 hours. All specime... 10/31/16 Blood Culture - Final, Complete Staph.aureus Methicillin Resis 10/31/16 Blood Culture - Final, Complete Staph.aureus Methicillin Resis 10/28/16 Blood Culture - Final, Complete Staph.aureus Methicillin Resis 10/28/16 Blood Culture - Final, Complete Staph.aureus Methicillin Resis 10/26/16 Blood Culture - Final, Complete Staph.aureus Methicillin Resis 10/26/16 Blood Culture - Final, Complete Staph.aureus Methicillin Resis 10/31/16 Stool Occult Blood (ALBINO) - Final, Complete 10/26/16 Influenza Virus Type A Antigen - Final, Complete 10/26/16 Influenza Virus Type B Antigen - Final, Complete 10/26/16 Urine Culture - Final, Complete 10/27/16 Gram Stain - Final, Complete 10/27/16 Wound Culture - Final, Complete Staph.aureus Methicillin Resis 10/27/16 Anaerobic Culture - Final, Complete 10/27/16 Anaerobic Culture - Final, Complete 10/27/16 Gram Stain - Final, Complete 10/27/16 Abscess Culture - Final, Complete Staph.aureus Methicillin Resis BARBARA KENNEDY MD Nov 04, 2016 08:19
[2016-11-04 08:34] VITALS: BP 126/72
[2016-11-04 08:37] VITALS: BP 126/72
[2016-11-04] MEDS: POLYVINYL ALCOHOL OPHTH SOLN 15 ML(LIQUITEARS) OU SCH (09:00)
[2016-11-04] MEDS: METOPROLOL SUCC (TopROL XL) 50MG **XL** TAB PO SCH (09:06)
[2016-11-04] MEDS: CYANOCOBALAMIN 500 MCG TAB PO SCH (09:07)
[2016-11-04] MEDS: ASPIRIN 81 MG CHEW TABLET PO SCH (09:07)
[2016-11-04] MEDS: SENOKOT S TAB PO SCH ×2 (09:07→21:05)
[2016-11-04] MEDS: rOPINIRole 1MG TAB PO SCH ×2 (09:07→21:05)
[2016-11-04] MEDS: FINASTERIDE 5 MG TAB PO SCH (09:07)
[2016-11-04] MEDS: FERROUS SULFATE 325MG TAB PO SCH (09:08)
[2016-11-04] MEDS: PRIMIDONE 50 MG TAB PO SCH ×2 (09:08→21:05)
[2016-11-04] MEDS: MULTIVITAMINS/MINERALS THERAP 1 TAB PO SCH (09:08)
[2016-11-04] MEDS: OLANZapine 5 MG TAB PO SCH (09:08)
[2016-11-04] MEDS: MIRALAX *UNIT DOSE* 17GM PACKET PO SCH (09:09)
[2016-11-04 14:00] VITALS: BP 162/73
--- NOTE | 2016-11-04 19:11 | PHACANCOPD ---
PHARMACY VANCOMYCIN DOSING Pt Demographics Demographics Patient Age:86 , Weight:66.600 , Gender: male Adjusted Body Weight Date: 10/27/16, Adjusted Body Weight: [72.6] Kg Vancomycin Vancomycin indication: Infected Left Hip Prosthesis/Sepsis Vancomycin Target Ranges: 15-20 mcg/ml Vancomycin Load Y/N: No Load Dose Date Time Vancomycin Load Dose: Date: Time: Vancomycin Dose Date: 11/04/16. Current Vancomycin Dose: [VANCO 750MG IV Q18H@0000] Date: 11/01/16. Current Vancomycin Dose: [resched Vancomycin 750mg IV q12h@05] Date: 10/27/16. Current Vancomycin Dose: [750MG Q12H] Intermittent Dosing?: No Labs Labs Item Value Date Time Creatinine 0.93 MG/DL 11/03/16 0643 Creatinine 0.94 MG/DL 11/04/16 0634 Vancomycin Level Trough 20.4 UG/ML H 11/01/16 1156 Vancomycin Level Trough 23.7 UG/ML H 11/04/16 1603 White Blood Count 8.4 K/mm3 11/02/16 0613 White Blood Count 7.5 K/mm3 11/03/16 0643 White Blood Count 7.3 K/mm3 11/04/16 0634 Micro Microbiology 11/04/16 Blood Culture, Received Pending 11/03/16 Blood Culture - Preliminary, Resulted 11/03/16 Blood Culture, Received Pending 11/03/16 Blood Culture - Preliminary, Resulted No growth after 24 hours . All specim... 11/01/16 Blood Culture - Final, Complete Staph.aureus Methicillin Resis 11/01/16 Blood Culture - Preliminary, Resulted No Growth after 72 hours. All specime... 10/31/16 Blood Culture - Final, Complete Staph.aureus Methicillin Resis 10/31/16 Blood Culture - Final, Complete Staph.aureus Methicillin Resis 10/28/16 Blood Culture - Final, Complete Staph.aureus Methicillin Resis 10/28/16 Blood Culture - Final, Complete Staph.aureus Methicillin Resis 10/26/16 Blood Culture - Final, Complete Staph.aureus Methicillin Resis 10/26/16 Blood Culture - Final, Complete Staph.aureus Methicillin Resis 10/31/16 Stool Occult Blood (ALBNIO) - Final, Complete 10/26/16 Influenza Virus Type A Antigen - Final, Complete 10/26/16 Influenza Virus Type B Antigen - Final, Complete 10/26/16 Urine Culture - Final, Complete 10/27/16 Gram Stain - Final, Complete 10/27/16 Wound Culture - Final, Complete Staph.aureus Methicillin Resis 10/27/16 Anaerobic Culture - Final, Complete 10/27/16 Anaerobic Culture - Final, Complete 10/27/16 Gram Stain - Final, Complete 10/27/16 Abscess Culture - Final, Complete Staph.aureus Methicillin Resis Creatinine Clearance Date:10/27/16. Creatinine Clearance: [40]. Pending Labs VANCO TROUGH 11/06/16 @ 1100 Assessment and Plan Maintaining Current Dose?: No Reason for dose change: Trough too high Pharmacist Note Pharmacist Note Date: 11/04/16. Pharmacist note: Patients trough was elevated (23.7). Dose was held until midnight at which time we will initiate 750mg iv [id number]. Patients renal function has remained consistent. trough is scheduled to be drawn after 3 doses of the new schedule (11/06 @ 1100). Continue to monitor renal function and adjust dosing as needed. 11/01: Patient's trough came back at 20.4. He already received 1300 dose today, so rescheduled Vancomycin dose to restart tomorrow morning at 5am to give patient time to clear some of the dose. Dr. Garcia has been consulted. Patient is still have positive MRSA consulted. We will continue to monitor and make changes as necessary. 10/31/16: Re-timed vancomycin trough that was scheduled for 1300 today for 1300 tomorrow, 11/01/16, due to patient receiving blood transfusion at that time today. We will follow-up tomorrow when level results and adjust dose if needed. 10/30/16: Day #5 vancomycin therapy for infected left hip prosthesis now s/p removal POD#3. Blood and wound cultures have resulted positive growth for MRSA sensitive to vancomycin with an ALBINO<0.5. WBC is currently WNL, CRP is still elevated but is trending down, and patient has been febrile within the past 24 hours. The patient's serum creatinine has improved greatly since initial trough level from 1.27 to 0.93 today. I have scheduled a trough to be drawn 10/31/16 @ 1200 to ensure that we are maintaining adequate trough levels. We will continue to monitor and make adjustments as needed. Date: 10/27/16. Pharmacist note:Trough of 17 is within target range. Will continue current dosing. Will continue to monitor and maje adjustments as needed. [facility] Nov 04, 2016 19:11
[2016-11-04] MEDS: LEVEMIR (INSULIN DETEMIR) 1 UNITS/0.01ML SC SCH (21:00)
[2016-11-04] MEDS: SIMVASTATIN 10 MG TAB PO SCH (21:05)
[2016-11-04] MEDS: TAMSULOSIN 0.4 MG CAP PO SCH (21:05)
[2016-11-05] MEDS: VANCOMYCIN HCL 750 MG, VIAL MATE ADAPTER 1 EACH in D5W 250 ML IV SCH ×2 (00:50→17:39)
[2016-11-05] MEDS: LEVOTHYROXINE 0.05 MG TAB (50 MCG) PO SCH (05:43)
[2016-11-05] MEDS: SLF 3 ML SYR IV SCH ×3 (05:43→20:43)
[2016-11-05] MEDS: HEPARIN SOD (PORCINE) 5000 UNITS/ML VIAL SC SCH ×3 (05:43→20:43)
[2016-11-05 06:00] VITALS: BP 135/60
[2016-11-05 06:56] LABS: BASO % 0.2 % (0.0-1.0); EOS # 0.3 K/mm3 (0.0-0.50); EOS % 3.5 % (0.0-3.0); LARGE UNSTAINED CELL # 0.2 K/mm3 (0.0-0.4); LARGE UNSTAINED CELL % 2.2 % (0.0-4.0); LYMPH # 1.2 K/mm3 (1.5-4.5); LYMPH % 15.5 % (24.0-44.0); MEAN CORPUSCULAR HEMOGLOBIN 31.3 pg (27.0-33.0); MEAN CORPUSCULAR HGB CONC 33.3 g/dl (32.0-36.5); MONO # 0.5 K/mm3 (0.0-0.8); MONO % 6.1 % (0.0-5.0); NEUTROPHILS # 5.7 K/mm3 (1.8-7.7); NEUTROPHILS % 72.4 % (36.0-66.0); PLATELET COUNT, AUTOMATED 474 k/mm3 (150-450); RED CELL DISTRIBUTION WIDTH 14.7 % (11.5-14.5); WHITE BLOOD COUNT 7.8 K/mm3 (4.0-10.0)
[2016-11-05 07:04] LABS: ANION GAP 6 MEQ/L (8-16); BLOOD UREA NITROGEN 18 MG/DL (7-18); CALCIUM LEVEL 7.8 MG/DL (8.8-10.2); CARBON DIOXIDE LEVEL 29 MEQ/L (21-32); CHLORIDE LEVEL 102 MEQ/L (98-107); CREATININE FOR GFR 0.88 MG/DL (0.70-1.30); GLOMERULAR FILTRATION RATE > 60.0 (>35); GLUCOSE, FASTING 54 MG/DL (83-110); POTASSIUM SERUM 4.2 MEQ/L (3.5-5.1); SODIUM LEVEL 137 MEQ/L (136-145)
[2016-11-05] MEDS: HumaLOG INSULIN (NovoLOG) PER UNIT SC SCH ×4 (07:30→20:10)
[2016-11-05] MEDS ORDERED: GENTAMICIN 10 MG/ML 2ML VIAL*PRES.FREE* (J1580) IV ONE (08:15)
[2016-11-05 09:00] VITALS: BP 157/73
[2016-11-05] MEDS: PRIMIDONE 50 MG TAB PO SCH ×2 (09:24→20:43)
[2016-11-05] MEDS: rOPINIRole 1MG TAB PO SCH ×2 (09:25→20:42)
[2016-11-05] MEDS: CYANOCOBALAMIN 500 MCG TAB PO SCH (09:27)
[2016-11-05] MEDS: MULTIVITAMINS/MINERALS THERAP 1 TAB PO SCH (09:28)
[2016-11-05] MEDS: OLANZapine 5 MG TAB PO SCH (09:28)
[2016-11-05] MEDS: ASPIRIN 81 MG CHEW TABLET PO SCH (09:29)
[2016-11-05] MEDS ORDERED: GENTAMICIN IV ONE (09:30)
[2016-11-05] MEDS: FERROUS SULFATE 325MG TAB PO SCH (09:30)
[2016-11-05] MEDS ORDERED: D5W IV ONE (09:30)
[2016-11-05] MEDS: METOPROLOL SUCC (TopROL XL) 50MG **XL** TAB PO SCH (09:32)
[2016-11-05] MEDS: FINASTERIDE 5 MG TAB PO SCH (09:34)
[2016-11-05] MEDS: SENOKOT S TAB PO SCH ×2 (09:35→20:43)
[2016-11-05] MEDS: POLYVINYL ALCOHOL OPHTH SOLN 15 ML(LIQUITEARS) OU SCH (09:37)
[2016-11-05] MEDS: MIRALAX *UNIT DOSE* 17GM PACKET PO SCH (09:39)
--- NOTE | 2016-11-05 10:57 | IPNPDOC ---
Subjective Date Seen The patient was seen on 11/05/16. Subjective Chief Complaint/HPI The patient is a 86-year-old male admitted with a reason for visit of Sepsis. General: Reports: ROS Unobtainable Objective Physical Examination General Exam: Positive: No Acute Distress, Other (elderly, frail) Eye Exam: Positive: Conjunctiva & lids normal, PERRLA ENT Exam: Positive: Atraumatic, Mucous membr. moist/pink Neck Exam: Positive: Supple Chest Exam: Positive: Clear to auscultation, Normal air movement Heart Exam: Positive: Murmurs, Rate Normal, Regular Rhythm Abdomen Exam: Positive: Normal bowel sounds, Soft Extremity Exam: Positive: Other (bilateral heel ulcers, heel protectors in place) Psych Exam: Negative: Oriented x 3 (Oriented to person and place.) Assessment /Plan Problems (1) Bacteremia due to methicillin resistant Staphylococcus aureus Status: Acute Problem Specific Plan: Consult Specialist, Monitor Clinically Problem Text: Day #11 IV Vancomycin Repeat BCx - still positive ID c/s appreciated - to complete 6 weeks - repeat BCx till negative TTE no vegetations + murmur - new? Source not clear. Hip? Heel ulcers? Will consult wound care Dr. Gutierrez. One time dose gentamycin today with rifampin added. Appreciated ID consultation. (2) Hip fracture Status: Acute Problem Specific Plan: Consult Specialist, Monitor Clinically Problem Text: POD #9 for removal infected left hip prosthesis, total hip replacement antimicrobial cement placed with new hip d/w ortho, assistance appreciated (3) Urinary retention Status: Chronic Problem Specific Plan: Monitor Clinically Problem Text: mc catheter, likely will be chronic failed TOV yesterday - place mc today continue proscar, flomax (4) CAD (coronary artery disease) Status: Chronic Problem Text: s/p CABG x 6 as per documentation (5) Dementia Status: Chronic Problem Specific Plan: Monitor Clinically, Repeat Labs, Repeat Tests Problem Text: Like TME complicated with underlying dementia. As above for treatment for bacteremia. CT head no acute pathology (6) Parkinson disease Status: Chronic Problem Specific Plan: Monitor Clinically (7) Diabetes Status: Chronic Problem Specific Plan: Repeat Labs Problem Text: Continue modified diet, insulin sliding scale. (8) Hypothyroidism Status: Chronic Problem Text: continue synthroid. (9) Anemia Status: Chronic Problem Specific Plan: Monitor Clinically (10) Dysphagia Status: Chronic Problem Specific Plan: Monitor Clinically Problem Text: Modified diet - pureed. (11) Ulcer of heel Status: Chronic Problem Specific Plan: Consult Specialist, Monitor Clinically (12) Dyslipidemia Status: Chronic Problem Text: Continue Zocor. (13) Sepsis Status: Resolved Response to Treatment: Progressing Discussed With: Patient Problem Specific Plan: Consult Specialist, Monitor Clinically, Repeat Labs, Repeat Tests Problem Text: Sepsis on admission - bacteremia. As per above for MRSA bacteremia. Plan/VTE VTE Prophylaxis Ordered?: Yes (Heparin SC) Plan/Urinary Catheter Urinary Catheter: Place Mc Reason for insertion/continuin: Acute obstruct/retention (placed for acute urinary retention - will attempt trial of void today) Plan Diet: Continue Current Therapy: PT, OT Medications: Start Antibiotics, Taper Antibiotics Diagnostics: Repeat Labs in AM, Obtain Cultures VS, I&O, 24H, [facility] Vital Signs/I&O Vital Signs Date Time Temp Pulse Resp B/P Pulse Ox O2 Delivery O2 Flow Rate FiO2 11/05/16 09:32 72 152/73 11/05/16 09:00 98.9 20 98 Room Air 10/31/16 14:00 3.0 I&O- Last 24 Hours up to 6 AM 11/05/16 06:00 Intake Total 960 ml Output Total 1150 ml Balance -190 ml Laboratory Data 24H LABS Laboratory Tests 2 11/04/16 11:37: Bedside Glucose (Misc Panel) 125H 11/04/16 16:03: Vancomycin Level Trough 23.7H 11/04/16 16:48: Bedside Glucose (Misc Panel) 158H 11/04/16 21:04: Bedside Glucose (Misc Panel) 166H 11/05/16 06:12: Anion Gap 6L, White Blood Count 7.8, Red Blood Count 2.95L, Hemoglobin 9.2L, Hematocrit 27.8L, Mean Corpuscular Volume 94.0, Mean Corpuscular Hemoglobin 31.3 , Mean Corpuscular Hemoglobin Concent 33.3, Red Cell Distribution Width 14.7H, Platelet Count 474H, Neutrophils (%) (Auto) 72.4H, Lymphocytes (%) (Auto) 15.5L , Monocytes (%) (Auto) 6.1H, Eosinophils (%) (Auto) 3.5H, Basophils (%) (Auto) 0.2, Neutrophils # (Auto) 5.7, Lymphocytes # (Auto) 1.2L, Monocytes # (Auto) 0.5 , Eosinophils # (Auto) 0.3, Basophils # (Auto) 0.0, C-Reactive Protein, Quantitative 8.41H, Blood Urea Nitrogen 18, Creatinine 0.88, Sodium Level 137, Potassium Level 4.2, Chloride Level 102, Carbon Dioxide Level 29, Calcium Level 7.8L, Glomerular Filtration Rate > 60.0, Large Unclassified Cells # 0.2, Large Unclassified Cells % 2.2 CBC/BMP Laboratory Tests 11/05/16 06:12 Calcium Level 7.8 L, Red Blood Count 2.95 L, Mean Corpuscular Volume 94.0, Mean Corpuscular Hemoglobin 31.3, Mean Corpuscular Hemoglobin Concent 33.3, Red Cell Distribution Width 14.7 H, Neutrophils (%) (Auto) 72.4 H, Lymphocytes (%) (Auto ) 15.5 L, Monocytes (%) (Auto) 6.1 H, Eosinophils (%) (Auto) 3.5 H, Basophils (% ) (Auto) 0.2, Neutrophils # (Auto) 5.7, Lymphocytes # (Auto) 1.2 L, Monocytes # (Auto) 0.5, Eosinophils # (Auto) 0.3, Basophils # (Auto) 0.0 Microbiology Microbiology 11/05/16 Blood Culture, Received Pending 11/05/16 Blood Culture, Received Pending 11/04/16 Blood Culture - Preliminary, Resulted 11/03/16 Blood Culture - Preliminary, Resulted Staphylococcus Aureus 11/03/16 Blood Culture - Preliminary, Resulted No growth after 24 hours . All specim... 11/03/16 Blood Culture - Preliminary, Resulted No Growth after 48 hours. All Specime... 11/01/16 Blood Culture - Final, Complete Staph.aureus Methicillin Resis 11/01/16 Blood Culture - Preliminary, Resulted No Growth after 72 hours. All specime... 10/31/16 Blood Culture - Final, Complete Staph.aureus Methicillin Resis 10/31/16 Blood Culture - Final, Complete Staph.aureus Methicillin Resis 10/28/16 Blood Culture - Final, Complete Staph.aureus Methicillin Resis 10/28/16 Blood Culture - Final, Complete Staph.aureus Methicillin Resis 10/26/16 Blood Culture - Final, Complete Staph.aureus Methicillin Resis 10/26/16 Blood Culture - Final, Complete Staph.aureus Methicillin Resis 10/31/16 Stool Occult Blood (ALBINO) - Final, Complete 10/26/16 Influenza Virus Type A Antigen - Final, Complete 10/26/16 Influenza Virus Type B Antigen - Final, Complete 10/26/16 Urine Culture - Final, Complete 10/27/16 Gram Stain - Final, Complete 10/27/16 Wound Culture - Final, Complete Staph.aureus Methicillin Resis 10/27/16 Anaerobic Culture - Final, Complete 10/27/16 Anaerobic Culture - Final, Complete 10/27/16 Gram Stain - Final, Complete 10/27/16 Abscess Culture - Final, Complete Staph.aureus Methicillin Resis BARBARA KENNEDY MD Nov 05, 2016 10:57
[2016-11-05 14:00] VITALS: BP 153/66
--- NOTE | 2016-11-05 15:16 | IPN ---
DATE: 11/05/2016 Mr. Pickens is relatively stable. He is back to his baseline according to his when it comes to mental status. I had a long discussion with his . He usually, before he fell and broke his hip, he would walk around the house with unsteady gait from the Parkinson's, but did not use a walker. He is not very verbal but is able to tell her a couple of things, but mostly he mumbles. The plan is for him to go back to [facility] and not to have any more surgeries done. She understands he will need long-term IV antibiotics. Temperature is 98.4, pulse 72, respirations 20, blood pressure 157/73, oxygen saturation 98% on room air. Temperature was 100.3 on 11/03/2016, that was the highest temperature recorded. Heart: Normal S1, S2 with no murmurs. Lungs are clear. No wheezes, rales or rhonchi. Abdomen is soft, nontender. No hepatosplenomegaly. Back: No CVA tenderness. He has a sacral decubitus stage II with some peeling skin and ecchymotic area but there is no drainage. Left hip has a very large incision from hip replacement and there is some bloody discharge that could be expressed on the bottom of the incision. There was some erythema but no discharge from the bottom of the incision. Minimal tenderness. Bilateral heel decubitus ulcers with eschar tissue and both heel ulcers measure about 10 x 8 cm. There is no significant purulence but skin maceration. His blood cultures have remained positive for MRSA since 10/26/2016 until 11/04/2016, with now 11 days of persistent MRSA bacteremia. Concern is persistent focus of infection, whether it is in the hip or endocarditis. LABORATORY DATA: White count is 7.8, hemoglobin 9.2, hematocrit 27.8, platelets 474, 72% neutrophils, 15% lymphocytes, 6% monocytes. Sodium 137, potassium 4.2, chloride 102, bicarbonate 29, BUN 18, creatinine 0.8, glucose 54, calcium 7.8, CRP 8.4, which is down from 27. IMPRESSION: 1. 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 This is concerning. The patient will be given a dose of gentamicin IV and rifampin was added 300 mg by mouth twice a day as he has a prosthesis, even though it was exchanged. His dose of vancomycin is 750 every 18 hours. Will continue to repeat blood cultures until negative. Transesophageal echocardiogram (MARIAN) would be indicated although I not sure if it makes a difference, especially with his age and the fact that they would not pursue anything else, even if the patient has endocarditis, the patient will be treated with 6 weeks of IV antibiotics anyway. 2. Decubitus ulcers of both heels and sacrum. Will consult Dr. Gutierrez and telemedicine consultation. 3. Protein calorie malnutrition. The patient is emaciated, his albumin is 2, will add a high-protein diet. PLAN: Rifampin 300 mg by mouth twice a day, gentamicin times one dose for now, 120 mg IV times one. If he continues to be bacteremic may consider continuing that as well. If bacteremia persists, he will need to have cement removed and further exploration of the left hip. Transthoracic echocardiogram has been done on 11/01/2016 and was of good technical quality, did not show any endocarditis.
--- NOTE | 2016-11-05 18:42 | CR ---
DATE OF CONSULTATION: 11/05/2016 CONSULT REQUESTED BY: Dr. Gomez. REGARDING: Right and left heel wounds and sacral wound. This is an 86-year-old demented male who underwent left hip replacement on September 26, 2016. Postoperative course initially was uneventful and he was admitted to the [facility]. He was found to be febrile on 10/26/2016 and transferred back to [facility]. At that time, the patient had a temperature of 103.7 and an elevated white count. He was started on vancomycin and Zosyn and had positive blood cultures. The patient was reoperated on where the original prosthetic device was removed, wound was irrigated and an antibiotic-coated prosthesis inserted. The drains were placed and the patient was kept on intravenous (IV) antibiotics. The patient has had a persistent positive blood culture with gram-positive cocci despite IV antibiotics. Recent blood work shows a normal white count. The patient has been afebrile since 10/30/2016, has not had a recent chest x-ray and has had removal of his Pierre catheter with urinary retention and now reinsertion of the catheter. His hemoglobin is 9.2 with hematocrit of 27.8. On physical examination, he is an elderly, frail, thin male, who ambulates only with assistance, and at present is from bed to chair status. On the coccyx, there is an unstageable pressure injury measuring 2.0 cm x 3.6 cm.. The wound base shows a discolored, purplish dry eschar, which is fixed. There is no fluctuation or drainage noted The right heel shows a wound cluster measuring 2.5 cm x 1.8 cm with a depth of 0.4 cm. The wound base shows fibrin slough. There is no drainage seen. Wound edges are fixed and there is no bone, tendon or fascia exposed. On the medial aspect of the right heel, there is a wound with a dry, fixed eschar measuring 3.0 cm x 2.5 cm. 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 On the left heel there is a wound measuring 5.6 cm x 7.5 cm with an area of granulation tissue and an area of fixed dark eschar. There is no fluctuation seen and no drainage noted. This is consistent with an unstageable pressure injury. The left hip shows an intact wound with allen in place. There is no erythema or drainage noted. Drain sites are nonerythematous. There is no fluctuation seen. TREATMENT AT THIS TIME: Suggest MRI and/or CT scan of the left hip to ensure that there is no deep fluid and/or abscess at the operative site as this would be the primary site for a persistent positive blood culture. A repeat chest x-ray for baseline should be obtained, Pierre catheter reinserted if the patient is in urinary retention., Heel float boots to right and left heels for offloading is the mainstay of treatment at this time along with the application of Betadine solution applied to the blackened eschar areas which should then be covered with foam dressings. The exposed wound area should be treated with Santyl and a foam dressing. Offloading is the mainstay of treatment and heel float boots should be on at all times. Is not uncommon for deep tissue injuries and/or unstable pressure injuries to progressed to stage III and/or stage IV pressure injuries, as this is a common progression for these types of wounds. This would be evident and present with fluctuation and or purulent drainage from the wound or wound edge or evolving erythema involving the periwound. If this occurs, debridement of the eschar to promote drainage would be indicated. This does not appear to be present at this time. If patient is discharged to [facility], arrangements for followup at the wound care center should be made well in advance to assure early followup. Please keep me abreast of any changes in the patient's clinical status or changes in the appearance of the wound. Thank you for this consult MARIANA
[2016-11-05] MEDS: SANTYL OINT 30GM TOP SCH (19:45)
[2016-11-05] MEDS: SIMVASTATIN 10 MG TAB PO SCH (20:42)
[2016-11-05] MEDS: LEVEMIR (INSULIN DETEMIR) 1 UNITS/0.01ML SC SCH (20:43)
[2016-11-05] MEDS: TAMSULOSIN 0.4 MG CAP PO SCH (20:43)
[2016-11-05 22:00] VITALS: BP 137/65
[2016-11-06] MEDS: SLF 3 ML SYR IV SCH ×3 (05:27→21:16)
[2016-11-06] MEDS: HEPARIN SOD (PORCINE) 5000 UNITS/ML VIAL SC SCH ×3 (05:27→21:16)
[2016-11-06] MEDS: LEVOTHYROXINE 0.05 MG TAB (50 MCG) PO SCH (05:27)
[2016-11-06 05:31] LABS: BASO % 0.3 % (0.0-1.0); EOS # 0.2 K/mm3 (0.0-0.50); EOS % 1.8 % (0.0-3.0); LARGE UNSTAINED CELL # 0.2 K/mm3 (0.0-0.4); LYMPH # 1.3 K/mm3 (1.5-4.5); LYMPH % 14.9 % (24.0-44.0); MEAN CORPUSCULAR HEMOGLOBIN 31.1 pg (27.0-33.0); MEAN CORPUSCULAR HGB CONC 32.9 g/dl (32.0-36.5); MEAN CORPUSCULAR VOLUME 94.6 fl (80.0-96.0); MONO # 0.5 K/mm3 (0.0-0.8); MONO % 5.9 % (0.0-5.0); NEUTROPHILS # 6.5 K/mm3 (1.8-7.7); NEUTROPHILS % 75.1 % (36.0-66.0); PLATELET COUNT, AUTOMATED 462 k/mm3 (150-450); RED CELL DISTRIBUTION WIDTH 14.8 % (11.5-14.5); WHITE BLOOD COUNT 8.7 K/mm3 (4.0-10.0)
[2016-11-06 05:46] LABS: ANION GAP 6 MEQ/L (8-16); BLOOD UREA NITROGEN 28 MG/DL (7-18); CALCIUM LEVEL 7.5 MG/DL (8.8-10.2); CARBON DIOXIDE LEVEL 29 MEQ/L (21-32); CHLORIDE LEVEL 101 MEQ/L (98-107); CREATININE FOR GFR 1.16 MG/DL (0.70-1.30); GLOMERULAR FILTRATION RATE > 60.0 (>35); GLUCOSE, FASTING 121 MG/DL (83-110); POTASSIUM SERUM 4.6 MEQ/L (3.5-5.1); SODIUM LEVEL 136 MEQ/L (136-145)
[2016-11-06 06:00] VITALS: BP 146/68
[2016-11-06] MEDS: MIRALAX *UNIT DOSE* 17GM PACKET PO SCH (08:26)
[2016-11-06] MEDS: HumaLOG INSULIN (NovoLOG) PER UNIT SC SCH ×4 (08:27→21:15)
[2016-11-06] MEDS: SENOKOT S TAB PO SCH ×2 (08:27→21:14)
[2016-11-06] MEDS: FINASTERIDE 5 MG TAB PO SCH (08:28)
[2016-11-06] MEDS: PRIMIDONE 50 MG TAB PO SCH ×2 (08:28→21:13)
[2016-11-06] MEDS: ACETAMINOPHEN TAB 650MG DOSE (2X325MG) PO PRN (08:28)
[2016-11-06] MEDS: rOPINIRole 1MG TAB PO SCH ×2 (08:28→21:13)
[2016-11-06] MEDS: CYANOCOBALAMIN 500 MCG TAB PO SCH (08:28)
[2016-11-06] MEDS: OLANZapine 5 MG TAB PO SCH (08:28)
[2016-11-06] MEDS: POLYVINYL ALCOHOL OPHTH SOLN 15 ML(LIQUITEARS) OU SCH (08:29)
[2016-11-06] MEDS: METOPROLOL SUCC (TopROL XL) 50MG **XL** TAB PO SCH (08:29)
[2016-11-06] MEDS: FERROUS SULFATE 325MG TAB PO SCH (08:29)
[2016-11-06] MEDS: MULTIVITAMINS/MINERALS THERAP 1 TAB PO SCH (08:29)
[2016-11-06] MEDS: ASPIRIN 81 MG CHEW TABLET PO SCH (08:29)
--- NOTE | 2016-11-06 12:05 | IPNPDOC ---
Subjective Date Seen The patient was seen on 11/06/16. Subjective Chief Complaint/HPI The patient is a 86-year-old male admitted with a reason for visit of Sepsis. General: Reports: ROS Unobtainable (Poor historian), Denies: Chills, Fatigue, Malaise, Night Sweats, Normal Appetite, Other Symptoms Pulmonary: Denies: Cough, Dyspnea, Other Symptoms, Pleuritic Chest Pain Cardiovascular: Denies: Chest Pain, Edema, Lt Headedness, Orthopnea, Other Symptoms, Palpitations, Paroxysmal Noc. Dyspnea Gastrointestinal: Denies: Abdominal Pain, Constipation, Diarrhea, Hematochezia , Melena, Nausea, Other Symptoms, Vomiting Objective Physical Examination General Exam: Positive: Cooperative, No Acute Distress, Other (elderly, frail) Eye Exam: Positive: Conjunctiva & lids normal, PERRLA ENT Exam: Positive: Atraumatic, Mucous membr. moist/pink Neck Exam: Positive: Supple Chest Exam: Positive: Clear to auscultation, Normal air movement Heart Exam: Positive: Murmurs, Rate Normal, Regular Rhythm Abdomen Exam: Positive: Normal bowel sounds, Soft Extremity Exam: Positive: Other (bilateral heel ulcers, heel protectors in place) Psych Exam: Negative: Oriented x 3 (Oriented to person and place.) Assessment /Plan Problems (1) Bacteremia due to methicillin resistant Staphylococcus aureus Status: Acute Problem Specific Plan: Consult Specialist, Monitor Clinically Problem Text: Day #12 IV Vancomycin Repeat BCx - still positive although there are some negative cultures interspersed ID c/s appreciated - to complete 6 weeks IV Vanco - repeat BCx till negative TTE no vegetations + murmur - new? Source not clear. Hip? Heel ulcers? Wound consultation appreciated. Rec CT Pelvis, CXR. Wound care as directed. High protein diet. One time dose gentamycin yesterday with rifampin added. Appreciate ID consultation. (2) Hip fracture Status: Acute Problem Specific Plan: Consult Specialist, Monitor Clinically Problem Text: POD #10 for removal infected left hip prosthesis, total hip replacement antimicrobial cement placed with new hip (3) Urinary retention Status: Chronic Problem Specific Plan: Monitor Clinically Problem Text: mc catheter, likely will be chronic failed TOV continue proscar, flomax (4) CAD (coronary artery disease) Status: Chronic Problem Text: s/p CABG x 6 as per documentation (5) Dementia Status: Chronic Problem Specific Plan: Monitor Clinically, Repeat Labs, Repeat Tests Problem Text: Like TME complicated with underlying dementia. As above for treatment for bacteremia. CT head no acute pathology (6) Parkinson disease Status: Chronic Problem Specific Plan: Monitor Clinically (7) Diabetes Status: Chronic Problem Specific Plan: Repeat Labs Problem Text: Continue modified diet, insulin sliding scale. (8) Hypothyroidism Status: Chronic Problem Text: continue synthroid. (9) Anemia Status: Chronic Problem Specific Plan: Monitor Clinically (10) Dysphagia Status: Chronic Problem Specific Plan: Monitor Clinically Problem Text: Modified diet - pureed. (11) Ulcer of heel Status: Chronic Problem Specific Plan: Consult Specialist, Monitor Clinically Problem Text: Follow as per wound care (12) Dyslipidemia Status: Chronic Problem Text: Continue Zocor. (13) Sepsis Status: Resolved Response to Treatment: Progressing Discussed With: Patient Problem Specific Plan: Consult Specialist, Monitor Clinically, Repeat Labs, Repeat Tests Problem Text: Sepsis on admission - bacteremia. As per above for MRSA bacteremia. Plan/VTE VTE Prophylaxis Ordered?: Yes (Heparin SC) Plan/Urinary Catheter Urinary Catheter: Place Mc Reason for insertion/continuin: Acute obstruct/retention (placed for acute urinary retention - will attempt trial of void today) Plan Diet: Continue Current Therapy: PT, OT Medications: Start Antibiotics, Taper Antibiotics Diagnostics: Repeat Labs in AM, Obtain Cultures VS, I&O, 24H, [facility] Vital Signs/I&O Vital Signs Date Time Temp Pulse Resp B/P Pulse Ox O2 Delivery O2 Flow Rate FiO2 11/06/16 08:29 74 146/68 11/06/16 06:00 98.7 20 94 Room Air 10/31/16 14:00 3.0 I&O- Last 24 Hours up to 6 AM 11/06/16 06:00 Intake Total 1230 ml Output Total 950 ml Balance 280 ml Laboratory Data 24H LABS Laboratory Tests 2 11/05/16 17:17: Bedside Glucose (Misc Panel) 180H 11/05/16 19:49: Bedside Glucose (Misc Panel) 322H 11/06/16 05:09: Anion Gap 6L, White Blood Count 8.7, Red Blood Count 2.76L, Hemoglobin 8.6L, Hematocrit 26.1L, Mean Corpuscular Volume 94.6, Mean Corpuscular Hemoglobin 31.1 , Mean Corpuscular Hemoglobin Concent 32.9, Red Cell Distribution Width 14.8H, Platelet Count 462H, Neutrophils (%) (Auto) 75.1H, Lymphocytes (%) (Auto) 14.9L , Monocytes (%) (Auto) 5.9H, Eosinophils (%) (Auto) 1.8, Basophils (%) (Auto) 0.3, Neutrophils # (Auto) 6.5, Lymphocytes # (Auto) 1.3L, Monocytes # (Auto) 0.5 , Eosinophils # (Auto) 0.2, Basophils # (Auto) 0.0, C-Reactive Protein, Quantitative 9.17H, Blood Urea Nitrogen 28#H, Creatinine 1.16, Sodium Level 136 , Potassium Level 4.6, Chloride Level 101, Carbon Dioxide Level 29, Calcium Level 7.5L, Glomerular Filtration Rate > 60.0, Large Unclassified Cells # 0.2, Large Unclassified Cells % 2.0 11/06/16 11:22: 11/06/16 11:29: Bedside Glucose (Misc Panel) 215H CBC/BMP Laboratory Tests 11/06/16 05:09 Calcium Level 7.5 L, Red Blood Count 2.76 L, Mean Corpuscular Volume 94.6, Mean Corpuscular Hemoglobin 31.1, Mean Corpuscular Hemoglobin Concent 32.9, Red Cell Distribution Width 14.8 H, Neutrophils (%) (Auto) 75.1 H, Lymphocytes (%) (Auto ) 14.9 L, Monocytes (%) (Auto) 5.9 H, Eosinophils (%) (Auto) 1.8, Basophils (%) (Auto) 0.3, Neutrophils # (Auto) 6.5, Lymphocytes # (Auto) 1.3 L, Monocytes # ( Auto) 0.5, Eosinophils # (Auto) 0.2, Basophils # (Auto) 0.0 Microbiology Microbiology 11/05/16 Blood Culture - Preliminary, Resulted 11/05/16 Blood Culture - Preliminary, Resulted No growth after 24 hours . All specim... 11/04/16 Blood Culture - Preliminary, Resulted Staphylococcus Aureus 11/03/16 Blood Culture - Final, Complete Staph.aureus Methicillin Resis 11/03/16 Blood Culture - Preliminary, Resulted No Growth after 48 hours. All Specime... 11/03/16 Blood Culture - Preliminary, Resulted No Growth after 72 hours. All specime... 11/01/16 Blood Culture - Final, Complete Staph.aureus Methicillin Resis 11/01/16 Blood Culture - Final, Complete NO GROWTH AFTER 5 DAYS 10/31/16 Blood Culture - Final, Complete Staph.aureus Methicillin Resis 10/31/16 Blood Culture - Final, Complete Staph.aureus Methicillin Resis 10/28/16 Blood Culture - Final, Complete Staph.aureus Methicillin Resis 10/28/16 Blood Culture - Final, Complete Staph.aureus Methicillin Resis 10/31/16 Stool Occult Blood (ALBINO) - Final, Complete 10/27/16 Gram Stain - Final, Complete 10/27/16 Wound Culture - Final, Complete Staph.aureus Methicillin Resis 10/27/16 Anaerobic Culture - Final, Complete 10/27/16 Anaerobic Culture - Final, Complete 10/27/16 Gram Stain - Final, Complete 10/27/16 Abscess Culture - Final, Complete Staph.aureus Methicillin Resis BARBARA KENNEDY MD Nov 06, 2016 12:05
[2016-11-06] MEDS: VANCOMYCIN HCL 750 MG, VIAL MATE ADAPTER 1 EACH in D5W 250 ML IV SCH (12:36)
[2016-11-06 13:19] VITALS: BP 132/54
--- NOTE | 2016-11-06 14:38 | REP ---
CHEST AP LATERAL: 11/06/2016. Comparison: 10/26/2016. AP and lateral seated views show sternotomy wires and clips from prior CABG. Heart is mildly enlarged even allowing for AP technique. There is a lesser degree of inflation and there are calcific plaques on the diaphragm. Mid and lower lung zones with more crowded markings and some patchy atelectasis or infiltrate versus fibrosis. I do not see aortic aneurysm. It is mildly tortuous and ectatic. There is some venous hypertension without dafne edema. Superimposed patchy atelectasis or infiltrate on the left diaphragm compared to the previous study and seen posteriorly in the lower lung zone below the diaphragmatic level on the lateral view. Degenerative changes of the shoulders and spine without acute compression. Impression: 1. Prior CABG and calcified diaphragms noted as before. 2. Superimposed patchy atelectasis or infiltrate in the posterior lower lung zones, left greater than right. Small effusion suspected. 3. Some cardiomegaly and pulmonary venous hypertension. No dafne edema. Signed by Adonis Walker MD 11/06/2016 08:29 P
[2016-11-06] MEDS: LEVEMIR (INSULIN DETEMIR) 1 UNITS/0.01ML SC SCH (21:00)
[2016-11-06] MEDS: SIMVASTATIN 10 MG TAB PO SCH (21:13)
[2016-11-06] MEDS: TAMSULOSIN 0.4 MG CAP PO SCH (21:14)
[2016-11-06 22:00] VITALS: BP 150/65
[2016-11-07] MEDS: LEVOTHYROXINE 0.05 MG TAB (50 MCG) PO SCH (05:30)
[2016-11-07] MEDS: HEPARIN SOD (PORCINE) 5000 UNITS/ML VIAL SC SCH ×2 (05:31→16:42)
[2016-11-07] MEDS: VANCOMYCIN HCL 750 MG, VIAL MATE ADAPTER 1 EACH in D5W 250 ML IV SCH (05:31)
[2016-11-07] MEDS: SLF 3 ML SYR IV SCH ×3 (05:32→22:00)
[2016-11-07 05:45] LABS: BASO % 0.2 % (0.0-1.0); EOS # 0.1 K/mm3 (0.0-0.50); EOS % 0.9 % (0.0-3.0); LARGE UNSTAINED CELL # 0.2 K/mm3 (0.0-0.4); LARGE UNSTAINED CELL % 1.8 % (0.0-4.0); LYMPH # 1.2 K/mm3 (1.5-4.5); LYMPH % 10.5 % (24.0-44.0); MEAN CORPUSCULAR HGB CONC 32.2 g/dl (32.0-36.5); MEAN CORPUSCULAR VOLUME 96.1 fl (80.0-96.0); MONO # 0.7 K/mm3 (0.0-0.8); NEUTROPHILS # 7.5 K/mm3 (1.8-7.7); NEUTROPHILS % 79.5 % (36.0-66.0); PLATELET COUNT, AUTOMATED 462 k/mm3 (150-450); RED CELL DISTRIBUTION WIDTH 15.1 % (11.5-14.5); WHITE BLOOD COUNT 9.4 K/mm3 (4.0-10.0)
[2016-11-07 05:56] LABS: CALCIUM LEVEL 7.2 MG/DL (8.8-10.2); CREATININE FOR GFR 1.24 MG/DL (0.70-1.30); GLOMERULAR FILTRATION RATE 58.6 (>35); POTASSIUM SERUM 4.3 MEQ/L (3.5-5.1)
[2016-11-07 06:00] VITALS: BP 125/58
--- NOTE | 2016-11-07 06:45 | REP ---
CT PELVIS WITHOUT IV CONTRAST: 11/06/2016. Comparison: 10/26/2016, 11/20/2014; x-ray 09/24/2016. Clinical history. Right hip arthroplasty revision. Subsequent draining flank/buttock abscess. Reassess. Findings: Noncontrast images were provided. Stool scattered through the distal left colon and sigmoid and into the rectum with rectal vault quite distended. Trace amount of edema and free fluid in the pelvic fat. Small bowel loops are not dilated with small amounts of air or fluid within. No free air. There are advanced degenerative changes in the right hip with subchondral cystic change acetabular roof. No evidence of AVN in the right femur. The left hip shows total hip arthroplasty. There is some flexion of the hip. Femoral stem component is not completely included in the field of view. There are some skin allen laterally at the site of surgical revision. Fluid collection in the gluteus eduardo on the previous study is no longer readily apparent although there appears to be soft tissue density extending to the skin at a location where there are a few surgical clips. I could not exclude that there could be some drainage from this site. There is some subcutaneous air in the gluteus medius likely related to the previous infection. This was not present on the 10/26/16 exam with the initial arthroplasty in place. Degenerative changes and demineralization at the sacrum and SI joints, lower lumbar spine even with the orthopedic metal artifact reduction algorithm. Hyrum artifact around the prosthesis is significant. I cannot discern other areas with a visible or definite fluid collection. Impression: 1. Previous gluteus eduardo abscess is much improved but there is a tract extending toward the skin and skin allen along that hip laterally and at their superior edge a possible sinus tract is visible. No air bubbles in the sinus tract or the gluteus eduardo. There is one fairly large air bubble in the gluteus medius which may be related to evacuated abscess. I do not see other significant or interval change. There is a moderately severe to severe constipation evident. Signed by Adonis Walker MD 11/07/2016 07:58 A
[2016-11-07] MEDS: HumaLOG INSULIN (NovoLOG) PER UNIT SC SCH ×4 (07:30→21:00)
[2016-11-07] MEDS: OLANZapine 5 MG TAB PO SCH (08:26)
[2016-11-07] MEDS: CYANOCOBALAMIN 500 MCG TAB PO SCH (08:26)
[2016-11-07] MEDS: FINASTERIDE 5 MG TAB PO SCH (08:26)
[2016-11-07] MEDS: rOPINIRole 1MG TAB PO SCH ×2 (08:26→22:45)
[2016-11-07] MEDS: SENOKOT S TAB PO SCH ×2 (08:26→22:44)
[2016-11-07] MEDS: ASPIRIN 81 MG CHEW TABLET PO SCH (08:26)
[2016-11-07] MEDS: PRIMIDONE 50 MG TAB PO SCH ×2 (08:27→22:45)
[2016-11-07] MEDS: FERROUS SULFATE 325MG TAB PO SCH (08:27)
[2016-11-07] MEDS: MULTIVITAMINS/MINERALS THERAP 1 TAB PO SCH (08:27)
[2016-11-07] MEDS: POLYVINYL ALCOHOL OPHTH SOLN 15 ML(LIQUITEARS) OU SCH (08:28)
[2016-11-07] MEDS: SANTYL OINT 30GM TOP SCH (08:28)
[2016-11-07] MEDS: METOPROLOL SUCC (TopROL XL) 50MG **XL** TAB PO SCH (08:28)
[2016-11-07] MEDS: MIRALAX *UNIT DOSE* 17GM PACKET PO SCH (09:00)
--- NOTE | 2016-11-07 10:06 | PHACANCOPD ---
PHARMACY VANCOMYCIN DOSING Pt Demographics Demographics Patient Age:86 , Weight:66.200 , Gender: male Adjusted Body Weight Date: 10/27/16, Adjusted Body Weight: [72.6] Kg Events Past 24 Hours Events Past 24 Hours: YES: Change in CrCl, Fever, NO: Dialysis, Diuretic Therapy, Elevation in WBC, Other, Pending Diagnostics , Pending Procedures Vancomycin Vancomycin indication: Infected Left Hip Prosthesis/Sepsis Vancomycin Target Ranges: 15-20 mcg/ml Vancomycin Load Y/N: No Load Dose Date Time Vancomycin Load Dose: Date: Time: Vancomycin Dose Date: 11/07/16. Current Vancomycin Dose: [750mg IV q24h @06] Date: 11/04/16. Current Vancomycin Dose: [VANCO 750MG IV Q18H@0000] Date: 11/01/16. Current Vancomycin Dose: [resched Vancomycin 750mg IV q12h@05] Date: 10/27/16. Current Vancomycin Dose: [750MG Q12H] Intermittent Dosing?: No Labs Labs Item Value Date Time White Blood Count 7.3 K/mm3 11/04/16 0634 White Blood Count 7.8 K/mm3 11/05/16 0612 White Blood Count 8.7 K/mm3 11/06/16 0509 White Blood Count 9.4 K/mm3 11/07/16 0511 Creatinine 0.88 MG/DL 11/05/16 0612 Creatinine 1.16 MG/DL 11/06/16 0509 Creatinine 1.24 MG/DL 11/07/16 0511 C-Reactive Protein, Quantitative 9.19 MG/DL H 11/07/16 0511 C-Reactive Protein, Quantitative 9.17 MG/DL H 11/06/16 0509 C-Reactive Protein, Quantitative 8.41 MG/DL H 11/05/16 0612 Vancomycin Level Trough 15.2 UG/ML 11/06/16 1122 Vital Signs Label Value Date Time Patient Temperature 99.7 degrees F 11/06/16 2200 Temperature Source Core 11/06/16 2200 Micro Microbiology 11/06/16 Blood Culture, Received Pending 11/06/16 Blood Culture, Received Pending 11/05/16 Blood Culture - Preliminary, Resulted Staphylococcus Aureus 11/05/16 Blood Culture - Preliminary, Resulted No Growth after 48 hours. All Specime... 11/04/16 Blood Culture - Final, Complete Staph.aureus Methicillin Resis 11/03/16 Blood Culture - Final, Complete Staph.aureus Methicillin Resis 11/03/16 Blood Culture - Preliminary, Resulted No Growth after 72 hours. All specime... 11/03/16 Blood Culture - Preliminary, Resulted No Growth after 72 hours. All specime... 11/01/16 Blood Culture - Final, Complete Staph.aureus Methicillin Resis 11/01/16 Blood Culture - Final, Complete NO GROWTH AFTER 5 DAYS 10/31/16 Blood Culture - Final, Complete Staph.aureus Methicillin Resis 10/31/16 Blood Culture - Final, Complete Staph.aureus Methicillin Resis 10/28/16 Blood Culture - Final, Complete Staph.aureus Methicillin Resis 10/28/16 Blood Culture - Final, Complete Staph.aureus Methicillin Resis 10/31/16 Stool Occult Blood (ALBINO) - Final, Complete Creatinine Clearance Date:11/07/16. Creatinine Clearance: [35 ml/min using actual BW - actual is less than ideal]. Date:10/27/16. Creatinine Clearance: [40]. Pending Labs VANCO TROUGH 11/06/16 @ 1100 Assessment and Plan Maintaining Current Dose?: No Reason for dose change: Change in serum Cr Pharmacist Note Pharmacist Note Date: 11/07/16. Pharmacist note: vanco trough yesterday was 15.2 on 750mg IV q18h dosing. SCr increased yesterday and continues to increase today. I have preemptively changed his dosing to 750mg IV q24h. Rifampin was started on 11/05 and it appears that he is not tolerating it due to the increase in SCr. Blood cultures drawn on 11/05 positive for staph aureus (1 of 2), repeat cultures on 11/06 are pending. We will continue to monitor renal function and cultures. Date: 11/04/16. Pharmacist note: Patients trough was elevated (23.7). Dose was held until midnight at which time we will initiate 750mg iv [id number]. Patients renal function has remained consistent. trough is scheduled to be drawn after 3 doses of the new schedule (11/06 @ 1100). Continue to monitor renal function and adjust dosing as needed. 11/01: Patient's trough came back at 20.4. He already received 1300 dose today, so rescheduled Vancomycin dose to restart tomorrow morning at 5am to give patient time to clear some of the dose. Dr. Garcia has been consulted. Patient is still have positive MRSA consulted. We will continue to monitor and make changes as necessary. 10/31/16: Re-timed vancomycin trough that was scheduled for 1300 today for 1300 tomorrow, 11/01/16, due to patient receiving blood transfusion at that time today. We will follow-up tomorrow when level results and adjust dose if needed. 10/30/16: Day #5 vancomycin therapy for infected left hip prosthesis now s/p removal POD#3. Blood and wound cultures have resulted positive growth for MRSA sensitive to vancomycin with an ALBINO<0.5. WBC is currently WNL, CRP is still elevated but is trending down, and patient has been febrile within the past 24 hours. The patient's serum creatinine has improved greatly since initial trough level from 1.27 to 0.93 today. I have scheduled a trough to be drawn 10/31/16 @ 1200 to ensure that we are maintaining adequate trough levels. We will continue to monitor and make adjustments as needed. Date: 10/27/16. Pharmacist note:Trough of 17 is within target range. Will continue current dosing. Will continue to monitor and maje adjustments as needed. Kleber Saleh Pharm.D. Nov 07, 2016 09:52
--- NOTE | 2016-11-07 11:03 | IPNPDOC ---
Subjective Date Seen The patient was seen on 11/07/16. Subjective Chief Complaint/HPI The patient is a 86-year-old male admitted with a reason for visit of Sepsis. Events since last encounter Somewhat more alert today. Still poor historian. General: Denies: Chills, Fatigue, Malaise, Night Sweats, Normal Appetite, Other Symptoms, ROS Unobtainable Constitutional: Denies: Chills, Fatigue, Fever, Lethargy, Malaise, Night Sweats , Other, Weakness, Weight Loss Eyes: Denies: Conjunctivae inflammation, Eyelid inflammation, Other, Pain, Redness, Vision change ENT: Denies: Dysphagia, Ear Pain, Epistaxis, Head Aches, Other Symptoms, Post Nasal Drip, Sinus Congestion, Sore Throat Skin: Denies: Breakdown, Bruising, Dry, Itching, Jaundice, Lesions, Nail Changes, Other, Rash Pulmonary: Denies: Cough, Dyspnea, Other Symptoms, Pleuritic Chest Pain Cardiovascular: Denies: Chest Pain, Edema, Lt Headedness, Orthopnea, Other Symptoms, Palpitations, Paroxysmal Noc. Dyspnea Gastrointestinal: Denies: Abdominal Pain, Constipation, Diarrhea, Hematochezia , Melena, Nausea, Other Symptoms, Vomiting Objective Physical Examination General Exam: Positive: Alert, No Acute Distress, Other (elderly, frail) Eye Exam: Positive: Conjunctiva & lids normal, PERRLA ENT Exam: Positive: Atraumatic, Mucous membr. moist/pink Neck Exam: Positive: Supple Chest Exam: Positive: Clear to auscultation, Normal air movement Heart Exam: Positive: Murmurs, Rate Normal, Regular Rhythm Abdomen Exam: Positive: Normal bowel sounds, Soft Extremity Exam: Positive: Other (bilateral heel ulcers, heel protectors in place) Skin Exam: Positive: Breakdown Psych Exam: Negative: Oriented x 3 (Oriented to person and place.) Assessment /Plan Problems (1) Bacteremia due to methicillin resistant Staphylococcus aureus Status: Acute Problem Specific Plan: Consult Specialist, Monitor Clinically Problem Text: Day #13 IV Vancomycin Repeat BCx - still positive although there are some negative cultures interspersed - repeat blood cultures pending ID c/s appreciated - to complete 6 weeks IV Vanco - repeat BCx till negative TTE no vegetations + murmur - new? Source not clear. Hip? Heel ulcers? Wound consultation appreciated. Endocarditis? No MARIAN as will not change plan of care. CT shows significant improvement in previous abscess, possible sinus tract. Wound care as directed. High protein diet. One time dose gentamycin, with rifampin added. Appreciate ID consultation. (2) Hip fracture Status: Acute Problem Specific Plan: Consult Specialist, Monitor Clinically Problem Text: POD #11 for removal infected left hip prosthesis, total hip replacement antimicrobial cement placed with new hip CT pelvis, much improved abscess, possible sinus tract. (3) Anemia Status: Chronic Response to Treatment: Worse Problem Specific Plan: Monitor Clinically, Repeat Labs Problem Text: Hg <8 with Hx CAD Transfuse PRBC today. Monitor H/H. 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 As above for treatment for bacteremia. CT head no acute pathology (7) Parkinson disease Status: Chronic Problem Specific Plan: Monitor Clinically (8) Diabetes Status: Chronic Problem Specific Plan: Repeat Labs Problem Text: Continue modified diet, insulin sliding scale. (9) Hypothyroidism Status: Chronic Problem Text: continue synthroid. (10) Dysphagia Status: Chronic Problem Specific Plan: Monitor Clinically Problem Text: Modified diet - pureed. (11) Ulcer of heel Status: Chronic Problem Specific Plan: Consult Specialist, Monitor Clinically Problem Text: Follow as per wound care (12) Dyslipidemia Status: Chronic Problem Text: Continue Zocor. (13) Sepsis Status: Resolved Response to Treatment: Progressing Discussed With: Patient Problem Specific Plan: Consult Specialist, Monitor Clinically, Repeat Labs, Repeat Tests Problem Text: Sepsis on admission - bacteremia. As per above for MRSA bacteremia. Plan/VTE VTE Prophylaxis Ordered?: Yes (Heparin SC) Plan/Urinary Catheter Urinary Catheter: Place Mc Reason for insertion/continuin: Acute obstruct/retention (placed for acute urinary retention - will attempt trial of void today) Plan Diet: Continue Current Activity: Continue Current Therapy: PT, OT Medications: Start Antibiotics, Taper Antibiotics Diagnostics: Repeat Labs in AM, Obtain Cultures Still persistently bacteremic. Continue IV Vanco + rifampin. Gentamycin 1 time. Seral BCx until negative. Anemia - transfuse PRBC today - serial H/H. Keep Hg>8. VS, I&O, 24H, Fishbone Vital Signs/I&O Vital Signs Date Time Temp Pulse Resp B/P Pulse Ox O2 Delivery O2 Flow Rate FiO2 11/07/16 08:28 80 125/58 11/07/16 06:00 98.9 20 96 Room Air I&O- Last 24 Hours up to 6 AM 11/07/16 06:00 Intake Total 1330 ml Output Total 950 ml Balance 380 ml Laboratory Data 24H LABS Laboratory Tests 2 11/06/16 11:22: Vancomycin Level Trough 15.2 11/06/16 11:29: Bedside Glucose (Misc Panel) 215H 11/06/16 16:44: Bedside Glucose (Misc Panel) 242H 11/06/16 20:44: Bedside Glucose (Misc Panel) 271H 11/07/16 05:11: Anion Gap 7L, White Blood Count 9.4, Red Blood Count 2.50L, Hemoglobin 7.7L, Hematocrit 24.0L, Mean Corpuscular Volume 96.1H, Mean Corpuscular Hemoglobin 31.0, Mean Corpuscular Hemoglobin Concent 32.2, Red Cell Distribution Width 15.1H, Platelet Count 462H, Neutrophils (%) (Auto) 79.5H, Lymphocytes (%) (Auto ) 10.5L, Monocytes (%) (Auto) 7.0H, Eosinophils (%) (Auto) 0.9, Basophils (%) ( Auto) 0.2, Neutrophils # (Auto) 7.5, Lymphocytes # (Auto) 1.2L, Monocytes # ( Auto) 0.7, Eosinophils # (Auto) 0.1, Basophils # (Auto) 0.0, C-Reactive Protein , Quantitative 9.19H, Blood Urea Nitrogen 30H, Creatinine 1.24, Sodium Level 136 , Potassium Level 4.3, Chloride Level 100, Carbon Dioxide Level 29, Calcium Level 7.2L, Glomerular Filtration Rate 58.6, Large Unclassified Cells # 0.2, Large Unclassified Cells % 1.8 11/07/16 08:08: Bedside Glucose (Misc Panel) 89 CBC/BMP Laboratory Tests 11/07/16 05:11 Calcium Level 7.2 L, Red Blood Count 2.50 L, Mean Corpuscular Volume 96.1 H, Mean Corpuscular Hemoglobin 31.0, Mean Corpuscular Hemoglobin Concent 32.2, Red Cell Distribution Width 15.1 H, Neutrophils (%) (Auto) 79.5 H, Lymphocytes (%) ( Auto) 10.5 L, Monocytes (%) (Auto) 7.0 H, Eosinophils (%) (Auto) 0.9, Basophils (%) (Auto) 0.2, Neutrophils # (Auto) 7.5, Lymphocytes # (Auto) 1.2 L, Monocytes # (Auto) 0.7, Eosinophils # (Auto) 0.1, Basophils # (Auto) 0.0 Microbiology Microbiology 11/06/16 Blood Culture, Received Pending 11/06/16 Blood Culture, Received Pending 11/05/16 Blood Culture - Preliminary, Resulted Staphylococcus Aureus 11/05/16 Blood Culture - Preliminary, Resulted No Growth after 48 hours. All Specime... 11/04/16 Blood Culture - Final, Complete Staph.aureus Methicillin Resis 11/03/16 Blood Culture - Final, Complete Staph.aureus Methicillin Resis 11/03/16 Blood Culture - Preliminary, Resulted No Growth after 72 hours. All specime... 11/03/16 Blood Culture - Preliminary, Resulted No Growth after 72 hours. All specime... 11/01/16 Blood Culture - Final, Complete Staph.aureus Methicillin Resis 11/01/16 Blood Culture - Final, Complete NO GROWTH AFTER 5 DAYS 10/31/16 Blood Culture - Final, Complete Staph.aureus Methicillin Resis 10/31/16 Blood Culture - Final, Complete Staph.aureus Methicillin Resis 10/28/16 Blood Culture - Final, Complete Staph.aureus Methicillin Resis 10/28/16 Blood Culture - Final, Complete Staph.aureus Methicillin Resis 10/31/16 Stool Occult Blood (ALBINO) - Final, Complete BARBARA KENNEDY MD Nov 07, 2016 11:03
[2016-11-07 14:00] VITALS: BP 167/72
[2016-11-07] MEDS: LEVEMIR (INSULIN DETEMIR) 1 UNITS/0.01ML SC SCH (21:00)
[2016-11-07 22:00] VITALS: BP 130/62
[2016-11-07] MEDS: SIMVASTATIN 10 MG TAB PO SCH (22:44)
[2016-11-07] MEDS: TAMSULOSIN 0.4 MG CAP PO SCH (22:44)
[2016-11-08] MEDS: LEVOTHYROXINE 0.05 MG TAB (50 MCG) PO SCH (05:50)
[2016-11-08] MEDS: SLF 3 ML SYR IV SCH ×3 (05:54→22:00)
[2016-11-08] MEDS: VANCOMYCIN HCL 750 MG, VIAL MATE ADAPTER 1 EACH in D5W 250 ML IV SCH (05:54)
[2016-11-08 06:00] VITALS: BP 136/63
[2016-11-08 06:50] LABS: BASO % 0.3 % (0.0-1.0); EOS # 0.3 K/mm3 (0.0-0.50); EOS % 4.6 % (0.0-3.0); LARGE UNSTAINED CELL # 0.2 K/mm3 (0.0-0.4); LARGE UNSTAINED CELL % 2.3 % (0.0-4.0); LYMPH # 1.4 K/mm3 (1.5-4.5); MEAN CORPUSCULAR HEMOGLOBIN 30.6 pg (27.0-33.0); MEAN CORPUSCULAR HGB CONC 33.1 g/dl (32.0-36.5); MEAN CORPUSCULAR VOLUME 92.4 fl (80.0-96.0); MONO # 0.5 K/mm3 (0.0-0.8); MONO % 7.2 % (0.0-5.0); NEUTROPHILS # 4.7 K/mm3 (1.8-7.7); NEUTROPHILS % 67.6 % (36.0-66.0); PLATELET COUNT, AUTOMATED 436 k/mm3 (150-450); RED CELL DISTRIBUTION WIDTH 14.8 % (11.5-14.5); WHITE BLOOD COUNT 6.9 K/mm3 (4.0-10.0)
[2016-11-08 07:02] LABS: CALCIUM LEVEL 7.8 MG/DL (8.8-10.2); CREATININE FOR GFR 1.26 MG/DL (0.70-1.30); GLOMERULAR FILTRATION RATE 57.5 (>35); POTASSIUM SERUM 4.5 MEQ/L (3.5-5.1)
[2016-11-08] MEDS: HumaLOG INSULIN (NovoLOG) PER UNIT SC SCH ×4 (07:30→21:00)
[2016-11-08] MEDS: ASPIRIN 81 MG CHEW TABLET PO SCH (10:55)
[2016-11-08] MEDS: PRIMIDONE 50 MG TAB PO SCH ×2 (10:55→22:51)
[2016-11-08] MEDS: FINASTERIDE 5 MG TAB PO SCH (10:55)
[2016-11-08] MEDS: MIRALAX *UNIT DOSE* 17GM PACKET PO SCH (10:55)
[2016-11-08] MEDS: SENOKOT S TAB PO SCH ×2 (10:55→22:51)
[2016-11-08] MEDS: MULTIVITAMINS/MINERALS THERAP 1 TAB PO SCH (10:55)
[2016-11-08] MEDS: METOPROLOL SUCC (TopROL XL) 50MG **XL** TAB PO SCH (10:56)
[2016-11-08] MEDS: rOPINIRole 1MG TAB PO SCH ×2 (10:56→22:50)
[2016-11-08] MEDS: OLANZapine 5 MG TAB PO SCH (10:57)
[2016-11-08] MEDS: POLYVINYL ALCOHOL OPHTH SOLN 15 ML(LIQUITEARS) OU SCH (10:57)
[2016-11-08] MEDS: FERROUS SULFATE 325MG TAB PO SCH (10:57)
[2016-11-08] MEDS: CYANOCOBALAMIN 500 MCG TAB PO SCH (10:57)
[2016-11-08 14:00] VITALS: BP 139/67
[2016-11-08] MEDS: LEVEMIR (INSULIN DETEMIR) 1 UNITS/0.01ML SC SCH (21:00)
[2016-11-08 22:00] VITALS: BP 151/68
[2016-11-08] MEDS: TAMSULOSIN 0.4 MG CAP PO SCH (22:50)
[2016-11-08] MEDS: SIMVASTATIN 10 MG TAB PO SCH (22:51)
--- NOTE | 2016-11-08 23:23 | IPNPDOC ---
Subjective Date Seen The patient was seen on 11/08/16. Subjective Chief Complaint/HPI The patient is a 86-year-old male admitted with a reason for visit of Sepsis. General: Reports: ROS Unobtainable Objective Physical Examination General Exam: Positive: Alert, No Acute Distress, Other (elderly, frail) Eye Exam: Positive: Conjunctiva & lids normal, PERRLA ENT Exam: Positive: Atraumatic, Mucous membr. moist/pink Neck Exam: Positive: Supple Chest Exam: Positive: Clear to auscultation, Normal air movement Heart Exam: Positive: Murmurs, Rate Normal, Regular Rhythm Abdomen Exam: Positive: Normal bowel sounds, Soft Extremity Exam: Positive: Other (bilateral heel ulcers, heel protectors in place) Skin Exam: Positive: Breakdown Psych Exam: Negative: Oriented x 3 (Oriented to person and place.) Assessment /Plan Problems (1) Bacteremia due to methicillin resistant Staphylococcus aureus Status: Acute Problem Specific Plan: Consult Specialist, Monitor Clinically Problem Text: Day #14 IV Vancomycin Repeat BCx from 11/06 are negative for 48 hours ID c/s appreciated - to complete 6 weeks IV Vanco TTE no vegetations + murmur - new? Source not clear. Hip? Heel ulcers? Endocarditis? No MARIAN as will not change plan of care. CT shows significant improvement in previous abscess, possible sinus tract. Wound care as directed. High protein diet. One time dose gentamycin, with rifampin added. Appreciate ID consultation. (2) Hip fracture Status: Acute Problem Specific Plan: Consult Specialist, Monitor Clinically Problem Text: POD #12 for removal infected left hip prosthesis, total hip replacement antimicrobial cement placed with new hip CT pelvis, much improved abscess, possible sinus tract. (3) Anemia Status: Chronic Response to Treatment: Stable Problem Specific Plan: Monitor Clinically, Repeat Labs Problem Text: received multiple transfusion during hospital course Monitor H/H. 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 As above for treatment for bacteremia. CT head no acute pathology (7) Parkinson disease Status: Chronic Problem Specific Plan: Monitor Clinically (8) Diabetes Status: Chronic Problem Specific Plan: Repeat Labs Problem Text: Continue modified diet, insulin sliding scale. (9) Hypothyroidism Status: Chronic Problem Text: continue synthroid. (10) Dysphagia Status: Chronic Problem Specific Plan: Monitor Clinically Problem Text: Modified diet - pureed. (11) Ulcer of heel Status: Chronic Problem Specific Plan: Consult Specialist, Monitor Clinically Problem Text: Follow as per wound care (12) Dyslipidemia Status: Chronic Problem Text: Continue Zocor. (13) Sepsis Status: Resolved Response to Treatment: Progressing Discussed With: Patient Problem Specific Plan: Consult Specialist, Monitor Clinically, Repeat Labs, Repeat Tests Problem Text: Sepsis on admission - bacteremia. As per above for MRSA bacteremia. Plan/VTE VTE Prophylaxis Ordered?: Yes (Heparin SC) Plan/Urinary Catheter Urinary Catheter: Place Mc Reason for insertion/continuin: Acute obstruct/retention (placed for acute urinary retention - will attempt trial of void today) Plan Diet: Continue Current Activity: Continue Current Therapy: PT, OT Medications: Start Antibiotics, Taper Antibiotics Diagnostics: Repeat Labs in AM, Obtain Cultures VS, I&O, 24H, [facility] Vital Signs/I&O Vital Signs Date Time Temp Pulse Resp B/P Pulse Ox O2 Delivery O2 Flow Rate FiO2 11/08/16 22:00 99.0 75 16 151/68 98 Room Air I&O- Last 24 Hours up to 6 AM 11/08/16 06:00 Intake Total 840 ml Output Total 1500 ml Balance -660 ml Laboratory Data 24H LABS Laboratory Tests 2 11/08/16 06:14: Anion Gap 5L, White Blood Count 6.9, Red Blood Count 2.86L, Hemoglobin 8.8L, Hematocrit 26.4L, Mean Corpuscular Volume 92.4, Mean Corpuscular Hemoglobin 30.6 , Mean Corpuscular Hemoglobin Concent 33.1, Red Cell Distribution Width 14.8H, Platelet Count 436, Neutrophils (%) (Auto) 67.6H, Lymphocytes (%) (Auto) 18.0L, Monocytes (%) (Auto) 7.2H, Eosinophils (%) (Auto) 4.6H, Basophils (%) (Auto) 0.3 , Neutrophils # (Auto) 4.7, Lymphocytes # (Auto) 1.4L, Monocytes # (Auto) 0.5, Eosinophils # (Auto) 0.3, Basophils # (Auto) 0.0, C-Reactive Protein, Quantitative 8.52H, Blood Urea Nitrogen 28H, Creatinine 1.26, Sodium Level 137, Potassium Level 4.5, Chloride Level 101, Carbon Dioxide Level 31, Calcium Level 7.8L, Glomerular Filtration Rate 57.5, Large Unclassified Cells # 0.2, Large Unclassified Cells % 2.3 11/08/16 12:04: Bedside Glucose (Misc Panel) 244H 11/08/16 16:44: Bedside Glucose (Misc Panel) 219H 11/08/16 21:35: Bedside Glucose (Misc Panel) 136H CBC/BMP Laboratory Tests 11/08/16 06:14 Calcium Level 7.8 L, Red Blood Count 2.86 L, Mean Corpuscular Volume 92.4, Mean Corpuscular Hemoglobin 30.6, Mean Corpuscular Hemoglobin Concent 33.1, Red Cell Distribution Width 14.8 H, Neutrophils (%) (Auto) 67.6 H, Lymphocytes (%) (Auto ) 18.0 L, Monocytes (%) (Auto) 7.2 H, Eosinophils (%) (Auto) 4.6 H, Basophils (% ) (Auto) 0.3, Neutrophils # (Auto) 4.7, Lymphocytes # (Auto) 1.4 L, Monocytes # (Auto) 0.5, Eosinophils # (Auto) 0.3, Basophils # (Auto) 0.0 Microbiology Microbiology 11/06/16 Blood Culture - Preliminary, Resulted No Growth after 48 hours. All Specime... 11/06/16 Blood Culture - Preliminary, Resulted No Growth after 48 hours. All Specime... 11/05/16 Blood Culture - Final, Complete Staph.aureus Methicillin Resis 11/05/16 Blood Culture - Preliminary, Resulted No Growth after 72 hours. All specime... 11/04/16 Blood Culture - Final, Complete Staph.aureus Methicillin Resis 11/03/16 Blood Culture - Final, Complete Staph.aureus Methicillin Resis 11/03/16 Blood Culture - Final, Complete NO GROWTH AFTER 5 DAYS 11/03/16 Blood Culture - Final, Complete NO GROWTH AFTER 5 DAYS 11/01/16 Blood Culture - Final, Complete Staph.aureus Methicillin Resis 11/01/16 Blood Culture - Final, Complete NO GROWTH AFTER 5 DAYS 10/31/16 Blood Culture - Final, Complete Staph.aureus Methicillin Resis 10/31/16 Blood Culture - Final, Complete Staph.aureus Methicillin Resis 10/31/16 Stool Occult Blood (ALBINO) - Final, Complete MORGAN CLARK DO Nov 08, 2016 23:23
--- NOTE | 2016-11-09 00:18 | IPN ---
DATE: 11/08/2016 Mr. Pickens seems to be stable. There have been no acute events. He is not very verbal. The patient has a history of dementia and Alzheimer's. The plan would be to go back to the half-way. Temperature is 99, maximum temperature (T max) today was 99.7, pulse 75, respirations 16, blood pressure 151/68, oxygen saturation 98% on room air. Heart: Normal S1, S2. No murmurs. Lungs are clear. No wheezes, rales or rhonchi. Abdomen: Soft, nontender. Extremities: No edema. He has bilateral heel ulcers measure about 10 x 8 cm with eschars. Left hip wound wound healing well minimal erythema superiorly LABORATORY DATA: White count is 6.9, hemoglobin 8.8, hematocrit 26.4, platelets for 436, 67% neutrophils, 18% lymphocytes. Sodium 137, potassium 4.5, chloride 101, bicarbonate 31, BUN 28, creatinine 1.26, glucose 61, calcium 7.8, CRP is 8.5 down from 27. Blood cultures are finally negative on 11/06/2016, two sets have been negative. No growth after 48 hours. The patient had received one dose of gentamicin on 11/05/2016, and he was started on rifampin as well. His current dose of vancomycin is 750 mg IV every 24 hours and his vancomycin level is 15.2. IMPRESSION: 1. 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 On IV vancomycin and rifampin, finally has a negative culture after 10 days of persistent bacteremia. The patient will need 6 weeks of IV antibiotics starting on 11/06/2016. He will continue with vancomycin and oral rifampin. 2. Dementia and Parkinson's disease. The patient will be transferred back to [facility] when he is back to baseline. 3. Bilateral heel decubitus and sacral decubitus, improving. The patient had a consultation with the wound clinic, Dr. Gutierrez, on 11/05/2016 . He recommended to continue with heel float boots to the right and left heel, Betadine solution to be applied to the blackened eschar. Plan : 6 weeks of IV vancomycin and rifampin from negative cultures until 12/18 Will follow up in [place] with you Monitor CBC basic CRP vanco level weekly Fax results to my [facility]
[2016-11-09 05:35] LABS: BASO % 0.2 % (0.0-1.0); EOS # 0.3 K/mm3 (0.0-0.50); LARGE UNSTAINED CELL # 0.2 K/mm3 (0.0-0.4); LARGE UNSTAINED CELL % 2.7 % (0.0-4.0); LYMPH # 1.3 K/mm3 (1.5-4.5); MEAN CORPUSCULAR HEMOGLOBIN 30.9 pg (27.0-33.0); MEAN CORPUSCULAR HGB CONC 33.4 g/dl (32.0-36.5); MEAN CORPUSCULAR VOLUME 92.5 fl (80.0-96.0); MONO # 0.6 K/mm3 (0.0-0.8); MONO % 8.3 % (0.0-5.0); NEUTROPHILS # 4.5 K/mm3 (1.8-7.7); NEUTROPHILS % 66.7 % (36.0-66.0); PLATELET COUNT, AUTOMATED 469 k/mm3 (150-450); RED CELL DISTRIBUTION WIDTH 14.6 % (11.5-14.5); WHITE BLOOD COUNT 6.8 K/mm3 (4.0-10.0)
[2016-11-09 05:56] LABS: CALCIUM LEVEL 7.7 MG/DL (8.8-10.2); CREATININE FOR GFR 1.25 MG/DL (0.70-1.30); POTASSIUM SERUM 4.1 MEQ/L (3.5-5.1)
[2016-11-09 06:00] VITALS: BP 122/59
--- NOTE | 2016-11-09 06:05 | PHACANCOPD ---
PHARMACY VANCOMYCIN DOSING Pt Demographics Demographics Patient Age:86 , Weight:70.400 , Gender: male Adjusted Body Weight Date: 10/27/16, Adjusted Body Weight: [72.6] Kg Events Past 24 Hours Events Past 24 Hours: NO: Change in CrCl, Dialysis, Diuretic Therapy, Elevation in WBC, Fever, Other, Pending Diagnostics, Pending Procedures Vancomycin Vancomycin indication: Infected Left Hip Prosthesis/Sepsis Vancomycin Target Ranges: 15-20 mcg/ml Vancomycin Load Y/N: No Load Dose Date Time Vancomycin Load Dose: Date: Time: Vancomycin Dose Date: 11/09/16. Current Vancomycin Dose: [750mg IV q24h @06] Intermittent Dosing?: No Labs Labs Item Value Date Time White Blood Count 6.8 K/mm3 11/09/16517 Creatinine 1.25 MG/DL 11/09/16517 Vancomycin Level Trough 17.1 UG/ML 11/09/16517 Vital Signs Label Value Date Time Patient Temperature 99.0 degrees F 11/08/16 2200 Temperature Source Core 11/08/16 2200 Micro Microbiology 11/06/16 Blood Culture - Preliminary, Resulted No Growth after 48 hours. All Specime... 11/06/16 Blood Culture - Preliminary, Resulted No Growth after 48 hours. All Specime... 11/05/16 Blood Culture - Final, Complete Staph.aureus Methicillin Resis 11/05/16 Blood Culture - Preliminary, Resulted No Growth after 72 hours. All specime... 11/04/16 Blood Culture - Final, Complete Staph.aureus Methicillin Resis 11/03/16 Blood Culture - Final, Complete Staph.aureus Methicillin Resis 11/03/16 Blood Culture - Final, Complete NO GROWTH AFTER 5 DAYS 11/03/16 Blood Culture - Final, Complete NO GROWTH AFTER 5 DAYS 11/01/16 Blood Culture - Final, Complete Staph.aureus Methicillin Resis 11/01/16 Blood Culture - Final, Complete NO GROWTH AFTER 5 DAYS 10/31/16 Blood Culture - Final, Complete Staph.aureus Methicillin Resis 10/31/16 Blood Culture - Final, Complete Staph.aureus Methicillin Resis 10/31/16 Stool Occult Blood (ALBINO) - Final, Complete Creatinine Clearance Date:11/07/16. Creatinine Clearance: [35 ml/min using actual BW - actual is less than ideal]. Date:10/27/16. Creatinine Clearance: [40]. Assessment and Plan Maintaining Current Dose?: Yes Reason for dose change: No Dose Change Pharmacist Note Pharmacist Note Date: 11/09/16. Pharmacist note: Trough of 17.1 is within target range. Will continue current dosing. Will continue to monitor and make adjustments as needed. SYLVIA NINA PHARMACY Nov 09, 2016 06:05
[2016-11-09] MEDS: VANCOMYCIN HCL 750 MG, VIAL MATE ADAPTER 1 EACH in D5W 250 ML IV SCH (06:49)
[2016-11-09] MEDS: LEVOTHYROXINE 0.05 MG TAB (50 MCG) PO SCH (06:51)
[2016-11-09] MEDS: SLF 3 ML SYR IV SCH ×3 (06:51→22:55)
[2016-11-09] MEDS: HumaLOG INSULIN (NovoLOG) PER UNIT SC SCH ×4 (07:30→21:00)
[2016-11-09 08:43] VITALS: BP 145/67
[2016-11-09] MEDS: FINASTERIDE 5 MG TAB PO SCH (09:24)
[2016-11-09] MEDS: OLANZapine 5 MG TAB PO SCH (09:25)
[2016-11-09] MEDS: METOPROLOL SUCC (TopROL XL) 50MG **XL** TAB PO SCH (09:25)
[2016-11-09] MEDS: SENOKOT S TAB PO SCH ×2 (09:25→22:53)
[2016-11-09] MEDS: ASPIRIN 81 MG CHEW TABLET PO SCH (09:25)
[2016-11-09] MEDS: MULTIVITAMINS/MINERALS THERAP 1 TAB PO SCH (09:26)
[2016-11-09] MEDS: rOPINIRole 1MG TAB PO SCH ×2 (09:26→22:53)
[2016-11-09] MEDS: PRIMIDONE 50 MG TAB PO SCH ×2 (09:26→22:54)
[2016-11-09] MEDS: CYANOCOBALAMIN 500 MCG TAB PO SCH (09:27)
[2016-11-09] MEDS: POLYVINYL ALCOHOL OPHTH SOLN 15 ML(LIQUITEARS) OU SCH (09:27)
[2016-11-09] MEDS: FERROUS SULFATE 325MG TAB PO SCH (09:27)
[2016-11-09] MEDS: SANTYL OINT 30GM TOP SCH (09:28)
[2016-11-09] MEDS: MIRALAX *UNIT DOSE* 17GM PACKET PO SCH (09:28)
[2016-11-09 11:07] VITALS: BP 145/67
[2016-11-09 14:00] VITALS: BP 149/65
[2016-11-09] MEDS ORDERED: SODIUM CHLORIDE 0.9% INJ 10 ML SYR IV PRN (15:30)
--- NOTE | 2016-11-09 17:00 | REP ---
Procedure: PICC line insertion with Corky-Ta The procedure was performed under the direct supervision of Dr. Brandon. The risks and benefits of the procedure were explained to the patient and informed consent was obtained. The right basilic vein was localized using ultrasound guidance. The skin was prepped and draped in a sterile fashion. 2% lidocaine was used as a local anesthetic. Using ultrasound guidance the basilic vein was cannulated and a 0.018 guidewire was inserted and advanced to the SVC using fluoroscopic guidance. The needle was removed and a 4.5 Moldovan dilator and peel-away sheath was inserted over the guide wire. A 4.5 Moldovan single lumen catheter was cut to length of 43 cm. The dilator was removed and the catheter was inserted over the guide wire with the tip ending in the SVC. The peel-away sheath was removed and the catheter was flushed with heparinized saline as per Hospital protocol. The catheter was affixed to the skin and a sterile dressing was applied. The the patient tolerated the procedure well and there were no immediate complications. 0.5 minutes of fluoro time was utilized for this procedure. Reviewed by JEWELS Borrero 11/09/2016 04:36 PSigned by Chester Brandon MD 11/09/2016 04:51 P
--- NOTE | 2016-11-09 17:18 | IPN ---
DATE: 11/09/2016 Mr. Pickens has no complaint today. Not particularly interactive though. No issues noted by night staff. VITAL SIGNS: Temperature 99.2, pulse 81, respiratory rate 18, blood pressure 145/67, 97% on room air. Ins and outs notable for a positive fluid balance of 550. Two bowel movements noted yesterday. Weight 70 kilos. BMI is approximately 21. He is awake, answering simple commands. Moist mucous membranes. Neck supple. Breathing symmetrical and rested. Heart is distant sounding. Abdomen is soft, doughy, nontender. LABORATORY DATA: White cell count 6.8, hemoglobin 8.9, platelets 467, BUN 28, creatinine 1.25. Blood cultures are negative from the 8th at 72 hours. ASSESSMENT: My assessment is as follows: This is an 86-year-old with bacteremia due to Methicillin-resistant Staphylococcus aureus (MRSA) related to prosthetic hip prosthesis and foot ulcers. PLAN: Is as follows: 1. Infectious disease. Plan is to continue with IV vancomycin for 6 weeks from 11/06. Being followed by Dr. Garcia. 2. Patient has anemia. Has received transfusions during his stay. 3. Patient has urinary retention. Please do not remove the Pierre catheter for at least several weeks until the patient is in the better medical situation. 4. Patient has coronary artery disease status post coronary artery bypass graft. 5. Dementia. 6. Diabetes. 7. Patient has hypothyroidism. 8. Patient is on a modified diet for dysphagia. 9. Patient has heel ulcers bilaterally. Has been followed by Dr. Gutierrez.
--- NOTE | 2016-11-09 18:31 | IPN ---
DATE: 11/09/2016 TIME PATIENT WAS SEEN: 3:15 p.m. The patient has been seen and examined at the bedside. The patient continues to be severely demented and does not respond to questions. Otherwise, the patient appears to be comfortable and laying comfortably in the bed with the head elevated at 30 degrees. The patient no longer has a temperature elevation. The patient's temperature was 99.5 at the time of examination. PHYSICAL EXAMINATION: VITAL SIGNS: Temperature 99.5, pulse 82, respirations 20, blood pressure 149/65, oxygen was saturating at 93% on room air. GENERAL: The patient is an elderly male who does not respond to any questions and also does not follow commands, head elevated at 30 degrees. HEENT: Normocephalic, atraumatic. Extraocular motor could not be assessed. Mucous membranes moist. NECK: Supple. No neck lymphadenopathy. CARDIOVASCULAR: Regular rate and rhythm. S1, S2. No murmurs, rubs or gallops. LUNGS: Clear to auscultation bilaterally. No wheezes, rales or rhonchi. ABDOMEN: Positive bowel sounds. Soft, nontender, nondistended. No peritoneal signs. No ecchymosis. EXTREMITIES: Bilateral foot ulcer, appears to be healing well. The patient does have pink granulation tissue on bilateral heels, does not have any drainage, was not tender to palpation. The patient's left hip incision was dry, clean and intact. No drainage. Not warm to palpation with good granulation tissue. SKIN: Warm and dry, as stated above. NEUROLOGIC: Could not be assessed due to patient does not follow commands. LABORATORY: WBC 6.8, hemoglobin 8.9, hematocrit is 26.8 with a platelet count of 469 and MCV of 92.5. Sodium 136, potassium 4.1, chloride 101, bicarbonate was 31, BUN was 28, creatinine 1.25, GFR greater than 58, fasting glucose was low. The patient's CRP has been trending down slightly from 8.52 to 8.27. 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 Methicillin-resistant Staphylococcus aureus (MRSA), sepsis with prosthesis joint infection, status post removal of the prosthesis. Currently on vancomycin and rifampin. The patient did have a negative culture after 10 days with persistent bacteremia The patient will need 6 weeks of IV antibiotics starting on 11/06/2016 and will continue the patient with vancomycin and also rifampin. 2. Hypoglycemic last night. The patient's Levemir has been adjusted from 20 nightly to 10 nightly. 3. Dementia with Parkinson's disease. Patient does not follow commands and also does not answer any questions, which complicates care. The patient will need to be transferred back to [facility] when he is back to baseline. 4. Bilateral heel decubitus and sacral decubitus ulcer, improving. The patient had a consultation with the wound clinic with Dr. Gutierrez on 11/05/2016. Dr. Gutierrez recommended to continue the patient on heel float boots to the right and left heel and also Betadine solution applied to the blackened eschar. The patient has been discussed with attending doctor, Dr. Garcia. My preceptor for this patient encounter was Dr. Garica. The preceptor was physically present in the building during the encounter and was fully available. As needed, all aspects of the patient interview, examination, medical decision making process, and medical care plan development were reviewed and approved by the preceptor. The preceptor is aware and concurs with the plan as stated in the body of this note and will attest to such by his/her co-signature. MARIANA
[2016-11-09] MEDS: SODIUM CHLORIDE 0.9% INJ 10 ML SYR IV SCH (18:38)
[2016-11-09] MEDS ORDERED: LEVEMIR (INSULIN DETEMIR) 1 UNITS/0.01ML SC SCH (21:00)
[2016-11-09 22:00] VITALS: BP 153/71
[2016-11-09] MEDS: SIMVASTATIN 10 MG TAB PO SCH (22:53)
[2016-11-09] MEDS: TAMSULOSIN 0.4 MG CAP PO SCH (22:53)
[2016-11-10] MEDS: LEVOTHYROXINE 0.05 MG TAB (50 MCG) PO SCH (05:39)
[2016-11-10] MEDS: SLF 3 ML SYR IV SCH (05:39)
[2016-11-10] MEDS: VANCOMYCIN HCL 750 MG, VIAL MATE ADAPTER 1 EACH in D5W 250 ML IV SCH (05:39)
[2016-11-10] MEDS: SODIUM CHLORIDE 0.9% INJ 10 ML SYR IV SCH (05:39)
[2016-11-10 06:00] VITALS: BP 179/74
[2016-11-10] MEDS: HumaLOG INSULIN (NovoLOG) PER UNIT SC SCH ×2 (08:11→11:56)
[2016-11-10] MEDS ORDERED: FLOM5CAP PO (08:17)
[2016-11-10] MEDS ORDERED: SANT250O8 TOP (08:17)
[2016-11-10] MEDS ORDERED: RIFA150C PO (08:17)
[2016-11-10] MEDS: ACETAMINOPHEN TAB 650MG DOSE (2X325MG) PO PRN (09:38)
[2016-11-10] MEDS: MIRALAX *UNIT DOSE* 17GM PACKET PO SCH (09:38)
[2016-11-10] MEDS: CYANOCOBALAMIN 500 MCG TAB PO SCH (09:38)
[2016-11-10 09:39] VITALS: BP 179/74
[2016-11-10] MEDS: rOPINIRole 1MG TAB PO SCH (09:39)
[2016-11-10] MEDS: FINASTERIDE 5 MG TAB PO SCH (09:39)
[2016-11-10] MEDS: METOPROLOL SUCC (TopROL XL) 50MG **XL** TAB PO SCH (09:39)
[2016-11-10] MEDS: SENOKOT S TAB PO SCH (09:39)
[2016-11-10] MEDS: MULTIVITAMINS/MINERALS THERAP 1 TAB PO SCH (09:39)
[2016-11-10] MEDS: ASPIRIN 81 MG CHEW TABLET PO SCH (09:39)
[2016-11-10] MEDS: PRIMIDONE 50 MG TAB PO SCH (09:39)
[2016-11-10] MEDS: OLANZapine 5 MG TAB PO SCH (09:39)
[2016-11-10] MEDS: FERROUS SULFATE 325MG TAB PO SCH (09:39)
[2016-11-10] MEDS: POLYVINYL ALCOHOL OPHTH SOLN 15 ML(LIQUITEARS) OU SCH (09:40)
--- NOTE | 2016-11-11 05:19 | DSES ---
DATE OF ADMISSION: 10/26/2016 DATE OF DISCHARGE: 11/10/2016 SPECIALISTS INVOLVED IN CARE: 1. Dr. Jimy Field. 2. Dr. Gutierrez. 3. Dr. Garcia. PROCEDURES PERFORMED DURING STAY: 1. Placement of a peripherally inserted central catheter (PICC) line. 2. Removal of a left hip hemiarthroplasty. 3. Total hip replacement using antibiotic cement-coated size #4 summit stem, and a cemented 48 mm acetabular liner on 10/27/2016. SUMMARY OF HOSPITAL COURSE: This is an 86-year-old who presented from [facility] with worsening bilateral heel ulcers, positive blood cultures, and was found to have an infected left prosthetic hip. He was admitted to the hospitalist service, was seen in consultation by orthopedic surgery, went to the operating room (OR) to have the prosthetic removed, which was a quite involved procedure. He had recurrent positive blood cultures from 10/26 until 11/05. The blood cultures as of 11/06 have been negative at 72 hours. Echocardiogram on 11/01 showed no obvious vegetations. A transesophageal echocardiogram (MARIAN) was not completed. The patient was seen in consultation by Dr. Garcia who suggested at least six weeks of intravenous (IV) antibiotic therapy starting from 11/06/2016, with vancomycin and rifampin. He was also seen by Dr. Gutierrez for care of the foot ulcers by telemedicine. On the day of discharge, he is interactive verbally and tolerating diet, has no complaints, was not a particularly good historian. OBJECTIVE: VITAL SIGNS: Temperature 99, pulse 80, respiratory rate 17, blood pressure 129/74, 98% on room air. GENERAL: He is awake, interactive. HEENT: Mucous membranes moist. NECK: Supple. LUNGS: Breathing is symmetrically diminished. I to E ratio is 1:3. HEART: Distant sounding normal S1, S2. ABDOMEN: Soft, doughy, nontender. LABORATORY DATA: White cell count 6.8, hemoglobin 8.9. BUN 28, creatinine 1.25. CRP is 9.02. DISCHARGE INSTRUCTIONS: Followup with Dr. Jimy Field in two weeks, Dr. Ruggiero within a week, Dr. Garcia and Dr. Gutierrez via their instructions. Continue: - Santyl as prescribed - rifampin 300 mg by mouth twice daily for six weeks - Flomax 0.4 mg by mouth daily at bedtime - Tylenol 500 mg by mouth three times a day and every four hours as needed for pain - aspirin 81 mg by mouth daily - Dulcolax 10 mg by mouth daily as needed for constipation - vitamin B12 1000 mg by mouth daily - Senokot-S one tablet by mouth twice daily - ferrous sulfate 325 mg by mouth daily - finasteride 5 mg by mouth daily - Glucerna 1.2 Jorge L by mouth twice daily - Levemir 8 units subcutaneously at bedtime and sliding scale as written - Synthroid 50 mcg by mouth daily - metoprolol succinate 50 mg by mouth daily - milk of magnesia as needed - multivitamin daily - olanzapine 5 mg by mouth daily - MiraLax 17 grams by mouth daily - Systane one drop each eye daily - PreserVision one capsule by mouth twice daily - primidone 100 mg by mouth twice daily - Requip 1 mg by mouth twice daily - simvastatin 10 mg by mouth daily at bedtime - enema as needed He is being discharged with an indwelling Pierre as he has had urinary retention. I recommend keeping that for at least two weeks before trying to remove it. He may need urology followup depending on clinical course. DISCHARGE DIAGNOSES: 1. Methicillin-resistant Staphylococcus aureus (MRSA) bacteremia. 2. Infected left hip prosthetic. 3. Bilateral heel ulcers. 4. Anemia, status post transfusion. 5. Urinary retention. 6. Coronary artery disease. 7. Dementia. 8. Parkinson's disease. 9. Diabetes. 10. Hypothyroidism. 11. Dysphasia. 12. Dyslipidemia. 13. Sepsis present on admission.
== END 2016-11-10 12:35 | disposition home or self-care (01) | DRG 466 ==
LOC: M ED 21:56 → M ED INP 22:50 → EEVIPCON 22:50 → M MSPAV 10-27 00:05 → M PCU 10-27 20:45 → M MS5PR 10-29 12:34
PROVIDERS: ADMIT Internal Medicine; ATTEND Internal Medicine
PROC: 0SPB0JZ Removal of Synthetic Substitute from Left Hip Joint, Open Approach (ICD-10-PCS; 2016-10-27)
PROC: 0SRB049 Replacement of Left Hip Joint with Ceramic on Polyethylene Synthetic Substitute, Cemented, Open Approach (ICD-10-PCS; 2016-10-27)
PROC: 30233N1 Transfusion of Nonautologous Red Blood Cells into Peripheral Vein, Percutaneous Approach (ICD-10-PCS; principal; 2016-10-27 08:15)
DX: T84.52XA Infection and inflammatory reaction due to internal left hip prosthesis, initial encounter (principal); L89.613 Pressure ulcer of right heel, stage 3; A41.01 Sepsis due to Methicillin susceptible Staphylococcus aureus; N17.9 Acute kidney failure, unspecified; E46 Unspecified protein-calorie malnutrition; L89.152 Pressure ulcer of sacral region, stage 2; L89.620 Pressure ulcer of left heel, unstageable; Z79.899 Other long term (current) drug therapy; Z79.82 Long term (current) use of aspirin; I25.10 Atherosclerotic heart disease of native coronary artery without angina pectoris; Z66 Do not resuscitate; E03.9 Hypothyroidism, unspecified; E78.5 Hyperlipidemia, unspecified; E78.4 Other hyperlipidemia; G31.83 Neurocognitive disorder with Lewy bodies; E11.649 Type 2 diabetes mellitus with hypoglycemia without coma; F02.80 Dementia in other diseases classified elsewhere, unspecified severity, without behavioral disturbance, psychotic disturbance, mood disturbance, and anxiety; R33.8 Other retention of urine; Z88.5 Allergy status to narcotic agent; Z88.8 Allergy status to other drugs, medicaments and biological substances; K59.00 Constipation, unspecified

== ENCOUNTER → 2016-10-26 | Outpatient (REF) ==
[2016-10-26 08:34] LABS: MEAN CORPUSCULAR HEMOGLOBIN 32.4 pg (27.0-33.0); MEAN CORPUSCULAR HGB CONC 32.8 g/dl (32.0-36.5); MEAN CORPUSCULAR VOLUME 98.7 fl (80.0-96.0); RED CELL DISTRIBUTION WIDTH 14.1 % (11.5-14.5); WHITE BLOOD COUNT 11.2 K/mm3 (4.0-10.0)
== END ==
LOC: SKLAB3 08:00
PROVIDERS: ATTEND Internal Medicine
DX: R71.8 Other abnormality of red blood cells (principal)

== ENCOUNTER → 2016-11-12 | Outpatient (REF) ==
[~2016-11-12] MED LIST changes: +ASPI81CH PO; +AUGM500T34 PO; +CEFT1INJ3 IM; +CEFT1INJ65 IM; +DULC10SU2 PR; +ENEMENE3 PR; +FERR325T3 PO; +FLOM5CAP PO; +GLUC1.2L PO; +METO-207 PO; +MILKSUS PO; +PRESCAP PO; +RIFA150C PO; +SANT250O8 TOP; +SENN-23 PO; +SENN8.6C PO; +TYLE325T5 PO; +VITA500T3 PO; +VITMTA PO
[2016-11-12 09:24] LABS: INR 1.04
== END ==
LOC: SKLAB4 14:04
PROVIDERS: ATTEND Internal Medicine
DX: Z79.01 Long term (current) use of anticoagulants (principal)

== ENCOUNTER → 2016-11-15 | Outpatient (REF) ==
[2016-11-15 05:07] LABS: MEAN CORPUSCULAR HEMOGLOBIN 30.6 pg (27.0-33.0); MEAN CORPUSCULAR HGB CONC 32.6 g/dl (32.0-36.5); MEAN CORPUSCULAR VOLUME 93.9 fl (80.0-96.0); RED CELL DISTRIBUTION WIDTH 14.3 % (11.5-14.5); WHITE BLOOD COUNT 5.7 K/mm3 (4.0-10.0)
[2016-11-15 05:33] LABS: INR 1.06
[2016-11-15 05:48] LABS: ALBUMIN 1.8 GM/DL (3.2-5.2); ALBUMIN/GLOBULIN RATIO 0.44 (1.00-1.93); ALKALINE PHOSPHATASE 110 U/L (45-117); ALT/SGPT 13 U/L (12-78); ANION GAP 6 MEQ/L (8-16); AST/SGOT 19 U/L (15-37); BILIRUBIN,TOTAL 0.2 MG/DL (0.2-1.0); BLOOD UREA NITROGEN 33 MG/DL (7-18); CARBON DIOXIDE LEVEL 30 MEQ/L (21-32); CHLORIDE LEVEL 100 MEQ/L (98-107); CHOLESTEROL LEVEL 110 MG/DL (<200); CREATININE FOR GFR 1.14 MG/DL (0.70-1.30); GLOMERULAR FILTRATION RATE > 60.0 (>35); GLUCOSE, FASTING 98 MG/DL (83-110); POTASSIUM SERUM 4.7 MEQ/L (3.5-5.1); SODIUM LEVEL 136 MEQ/L (136-145); TOTAL PROTEIN 5.9 GM/DL (6.4-8.2); TRIGLYCERIDES LEVEL 62 MG/DL (<150)
== END ==
LOC: SKLAB4 10:35
PROVIDERS: ATTEND Internal Medicine
DX: D64.9 Anemia, unspecified (principal); Z79.899 Other long term (current) drug therapy; G20 Parkinson's disease

== ENCOUNTER → 2016-11-18 | Outpatient (REF) ==
[2016-11-18 09:46] LABS: INR 1.47
== END ==
LOC: SKLAB4 12:18
PROVIDERS: ATTEND Internal Medicine
DX: Z79.01 Long term (current) use of anticoagulants (principal)

== ENCOUNTER → 2016-11-22 | Outpatient (REF) | LOC: SKLAB4 09:48 | PROVIDERS: ATTEND Internal Medicine | DX: Z51.81 Encounter for therapeutic drug level monitoring (principal); Z79.01 Long term (current) use of anticoagulants; E11.9 Type 2 diabetes mellitus without complications ==

== ENCOUNTER → 2016-11-23 | Outpatient (REF) ==
[2016-11-23 13:41] LABS: INR 1.89
[2016-11-23 13:42] LABS: MEAN CORPUSCULAR HEMOGLOBIN 31.4 pg (27.0-33.0); MEAN CORPUSCULAR VOLUME 95.4 fl (80.0-96.0); RED CELL DISTRIBUTION WIDTH 14.6 % (11.5-14.5); WHITE BLOOD COUNT 6.5 K/mm3 (4.0-10.0)
[2016-11-23 14:20] LABS: ALBUMIN/GLOBULIN RATIO 0.47 (1.00-1.93); ALKALINE PHOSPHATASE 118 U/L (45-117); ALT/SGPT 13 U/L (12-78); ANION GAP 6 MEQ/L (8-16); AST/SGOT 19 U/L (15-37); BILIRUBIN,TOTAL 0.3 MG/DL (0.2-1.0); BLOOD UREA NITROGEN 38 MG/DL (7-18); CALCIUM LEVEL 8.3 MG/DL (8.8-10.2); CARBON DIOXIDE LEVEL 29 MEQ/L (21-32); CHLORIDE LEVEL 102 MEQ/L (98-107); CREATININE FOR GFR 1.16 MG/DL (0.70-1.30); GLOMERULAR FILTRATION RATE > 60.0 (>35); GLUCOSE, FASTING 189 MG/DL (83-110); POTASSIUM SERUM 4.8 MEQ/L (3.5-5.1); SODIUM LEVEL 137 MEQ/L (136-145); TOTAL PROTEIN 6.3 GM/DL (6.4-8.2)
== END ==
LOC: SKLAB4 12:47
PROVIDERS: ATTEND Internal Medicine
DX: E03.9 Hypothyroidism, unspecified (principal); D64.9 Anemia, unspecified

== ENCOUNTER → 2016-11-25 | Outpatient (REF) ==
[2016-11-25 11:00] LABS: INR 2.26
== END ==
LOC: SKLAB4 09:19
PROVIDERS: ATTEND Internal Medicine
DX: Z79.01 Long term (current) use of anticoagulants (principal)

== ENCOUNTER → 2016-11-29 | Outpatient (REF) ==
[2016-11-29 10:54] LABS: INR 2.48
[2016-11-29 10:57] LABS: MEAN CORPUSCULAR HEMOGLOBIN 31.4 pg (27.0-33.0); MEAN CORPUSCULAR HGB CONC 32.8 g/dl (32.0-36.5); MEAN CORPUSCULAR VOLUME 95.7 fl (80.0-96.0); RED CELL DISTRIBUTION WIDTH 14.6 % (11.5-14.5); WHITE BLOOD COUNT 8.6 K/mm3 (4.0-10.0)
[2016-11-29 11:10] LABS: ALBUMIN 1.8 GM/DL (3.2-5.2); ALBUMIN/GLOBULIN RATIO 0.43 (1.00-1.93); ALKALINE PHOSPHATASE 110 U/L (45-117); ALT/SGPT 15 U/L (12-78); ANION GAP 6 MEQ/L (8-16); AST/SGOT 18 U/L (15-37); BILIRUBIN,TOTAL 0.2 MG/DL (0.2-1.0); BLOOD UREA NITROGEN 52 MG/DL (7-18); CALCIUM LEVEL 7.6 MG/DL (8.8-10.2); CARBON DIOXIDE LEVEL 28 MEQ/L (21-32); CHLORIDE LEVEL 103 MEQ/L (98-107); CREATININE FOR GFR 1.18 MG/DL (0.70-1.30); GLOMERULAR FILTRATION RATE > 60.0 (>35); GLUCOSE, FASTING 137 MG/DL (83-110); POTASSIUM SERUM 3.9 MEQ/L (3.5-5.1); SODIUM LEVEL 137 MEQ/L (136-145)
== END ==
LOC: SKLAB4 09:24
PROVIDERS: ATTEND Internal Medicine
DX: Z79.01 Long term (current) use of anticoagulants (principal)

== ENCOUNTER → 2016-11-30 | Outpatient (REF) | payer MEDICARE ==
[2016-11-30 08:36] LABS: RETIC HEMOGLOBIN CONTENT CHr 32.1 PG (24-36); RETICULOCYTE % ADVIA2120 1.3 % (0.5-1.5)
== END ==
LOC: SKLAB4 01:19
PROVIDERS: ATTEND Internal Medicine
DX: D64.9 Anemia, unspecified (principal); Z12.11 Encounter for screening for malignant neoplasm of colon

== ENCOUNTER → 2016-11-30 | Outpatient (REF) | payer MEDICARE | LOC: SKLAB4 23:00 | PROVIDERS: ATTEND Internal Medicine | DX: D64.9 Anemia, unspecified (principal) ==

== ENCOUNTER → 2016-12-01 | Outpatient (REF) ==
[~2016-12-01] MED LIST changes: +ACETAMINOPHEN TAB 650MG DOSE (2X325MG) PO SCH; +SODIUM CHLORIDE 0.9% INJ 10 ML SYR IV PRN; +SODIUM CHLORIDE 0.9% INJ 10 ML SYR IV SCH; +diphenhydrAMINE 25 MG CAP PO SCH
== END ==
LOC: M INFU 08:53
PROVIDERS: ATTEND Nurse Practitioner Adult Health
DX: D64.9 Anemia, unspecified (principal)

== ENCOUNTER → 2016-12-06 | Outpatient (REF) ==
[~2016-12-06] MED LIST changes: -ACETAMINOPHEN TAB 650MG DOSE (2X325MG) PO SCH; -SODIUM CHLORIDE 0.9% INJ 10 ML SYR IV PRN; -SODIUM CHLORIDE 0.9% INJ 10 ML SYR IV SCH; -diphenhydrAMINE 25 MG CAP PO SCH
[2016-12-06 12:49] LABS: MEAN CORPUSCULAR HEMOGLOBIN 31.2 pg (27.0-33.0); MEAN CORPUSCULAR HGB CONC 32.1 g/dl (32.0-36.5); MEAN CORPUSCULAR VOLUME 97.3 fl (80.0-96.0); RED CELL DISTRIBUTION WIDTH 14.3 % (11.5-14.5); WHITE BLOOD COUNT 7.1 K/mm3 (4.0-10.0)
[2016-12-06 13:25] LABS: ALBUMIN 1.9 GM/DL (3.2-5.2); ALBUMIN/GLOBULIN RATIO 0.43 (1.00-1.93); ALKALINE PHOSPHATASE 117 U/L (45-117); ALT/SGPT 16 U/L (12-78); ANION GAP 4 MEQ/L (8-16); AST/SGOT 20 U/L (15-37); BILIRUBIN,TOTAL 0.3 MG/DL (0.2-1.0); BLOOD UREA NITROGEN 38 MG/DL (7-18); CALCIUM LEVEL 8.1 MG/DL (8.8-10.2); CARBON DIOXIDE LEVEL 31 MEQ/L (21-32); CHLORIDE LEVEL 108 MEQ/L (98-107); CREATININE FOR GFR 0.92 MG/DL (0.70-1.30); GLOMERULAR FILTRATION RATE > 60.0 (>35); GLUCOSE, FASTING 139 MG/DL (83-110); SODIUM LEVEL 143 MEQ/L (136-145); TOTAL PROTEIN 6.3 GM/DL (6.4-8.2)
== END ==
LOC: SKLAB5 10:46
PROVIDERS: ATTEND Internal Medicine
DX: D64.9 Anemia, unspecified (principal); G20 Parkinson's disease; Z79.899 Other long term (current) drug therapy

== ENCOUNTER → 2016-12-13 | Outpatient (REF) ==
[2016-12-13 10:14] LABS: MEAN CORPUSCULAR HEMOGLOBIN 31.8 pg (27.0-33.0); MEAN CORPUSCULAR HGB CONC 33.8 g/dl (32.0-36.5); MEAN CORPUSCULAR VOLUME 94.1 fl (80.0-96.0); RED CELL DISTRIBUTION WIDTH 14.7 % (11.5-14.5); WHITE BLOOD COUNT 10.9 K/mm3 (4.0-10.0)
[2016-12-13 10:37] LABS: ALBUMIN 1.9 GM/DL (3.2-5.2); ALBUMIN/GLOBULIN RATIO 0.43 (1.00-1.93); ALKALINE PHOSPHATASE 115 U/L (45-117); ALT/SGPT 10 U/L (12-78); ANION GAP 7 MEQ/L (8-16); AST/SGOT 15 U/L (15-37); BILIRUBIN,TOTAL 0.4 MG/DL (0.2-1.0); BLOOD UREA NITROGEN 35 MG/DL (7-18); CALCIUM LEVEL 8.2 MG/DL (8.8-10.2); CARBON DIOXIDE LEVEL 28 MEQ/L (21-32); CHLORIDE LEVEL 106 MEQ/L (98-107); CREATININE FOR GFR 1.01 MG/DL (0.70-1.30); GLOMERULAR FILTRATION RATE > 60.0 (>35); GLUCOSE, FASTING 116 MG/DL (83-110); POTASSIUM SERUM 3.7 MEQ/L (3.5-5.1); SODIUM LEVEL 141 MEQ/L (136-145); TOTAL PROTEIN 6.3 GM/DL (6.4-8.2)
== END ==
LOC: SKLAB4 11:29
PROVIDERS: ATTEND Internal Medicine
DX: G20 Parkinson's disease (principal); D64.9 Anemia, unspecified; E03.9 Hypothyroidism, unspecified; Z79.899 Other long term (current) drug therapy

== ENCOUNTER → 2016-12-20 | Outpatient (REF) | LOC: SKLAB4 11:42 | PROVIDERS: ATTEND Internal Medicine | DX: D64.9 Anemia, unspecified (principal); Z53.9 Procedure and treatment not carried out, unspecified reason ==

== ENCOUNTER → 2016-12-22 | Outpatient (REF) | payer MEDICARE | LOC: SKLAB4 11:15 | PROVIDERS: ATTEND Internal Medicine | DX: Z13.9 Encounter for screening, unspecified (principal) ==

== ENCOUNTER → 2016-12-29 | Outpatient (REF) | payer MEDICARE | LOC: SKLAB4 10:15 | PROVIDERS: ATTEND Internal Medicine | DX: Z22.322 Carrier or suspected carrier of Methicillin resistant Staphylococcus aureus (principal) ==